=== PATIENT | female | born 1980 | race Caucasian/White ===

== ENCOUNTER 2020-05-07 10:54 | Outpatient (REF) | payer OTHER, SELFPAY ==
[2020-05-07 14:31] LABS: Alanine Aminotransferase 13 U/L (0-31); Albumin Level 4.1 g/dL (3.5-5.0); Alkaline Phosphatase 48 U/L (39-117); Anion Gap 13 (12-20); Aspartate Amino Transferase 13 U/L (5-31); Bilirubin Total 0.8 mg/dL (0.0-1.0); Blood Urea Nitrogen 12 mg/dL (9-16); Calcium 8.4 mg/dL (8.4-10.2); Carbon Dioxide 26 mmol/L (22-29); Chloride 105 mmol/L (96-108); Cholesterol 194 mg/dL; Estimated Glomerular Filt Rate > 60; Glucose Fasting 79 mg/dL (60-99); HDL Cholesterol 51 mg/dL; LDL Cholesterol Calculated 105 mg/dl; Potassium 4.1 mmol/l (3.3-5.1); Sodium 140 mmol/L (135-145); Total Protein 6.7 g/dL (6.5-8.0); Triglycerides 194 mg/dL
[2020-05-07 14:36] LABS: TSH reflex Free T4 0.67 mIU/mL (0.32-4.0)
== END 2020-05-07 10:55 | disposition home or self-care (01) ==
LOC: HO.HMGCLDS 10:54
PROVIDERS: PCP Nurse Practitioner Family; Visit Provider Nurse Practitioner Family
DX: Z00.00 Encounter for general adult medical examination without abnormal findings (principal)
CPT/HCPCS: 80053; 80061; 84443

== ENCOUNTER 2020-06-10 13:51 | Outpatient (REF) | payer OTHER, SELFPAY ==
[2020-06-10 13:55] LABS: Urine Cytology See Pathology rpt
== END 2020-06-10 13:52 | disposition home or self-care (01) ==
LOC: HO.LNP 13:51
PROVIDERS: Visit Provider Nurse Practitioner Family
DX: R31.29 Other microscopic hematuria (principal); K58.9 Irritable bowel syndrome, unspecified
CPT/HCPCS: 87086; 88112

== ENCOUNTER 2020-08-14 08:32 | Outpatient (REF) | payer OTHER, SELFPAY ==
[2020-08-14 09:50] LABS: Leukocytes Stool Qualitative NEGATIVE (NEGATIVE)
[2020-08-14 09:59] LABS: CDIFF Ag Negative (Negative); CDIFF Internal ctrl Dots and bkg OK (V); CDiff Toxin Negative (Negative)
[2020-08-14 10:07] LABS: Alanine Aminotransferase 11 U/L (0-31); Alkaline Phosphatase 37 U/L (39-117); Anion Gap 15 (12-20); Aspartate Amino Transferase 10 U/L (5-31); Bilirubin Total 0.5 mg/dL (0.0-1.0); Blood Urea Nitrogen 15 mg/dL (9-16); C Reactive Protein 0.27 mg/dL (< or = 0.50); Calcium 8.7 mg/dL (8.4-10.2); Carbon Dioxide 23 mmol/L (22-29); Chloride 108 mmol/L (96-108); Cholesterol 174 mg/dL; Estimated Glomerular Filt Rate > 60; Glucose Fasting 93 mg/dL (60-99); HDL Cholesterol 42 mg/dL; LDL Cholesterol Calculated 107 mg/dl; Potassium 4.3 mmol/L (3.3-5.1); Sodium 142 mmol/L (135-145); Total Protein 6.4 g/dL (6.5-8.0); Triglycerides 127 mg/dL
[2020-08-14 10:32] LABS: TSH reflex Free T4 0.54 uIU/mL (0.32-4.0)
[2020-08-14 10:33] LABS: Erythrocyte Sedimentation Rate 1 MM/HR (0-20)
== END 2020-08-14 08:33 | disposition home or self-care (01) ==
LOC: HO.LAB 08:32
PROVIDERS: PCP Nurse Practitioner Family; Visit Provider Nurse Practitioner Family
DX: Z00.00 Encounter for general adult medical examination without abnormal findings (principal); R19.7 Diarrhea, unspecified
CPT/HCPCS: 36415; 80053; 80061; 84443; 85652; 86140; 87045; 87046; 87177; 87209; 87324; 87329; 87338; 87449; 89055

== ENCOUNTER → 2020-09-05 13:20 | Outpatient (BNVA) | payer OTHER, SELFPAY | PROVIDERS: PCP Nurse Practitioner Family; Visit Provider Physician Assistant ==

== ENCOUNTER → 2020-10-22 12:41 | Outpatient (BNVA) | payer OTHER, SELFPAY | PROVIDERS: PCP Nurse Practitioner Family; Visit Provider Nurse Practitioner Family ==

== ENCOUNTER 2021-04-02 08:38 | Emergency (ER) | payer OTHER, SELFPAY ==
--- NOTE | 2021-04-02 | ECG_ITS ---
Test Reason : chest pain Blood Pressure : / mmHG Vent. Rate : 084 BPM Atrial Rate : 084 BPM P-R Int : 120 ms QRS Dur : 088 ms QT Int : 368 ms P-R-T Axes : 023 059 014 degrees QTc Int : 434 ms Normal sinus rhythm Normal ECG When compared with ECG of 14-DEC-2013 12:18, No significant change was found Referred By: Generic ED Physician Electronically Signed By:WATSON SALTER MD
--- NOTE | ~2021-04-02 | XR_ITS ---
EXAMINATION: XR CHEST CLINICAL INFORMATION: Chest pain COMPARISON: 10/22/2016 TECHNIQUE: Frontal view of the chest was obtained. FINDINGS: Lungs are well-inflated and clear. Trachea is midline in position. No interstitial disease, consolidation or mass. No pulmonary edema, pleural effusion or pneumothorax. Cardiac silhouette and pulmonary vessels are normal in size. The mediastinum and twyla have normal contour. The visualized bones, and upper abdomen, are unremarkable. XR/XR chest 1V IMPRESSION: No acute cardiopulmonary abnormality.
[2021-04-02 08:56] VITALS: BP 119/69; PULSE 80; RESP 9; TEMP 36.6; O2SAT 99; BMI 44.7
--- NOTE | 2021-04-02 09:27 | ED.CHESTPAIN ---
HPI - Chest Pain General Chief Complaint: Chest Pain Stated Complaint: chest pain Time Seen by Provider: 04/02/21 09:27 Source: patient Mode of arrival: ambulatory Limitations: no limitations History of Present Illness HPI narrative: Weird sensation in her chest on the left side down her left arm into her back. Described mostly as a burning. symptoms come on even at rest. No sudden in the family. Patient does have IBS issues. patient only smokes marijuana complaint: chest pain Timing of current episode: episodic (when the feelings come it lasts over an hour) Prior episodes: Yes Onset: during rest Pain location: left chest Pain radiation: left arm and back Quality: other (burning) Exacerbating factors: nothing Risk Factors Coronary artery disease risk factors: none Related Data Previous Rx's Medication Instructions Recorded omeprazole 20 mg capsule,delayed 20 mg PO DAILY #30 cap 05/31/20 release fluticasone propionate 50 1 spray INTRANASAL DAILY #16 ml 10/14/20 mcg/actuation nasal spray,suspension lactobacillus combination no.8 3 3,000 mmu cells PO DAILY #30 cap 10/22/20 billion cell capsule (Adult Probiotic) methylcellulose (laxative) 500 mg 500 mg PO DAILY #30 tab 10/22/20 tablet (Citrucel) albuterol sulfate 90 mcg/actuation 2 puff PO Q6H PRN 30 Days #8.5 g 10/29/20 aerosol inhaler dicyclomine 10 mg capsule 10 mg PO TID #90 cap 11/04/20 cetirizine 10 mg tablet 10 mg PO DAILY #30 tab 12/17/20 ProAir HFA 90 mcg/actuation 2 puff PO Q6H PRN #8.5 ea NS 03/20/21 aerosol inhaler (albuterol sulfate) pantoprazole 40 mg tablet,delayed 40 mg PO DAILY #20 tab 04/02/21 release (Protonix) Allergies Allergy/AdvReac Type Severity Reaction Status Date / Time azithromycin [From ZITHROMAX] Allergy Unknown hives Verified 10/22/20 12:41 cefaclor [From CECLOR] Allergy Unknown UNKNOWN Verified 10/22/20 12:41 Review of Systems Constitutional: Constitutional: Reports no additional constitutional complaints Eyes: Eyes: Reports no additional eye complaints ENT: Denies dizziness Cardiovascular: Cardiovascular: Reports no additional cardiovascular complaints Respiratory: Respiratory: Reports as per HPI Gastrointestinal: Gastrointestinal: Reports no additional gastrointestinal complaints Genitourinary: Genitourinary: Reports no additional female genitourinary complaints Musculoskeletal: Musculoskeletal: Reports no additional musculoskeletal complaints Integumentary/Breasts: Skin/Breast: Denies rash Neurologic: Reports system reviewed and no additional complaints, except as documented, Denies dizziness and Denies Sensory deficit (Neuro) Psychiatric: Psychiatric: Denies anxiety [facility] Past Medical History Medical History Dyspepsia Headache syndrome Irritable bowel Nausea Surgical History No pertinent past surgical history Family History Family History Father Medical history non-contributory Mother Medical history non-contributory Son No problems noted. Daughter No problems noted. 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 Physical Exam Vital Signs: Vital Signs: Last Vital Signs Temp 98 F 04/02/21 08:56 Pulse 80 04/02/21 08:56 Resp 9 L 04/02/21 08:56 BP 119/69 04/02/21 08:56 Pulse Ox 99 04/02/21 08:56 Body Mass Index 44.7 Const: General: healthy appearing Nutritional Appearance: average body habitus Orientation/consciousness: oriented to person and patient oriented x3 Limitations: no limitations HENMT: Head: Yes normal to inspection Ears: external ears normal General nose exam: Normal external nose present Mouth: Normal oral and palatal mucosa present and oropharynx normal Throat: Yes posterior oropharynx normal Eyes: General: appearance normal, both eyes and all related structures Neck: Other: supple Neck: Yes normal visual inspection Chest: Chest palpation & inspection: normal inspection of the chest Resp: Auscultation: clear to auscultation bilaterally Cardio: Jugular venous distension: no JVD Rate: regular rate Rhythm: regular rhythm Heart sounds: S1 normal heart sound present and S2 normal heart sound present GI: Inspection: Yes normal to inspection Palpation (GI): Soft to palpation, nontender and No hepatosplenomegaly present Auscultation: normal bowel sounds : General: Yes no CVA tenderness Back/Spine/Pelvis: Back: no CVA tenderness Skin: General skin exam: no rashes or lesions noted Neuro: General: oriented to person and patient oriented x3 Cranial nerves: Yes CN's II-XII intact bilaterally Motor exam (neuro): 5/5 motor strength present throughout Sensory Exam: No Sensory deficit (Neuro) Extrem: General: Yes normal to inspection Psych: Appearance: grossly normal Course Reevaluation(s) Reevaluation #1: Patient with normal EKG, normal CXR, normal labs and troponin despite at least 3 days of chest pain. My impression is that this is most likely GI, will start protonix and have patient follow up with PMD Time: 10:53 [facility] - Chest Pain Lab Data Result diagrams: 04/02/21 09:49 04/02/21 09:49 Labs: Lab Results 04/02/21 04/02/21 04/02/21 Range/Units 09:49 09:49 09:49 WBC 8.4 (4.8-10.8) X10*3/uL RBC 4.48 (4.20-5.50) X10*6/uL Hgb 14.0 (12.0-16.0) g/dl Hct 41.1 (37.0-47.0) % MCV 91.7 (80.0-98.0) fL MCH 31.3 (27.0-33.0) pg MCHC 34.1 (31.0-35.0) g/dl RDW 13.0 (11.0-16.0) % Plt Count 268 (160-400) X10*3/uL MPV 9.3 L (9.4-12.3) fL Immature Gran % (Auto) 0.4 (0.0-0.4) % Neut % (Auto) 68.7 (45-73) % Lymph % (Auto) 24.5 (20-40) % [place] % (Auto) 5.4 (2-11) % Eos % (Auto) 0.5 (0-4) % Baso % (Auto) 0.5 (0-2) % Lymph # (Auto) 2.1 (1.2-4.9) X10*3/uL [place] # (Auto) 0.5 (0.1-1.2) X10*3/uL Eos # (Auto) 0.0 (0.0-0.4) X10*3/uL Baso # (Auto) 0.0 (0.0-0.2) X10*3/uL Abs Immat Gran (auto) 0.03 (0.00-0.03) X10*3/uL Absolute Neuts (auto) 5.8 (2.0-8.3) x10*3/uL Absolute Nucleated RBC 0.000 (0.0-0.012) X10*3/uL Nucleated RBC % (auto) 0.0 (0.0-0.2) /100WBC Sodium 138 (135-145) mmol/L Potassium 4.0 (3.3-5.1) mmol/L Chloride 107 (96-108) mmol/L Carbon Dioxide 24 (22-29) mmol/L Anion Gap 11 L (12-20) BUN 11 (9-16) mg/dL Creatinine 0.57 (0.5-1.4) mg/dL Estim Creat Clear Calc 173.6 Estimated GFR > 60 Random Glucose 98 (60-115) mg/dL Calcium 8.6 (8.4-10.2) mg/dL Troponin I High Sens < 3.5 (<3.5-17.0) ng/L Imaging Data Chest x-ray: Radiologist's impression: IMPRESSION: No acute cardiopulmonary abnormality. ? ECG Data ECG #1: Attestation: I personally reviewed and interpreted this ECG as follows: Interpretation: sinus rate of 80, no st or twave changes Discharge Plan Discharge Clinical Impression: Dyspepsia, Atypical chest pain Chest pain Qualifiers: Chest pain type: unspecified Qualified Code(s): R07.9 - Chest pain, unspecified Patient Disposition: Home, Self-Care Instructions: Gastroesophageal Reflux Disease (ED), Noncardiac Chest Pain (ED) Prescriptions: New pantoprazole [Protonix] 40 mg tablet,delayed release (DR/EC) 40 mg PO DAILY Qty: 20 RF: 0 No Action omeprazole 20 mg capsule,delayed release(DR/EC) 20 mg PO DAILY Qty: 30 RF: 1 fluticasone propionate 50 mcg/actuation spray,suspension 1 spray intranasal DAILY Qty: 16 RF: 2 albuterol sulfate 90 mcg/actuation HFA aerosol inhaler 2 puff PO Q6H PRN (Reason: bronchospasm) 30 Days Qty: 8.5 RF: 3 dicyclomine 10 mg capsule 10 mg PO TID Qty: 90 RF: 1 cetirizine 10 mg tablet 10 mg PO DAILY Qty: 30 RF: 2 albuterol sulfate [ProAir HFA] 90 mcg/actuation HFA aerosol inhaler 2 puff PO Q6H PRN (Reason: for wheezing) Qty: 8.5 RF: 0 Citrucel 500 mg tablet 500 mg PO DAILY Qty: 30 RF: 5 Adult Probiotic 3 billion cell capsule 3,000 mmu cells PO DAILY Qty: 30 RF: 4 Referrals: Neo Leung, FI[employer]/CONTAINMENT WORKER-BC [Primary Care Provider] - 1 week
[2021-04-02 09:54] LABS: MANUAL DIFF FLAG NO
[2021-04-02 09:55] LABS: Basophils Percent Auto 0.5 % (0-2); Eosinophils Percent Auto 0.5 % (0-4); Hematocrit 41.1 % (37.0-47.0); Imm Gran Abs Auto 0.03 X10*3/uL (0.00-0.03); Imm Gran Pct Auto 0.4 % (0.0-0.4); Lymphocytes Absolute Auto 2.1 X10*3/uL (1.2-4.9); Lymphocytes Percent Auto 24.5 % (20-40); Mean Corpuscular HGB Conc 34.1 g/dl (31.0-35.0); Mean Corpuscular Hemoglobin 31.3 pg (27.0-33.0); Mean Corpuscular Volume 91.7 fL (80.0-98.0); Mean Platelet Volume 9.3 fL (9.4-12.3); Monocytes Absolute Auto 0.5 X10*3/uL (0.1-1.2); Monocytes Percent Auto 5.4 % (2-11); Neutrophils Absolute Auto 5.8 x10*3/uL (2.0-8.3); Neutrophils Percent Auto 68.7 % (45-73); Platelet Count 268 X10*3/uL (160-400); Red Blood Count 4.48 X10*6/uL (4.20-5.50); White Blood Count 8.4 X10*3/uL (4.8-10.8)
[2021-04-02] MEDS: Famotidine 20 MG TABLET PO (09:57)
[2021-04-02 10:21] LABS: Troponin-I High Sensitivity < 3.5 ng/L (<3.5-17.0)
[2021-04-02 10:45] LABS: Anion Gap 11 (12-20); Blood Urea Nitrogen 11 mg/dL (9-16); Calcium 8.6 mg/dL (8.4-10.2); Carbon Dioxide 24 mmol/L (22-29); Chloride 107 mmol/L (96-108); Creatinine Clr Calc Pharmacy 173.6; Estimated Glomerular Filt Rate > 60; Glucose Random 98 mg/dL (60-115); Sodium 138 mmol/L (135-145)
== END 2021-04-02 11:32 | disposition home or self-care (01) ==
PROVIDERS: Emergency Provider Emergency Medicine; PCP Nurse Practitioner Family
DX: R07.89 Other chest pain (principal); R10.13 Epigastric pain
CPT/HCPCS: 36415; 71045; 80048; 84484; 85025; 93005; 99283

== ENCOUNTER → 2021-04-10 14:48 | Outpatient (REF) | payer OTHER, SELFPAY ==
--- NOTE | 2021-04-10 14:55 | HM_ITS ---
Conclusion: 1. Patient was monitored for total period of 3 days and 2 hours 2. Baseline rhythm was normal sinus rhythm with average heart of 79 beats per minute 3. No significant pauses or bradycardia noted 4. Total of 11 isolated PACs accounting for less than 0.01% of total burden account for very rare PACs 5. No patient reported symptoms MTDD
== END ==
LOC: HO.CARD 14:48
PROVIDERS: Visit Provider Nurse Practitioner Family
DX: R07.9 Chest pain, unspecified (principal)
CPT/HCPCS: 93242

== ENCOUNTER 2021-05-02 14:26 | Outpatient (REF) | payer OTHER, SELFPAY ==
[2021-05-02 16:10] LABS: Lipase 23 U/L (8-78)
[2021-05-02 16:29] LABS: TSH reflex Free T4 0.62 uIU/mL (0.32-4.0)
[2021-05-02 16:42] LABS: Folate 9.4 ng/mL (> or = 4.0); Vitamin B12 295 pg/mL (200-900)
[2021-05-06 14:26] LABS: Vitamin D 25-OH, D2 <4 ng/mL; Vitamin D 25-OH, D3 16 ng/mL; Vitamin D 25-OH, Total 16 ng/mL (30-100)
[2021-05-06 16:47] LABS: Transglutaminase Ab IgG <1.0 U/mL; Transglutaminase IgA <1.0 U/mL
== END 2021-05-02 14:27 | disposition home or self-care (01) ==
LOC: HO.LAB 14:26
PROVIDERS: Absent Provider Nurse Practitioner Family; PCP Nurse Practitioner Family; Visit Provider Nurse Practitioner Family
DX: R10.11 Right upper quadrant pain (principal); R19.7 Diarrhea, unspecified; K58.2 Mixed irritable bowel syndrome; K21.9 Gastro-esophageal reflux disease without esophagitis; E55.9 Vitamin D deficiency, unspecified; R14.0 Abdominal distension (gaseous)
CPT/HCPCS: 36415; 81479; 82306; 82397; 82607; 82746; 83516; 83520; 83690; 84443; 86140; 88346; 88350; 99212

== ENCOUNTER → 2021-06-12 08:31 | Outpatient (REF) | payer OTHER, SELFPAY ==
--- NOTE | ~2021-06-12 | NM_ITS ---
Lexiscan Myocardial perfusion study Indication: Chest pain, assess for coronary disease and ischemia Technique: The patient was brought in for a Lexiscan perfusion study on 06/12/2021 and was injected 0.4 mg of Lexiscan intravenously. Within a minute of this injection 40 mCi of sestamibi was given intravenously. Images were obtained using the SPECT gamma camera interlaced with the gating device. Images were obtained in supine position. Resting perfusion study was performed on 06/16/2021. Patient was administered 40 mCi of sestamibi intravenously at rest. Images were then obtained in supine position. Total DLP 171mGy-cm. Images were processed with the software and compared side to side in short axis, horizontal long axis and vertical long axis views. Findings: Raw acquisition was reviewed. The stress perfusion study showed slightly diminished tracer uptake in the mid anterior wall. With CT at admission correction, perfusion rather appears worse, most likely technical in nature. The gated study shows normal LV systolic function with calculated LVEF of 56%. LV cavity is normal in size. The gated study shows normal wall thickening and contraction of segments. Resting study shows slightly reduced tracer uptake in the mid anterior wall. With CT attenuation correction, there is worsened uptake in the distal part of anterior wall, apex, most likely artifactual. Gating at rest reveals normal wall motion with ejection fraction at 68%. The findings are consistent with mild midanterior fixed defect most likely artifactual, possibly from soft tissue attenuation. No reversible defects. NM/NM cardiolite stress test Impression: 1. Myocardial perfusion imaging study shows no evidence of any ischemia or infarction. Likely normal perfusion. 2. Gated LVEF is 56% during stress and 68% during rest. 3. Transient ischemic dilatation not present. EKG component of the test reported separately.
--- NOTE | 2021-06-12 08:36 | CA_ITS ---
Transthoracic Echocardiogram Patient (Last, First, Middle): Chhaya Adler, Gender: Female Date of : 1980 Age: 40 Procedure Date: 06/12/2021 Procedure Type: Transthoracic Echocardiogram Location: OP Height: 165.1 cm Weight: 127.01 kg BSA: 2.28 m2 Heart Rate: bpm BP: 105 / 60 mmHg Sr. Strategic Sourcing Manager: DAVID Referring MD: Neo Leung [facility] Licensed Reactor Operator: Marcial Salvador MD Symptoms: R07.9 - Chest pain, unspecified Study Quality: Fair ECG Rhythm: Sinus Conclusions: - Essentially normal study Findings Left Ventricle Normal left ventricular size, thickness, and systolic function. The visually estimated ejection fraction is between 60-65%. Spectral Doppler is indicative of a normal filling pattern. Right Ventricle Normal right ventricular cavity size and systolic function. Atria Both atria are normal in size. There is a mobile atrial septum noted. Interatrial shunt cannot be excluded. Aortic Valve The aortic valve structure and function is likely normal. There is no aortic valve stenosis. There is no aortic valve regurgitation. Mitral Valve Normal mitral valve structure and function. There is trace mitral valve regurgitation. There is no mitral valve stenosis. Pulmonic Valve The pulmonic valve is likely normal. Tricuspid Valve Likely normal tricuspid valve structure and function. There is trace tricuspid valve regurgitation. The right ventricular systolic pressure is normal. The right ventricular systolic pressure is 27 mmHg. Normal right atrial pressure. There is no evidence of pulmonary hypertension. Great Vessels All visible segments of the aorta are normal in size. The pulmonary artery was not well visualized. Venous The inferior vena cava is normal in size and collapses greater than 50% with inspiration. Pericardium/Pleural There is no evidence of pericardial effusion. Prior Study Comparison No prior study available for comparison. Measurements M-Mode Liner Measurements Normals - Women/Men LVPWd: 1.43 0.6-0.9/0.6-1.0 cm 2D Linear Measurements IVSd: 0.88 0.6-0.9/0.6-1.0 cm LVIDd: 5.10 3.9-5.3/4.2-5.9 cm LVIDd Index: 2.24 2.4-3.2/2.2-3.1 cm/m2 LVIDs: 3.30 2.0-3.6 cm LVPWd: 1.23 0.7-1.1 cm Ao Root: 3.00 2.1-3.5 cm LA Diam: 3.70 2.7-3.8/3.0-4.0 cm LAIDs Index: 1.62 1.5-2.3 cm/m2 LV Mass: 251.35 67-162/88-224 g LV Mass Index: 110.24 43-95/49-115 g/m2 LVOT Diam: 2.00 3.0+(-)1.3 cm 2D Systolic Function EF 4C: 69.30 >55% EF 2C: 65.10 >55% EF BiP: 66.20 >55% Mitral Valve MV Pk E: 0.76 MV PK A: 0.51 MV Decel Time: 248.00 E/A: 1.50 E'Lateral: 11.50 E'Medial: 8.81 E/E' Med: 8.70 E/E' Lat: 6.60 PHT: 73.00 MVA PHT: 3.01 Decel Comanche: 3.07 Aortic Valve AoV Pk Tomi: 1.53 AoV Pk Grad: 9.00 LVOT LVOT Pk Tomi: 1.26 LVOT Mn Tomi: 0.85 LVOT VTI: 0.29 LVOT Pk Grad: 6.00 LVOT Mn Grad: 3.00 LVOT Diam: 2.00 LVOT Area: 3.14 Diastolic Function MV Pk E: 0.76 MV Pk A: 0.51 E/A: 1.50 E'Medial: 8.81 E/E' Med: 8.70 E' Laterial: 11.50 E/E' Lat: 6.60 Right Ventricle TAPSE (mm): 2.67 TVS' Tomi: 14.40 Tricuspid Valve TR Pk Tomi: 2.46 TR Pk Grad: 24.00 RA Press: 3.00 RVSP: 27.00 Great Vessels Aorta Ao Root-2D: 3.00 2.0-3.7 cm Updated in Other Vendor System with Status of Final Marcial Salvador MD electronically signed on 06/12/2021 11:02:26 AM with status of Final
--- NOTE | 2021-06-12 08:58 | CA_ITS ---
Acquisition Time: 2021-06-12 09:48:42 Total Exercise Time: 00:05:46 Test Indications: Chest Pain FAMILY HX CAD Medications: ALBUTEROL OMEPRAZOLE PRO AIR ONDANSETRON Protocol: FRANTZ Max HR: 127 BPM 70% of Pred: 181 BPM Max BP: 148/082 mmHG Max Work Load: 7.0 METS Exercise stress test with exercise 5 min 46 sec of Frantz protocol, achieving 66% MPHR and 7 MET with reported inability to walk at faster pace due to ankle issue and asthma. Treadmill placed in recovery and slowed to 1 MPH. Testing changed to a pharmacological nuclear stress test with Lexiscan injection, with report of sob, no chest pains, without arrythmia, with normotensive response to injection, with nondiagnostic EKG for ischemia. In recovery she reported mild lightheadedness that was treated with Aminophylline 75mg IVP to reverse Lexiscan with resolution of symptom. Nuclear images pending. Test reviewed with Dr Green. Referred By: Neo Leung Overread By: JEROME YAN
== END ==
LOC: HO.CARD 08:31
PROVIDERS: Visit Provider Nurse Practitioner Family
DX: R07.9 Chest pain, unspecified (principal); Z82.49 Family history of ischemic heart disease and other diseases of the circulatory system
CPT/HCPCS: 78452; 93017; 93306; A9500; J0280; J2785

== ENCOUNTER 2021-08-25 19:01 | Emergency (ER) | payer OTHER, SELFPAY | END 2021-08-25 22:12 | disposition left against medical advice (07) | PROVIDERS: Emergency Provider Emergency Medicine; PCP Emergency Medicine | DX: Z04.1 Encounter for examination and observation following transport accident (principal) ==

== ENCOUNTER → 2022-09-21 15:32 | Outpatient (BNVA) | payer OTHER, SELFPAY | PROVIDERS: PCP Nurse Practitioner Family; Visit Provider Nurse Practitioner Family | DX: K21.9 Gastro-esophageal reflux disease without esophagitis (principal); K58.2 Mixed irritable bowel syndrome; R10.13 Epigastric pain; E55.9 Vitamin D deficiency, unspecified | CPT/HCPCS: 99212 ==

== ENCOUNTER 2022-11-27 08:38 | Outpatient (REF) | payer OTHER, SELFPAY ==
[2022-11-27 11:32] LABS: Appearance Urine Clear; Color Urine Yellow; Glucose Urine UA Negative (Negative); Leukocyte Esterase Urine Negative (Negative); Nitrite Urine Negative (Negative); PH 7.5 (5.0-9.0); Specific Gravity - Urine 1.025 (1.005-1.025); UMIC TRIGGER UACC YES; Urine Blood Trace (Negative); Urine Ketones Negative (Negative); Urine Protein Negative (Neg-Trace)
[2022-11-27 11:36] LABS: Bacteria Urine None Seen (None Seen); Hyaline Casts Urine 0-2 /LPF (0-2); WBC Urine 0-5 /HPF (0-5)
[2022-12-02 11:48] LABS: Vitamin D 25-OH, D2 <4 ng/mL; Vitamin D 25-OH, D3 20 ng/mL; Vitamin D 25-OH, Total 20 ng/mL (30-100)
== END 2022-11-27 08:39 | disposition home or self-care (01) ==
LOC: HO.HMGCLDS 08:38
PROVIDERS: Absent Provider Nurse Practitioner Family; PCP Nurse Practitioner Family; Visit Provider Nurse Practitioner Family
DX: Z00.00 Encounter for general adult medical examination without abnormal findings (principal); E55.9 Vitamin D deficiency, unspecified; R19.7 Diarrhea, unspecified; R10.9 Unspecified abdominal pain; Z77.29 Contact with and (suspected) exposure to other hazardous substances
CPT/HCPCS: 36415; 80053; 80061; 81001; 82306; 82607; 82746; 83690; 84443; 85025

== ENCOUNTER 2023-04-13 14:45 | Outpatient (AMB) | payer OTHER, SELFPAY ==
--- NOTE | 2023-04-13 14:48 | A.OFFVIS_ITS ---
Intake Vital Signs 04/13/23 14:50 Height 5 ft 5 in Weight 302 lb 0.533 oz BMI 50.3 BP 111/62 Blood Pressure Location Lt brachial Position Sitting Pulse 79 Intake Visit Reasons: follow up r/s from 12/30 Intake Note: Chhaya presents in the office as a follow up. CC: She states that she is having the same symptoms as she usually has. Mechanotherapist Required: No Allergies azithromycin [From ZITHROMAX] Allergy (Unknown, Verified 04/13/23 14:51) hives cefaclor [From CECLOR] Allergy (Unknown, Verified 04/13/23 14:51) UNKNOWN HPI follow up r/s from 12/30 HPI Details LAST VISIT: Irritable bowel Excluded IBD, most likely irritable bowel. Discussed with patient FODMAP diet. List of food to avoid as well as list of food recommended given to patient. Patient can also try elimination diet if that is easier to follow. Patient has symptoms of constipation then loose stools depending on the food that she eats. I will send script for Citrucel to help her bulk her stools and senna to help her eliminate her bowels better. Dyspepsia Occasional dyspepsia without dysphagia or odynophagia. Discussed with patient avoiding dietary triggers and late night snacking. Staying upright for minimum 3 hours after meals discussed with patient. Patient can continue omeprazole. She can take famotidine at that time. Patient also reports postprandial abdominal bloating which is most likely related to the type of food that she, however we will rule out pancreatic insufficiency. Will order lipase to rule out pancreatitis. Possibility of intolerance to certain food we will order RAST allergen test GERD (gastroesophageal reflux disease) Symptoms of dyspepsia and acid reflux as well as epigastric discomfort depending on the food the patient eats most likely. Will send her to check for H pylori. Patient will be sent in near future for upper endoscopy to rule out esophagitis, gastritis, duodenitis, gastric or peptic ulcers, H pylori, Zapien's I will see her in 7 weeks, sooner on as needed basis. Patient is agreeable to this plan and verbalizes understanding of instructions. She was given the opportunity to ask questions and all questions answered. ? Thank you for allowing me to participate in her care Plan Orders Pancreatic Elastase-1 Today R10.9 - Unspecified abdominal pain Vitamin B12 and Folate Today R19.7 - Diarrhea, unspecified Lipase Today R10.9 - Unspecified abdominal pain Rast Allergen Today K21.9 - Gastro-esophageal reflux disease without esophagitis Vitamin D 25-OH (D2 and D3) Today E55.9 - Vitamin D deficiency, unspecified H pylori Ag Stool Today K21.9 - Gastro-esophageal reflux disease without esophagitis Medications New famotidine (Pepcid) 20 mg PO BEDTIME 30 tabs 3RF K21.9 - Gastro-esophageal reflux disease without esophagitis methylcellulose (laxative) (Citrucel) take it with full glass of water 500 mg PO DAILY 90 tabs 2RF K59.00 - Constipation, unspecified sennosides (Natural Senna Laxative) 8.6 mg PO BEDTIME 90 tabs 3RF constipation K59.00 - Constipation, unspecified TODAY'S VISIT Patient is here today for follow-up. Patient continues to have same symptoms of epigastric discomfort, postprandial abdominal bloating. Occasional loose stools and constipation. Patient reports that omeprazole was not helpful. Has not done her blood work that was order as mentioned above during last visit. Still continues with same symptoms. Has not done any diet modifications. Has not lost any weight. More sedentary lifestyle. 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 [facility] Medical History Nausea Irritable bowel Headache syndrome Dyspepsia Surgical History (Updated 04/13/23 @ 14:51 by LU Cintron) Hx of emergency section No pertinent past surgical history Family History Father Medical history non-contributory Mother Medical history non-contributory Son No problems noted. Daughter No problems noted. 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 Cognitive needs: No Hearing needs: No Vision needs: No Review of Systems Const Denies weight loss ENT Reports no additional complaints, Denies dysphagia and Denies odynophagia Card Reports no additional complaints Resp Reports no additional complaints GI Reports abdominal pain, Denies belching, Denies melena, Reports bloating, Denies change in bowel habits, Reports constipation, Denies dysphagia, Denies excessive flatus, Reports dyspepsia, Reports heartburn, Denies diarrhea, Denies loose stools, Denies nausea, Denies odynophagia and Denies vomiting Reports no additional complaints Musc Reports no additional complaints Neuro Reports no additional complaints Psych Reports no additional complaints Endo Reports no additional complaints Physical Exam Vital Signs: Last Vital Signs Pulse 79 04/13/23 14:50 BP 111/62 04/13/23 14:50 BMI result Body Mass Index 50.3 Const General: no acute distress Nutritional Appearance: obese Orientation/consciousness: patient oriented x3 HEENT Head: Yes normal to inspection, Yes normocephalic and Yes atraumatic Eyes General: appearance normal, both eyes and all related structures Neck Neck: Yes normal visual inspection, Yes full ROM and Yes trachea midline Thyroid: Thyroid normal Resp Effort & Inspection: normal respiratory effort, able to speak in complete sentences, no tracheal deviation and symmetric chest movement Auscultation: clear to auscultation bilaterally Cardio Rate: regular rate GI Inspection: Yes normal to inspection, No distended and Yes obesity Palpation (GI): Soft to palpation, not firm, nontender and No hepatosplenomegaly present Auscultation: normal bowel sounds General: Yes no CVA tenderness Back/Spine/Pelvis Back: no CVA tenderness Skin General skin exam: elasticity normal, turgor normal and dry skin Neuro General: patient oriented x3 Psych Appearance: grossly normal Mental Status: mental status grossly normal Assessment & Plan Assessment & Plan (1) Irritable bowel: Code(s): K58.9 - Irritable bowel syndrome without diarrhea Qualifiers: Irritable bowel syndrome type: with both diarrhea and constipation Qual ified Code(s): K58.2 - Mixed irritable bowel syndrome (2) Dyspepsia: Code(s): R10.13 - Epigastric pain (3) GERD (gastroesophageal reflux disease): Code(s): K21.9 - Gastro-esophageal reflux disease without esophagitis Qualifiers: Esophagitis presence: esophagitis presence not specified Qualified Code(s): K21.9 - Gastro-esophageal reflux disease without esophagitis Plan Patient reports feeling occasionally nauseous. Discussed with patient the importance of emptying her bowels completely. Continue senna or Colace. Patient was also advised to try MiraLax if those 2 are not working. Patient can start taking Nexium in the morning as omeprazole has not been working for her. Encouraged patient to be more strict about diet. Trying to lose weight. Try to exercise. Patient was also encouraged to get her blood work done as well as stool studies. Patient will be sent for upper endoscopy to rule out gastritis, esophagitis, Zapien's, gastric or peptic ulcers, H pylori. I will see her after the procedure. Patient is agreeable to this plan and verbalizes understanding of instructions. She was given the opportunity to ask questions and all questions answered. Patient does have a history of asthma. No cardiac or respiratory symptoms. No issues with anesthesia in the past. Not on any anticoagulation therapy. Medications: New ondansetron 4 mg PO Q8H PRN 20 tabs 0RF nausea and vomiting R11.0 - Nausea esomeprazole magnesium (Nexium) 40 mg PO DAILY PRN 90 caps 5RF nausea K21.9 - Gastro-esophageal reflux disease without esophagitis Discontinued omeprazole Discontinued Reason: Doctor's Order 40 mg PO DAILY 90 days 90 caps 1RF K58.9 - Irritable bowel syndrome without diarrhea, R10.13 - Epigastric pain Coding Level of Care Code Tele Est Pt Level 4 (84567) Diagnoses Irritable bowel syndrome with both constipation and diarrhea K58.2 Irritable bowel syndrome type: with both diarrhea and constipation Dyspepsia R10.13 Gastroesophageal reflux disease, unspecified whether esophagitis present K21.9 Esophagitis presence: esophagitis presence not specified Time Spent (min) 35 Comment 20 minutes spent with patient and additional 15 minutes spent reviewing her records
[2023-04-13 14:50] VITALS: BP 111/62; PULSE 79; BMI 50.3
== END 2023-04-13 15:11 | disposition home or self-care (01) ==
PROVIDERS: PCP Nurse Practitioner Family; Visit Provider Nurse Practitioner Family
DX: K58.2 Mixed irritable bowel syndrome (principal); R10.13 Epigastric pain; K21.9 Gastro-esophageal reflux disease without esophagitis
CPT/HCPCS: 99214

== ENCOUNTER → 2023-04-13 14:45 | Outpatient (BNVA) | payer OTHER, SELFPAY | PROVIDERS: PCP Nurse Practitioner Family; Visit Provider Nurse Practitioner Family ==

== ENCOUNTER 2023-06-09 14:30 | Outpatient (AMB) | payer OTHER, SELFPAY ==
[2023-06-09 15:20] VITALS: BP 130/80; PULSE 76; TEMP 36.7; O2SAT 97; BMI 50.2
--- NOTE | 2023-06-09 15:20 | MHC.OFFWIV ---
Intake Vital Signs 06/09/23 15:20 Height 5 ft 5 in Weight 302 lb BMI 50.2 BP 130/80 Blood Pressure Location Rt brachial Position Sitting Pulse 76 Pulse Source Pulse Oximeter Temp 98.0 F Temp Source Oral Pulse Oximetry (%) 97 Intake Visit Reasons: EST/sinus infection?(lobby) Intake Note: pt is here for c.o possible sinus infection, with sinus pressure and ear pain Patient Tobacco Use Status: Former Tobacco user Allergies azithromycin [From ZITHROMAX] Allergy (Unknown, Verified 06/09/23 15:20) hives cefaclor [From CECLOR] Allergy (Unknown, Verified 06/09/23 15:20) UNKNOWN Do you need a note to return to daycare/school/sports/work: Yes HPI HPI Comments History of Present Illness Details This is a 42-year-old female with a past medical history of asthma presenting for evaluation of sinus congestion and left ear pain that she has had for the past 2 days. Patient states that she has been using her nebulized albuterol more frequently. Patient denies having any overt fevers, chills, dental pain, facial pain, sore throat, chest pain or shortness of breath. [facility] Medical History Nausea Irritable bowel Headache syndrome Dyspepsia Surgical History Hx of emergency section No pertinent past surgical history Family History Father Medical history non-contributory Mother Medical history non-contributory Son No problems noted. Daughter No problems noted. 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 Cognitive needs: No Hearing needs: No Vision needs: No Review of Systems Const All systems reviewed & are unremarkable except as noted in HPI and below Reports as per HPI, Denies body aches, Denies chills and Denies fever(s) Eyes Reports no additional complaints ENT Reports no additional complaints, Reports otalgia (left ear), Reports sinus pressure and Reports sore throat Card Reports no additional complaints Resp Reports cough, Denies stridor and Reports wheezing Skin/Breast Reports system reviewed and no additional complaints, except as documented Aller/Immun Reports wheezing Physical Exam Vital Signs: Last Vital Signs Temp 98.0 F 06/09/23 15:20 Pulse 76 06/09/23 15:20 BP 130/80 06/09/23 15:20 Pulse Ox 97 06/09/23 15:20 BMI result Body Mass Index 50.2 Afebrile, POX 97%. Const General: cooperative, healthy appearing, comfortable and no acute distress Nutritional Appearance: overweight Orientation/consciousness: patient oriented x3 Limitations: no limitations HEENT Head: Yes normal to inspection and Yes normocephalic Ears: hearing grossly normal bilaterally, external ears normal, TM's normal bilaterally and EAC's normal General nose exam: Normal external nose present Face and sinus: Yes normal facial exam and Yes sinuses nontender Mouth: Normal oral and palatal mucosa present Teeth and gingiva: dentition normal Throat: Yes postnasal drainage Eyes Eyelids: Yes eyelids normal Conjunctivae: conjunctivae normal Sclerae: sclerae normal Corneas: corneas normal Pupils: Equal, round and reactive pupils present EOM: EOMs intact bilaterally Neck Lymphatic: no lymphadenopathy noted Resp Effort & Inspection: normal respiratory effort, able to speak in complete sentences, no audible wheezes and no use of accessory muscles Auscultation: wheezes expiratory wheezes and lower bilaterally Cardio Rate: regular rate Rhythm: regular rhythm Skin General skin exam: no rashes or lesions noted Neuro General: patient oriented x3 Cranial nerves: Yes Equal, round and reactive pupils present Psych Appearance: grossly normal Mental Status: mental status grossly normal Insight: Good insight present (Psych) Judgement: Good judgement present (Psych) Assessment & Plan Assessment & Plan (1) Acute viral sinusitis: Code(s): J01.90 - Acute sinusitis, unspecified; B97.89 - Other viral agents as the cause of diseases classified elsewhere Plan: Prednisone burst dosing for 5 days; nasal saline spray twice daily. Patient will follow-up with her primary care provider if her symptoms do not resolve. Medications: New prednisone 40 mg (2 x 20 mg) PO DAILY 10 tabs 0RF Coding Level of Care Code Est Pt Level 3 (17456) Diagnoses Acute viral sinusitis J01.90; B97.89 Time Spent (min) 20
== END 2023-06-09 16:01 | disposition home or self-care (01) ==
PROVIDERS: PCP Nurse Practitioner Family; Visit Provider Physician Assistant
DX: J01.90 Acute sinusitis, unspecified (principal); B97.89 Other viral agents as the cause of diseases classified elsewhere
CPT/HCPCS: 99213

== ENCOUNTER 2023-07-28 10:54 | Outpatient (AMB) | payer OTHER, SELFPAY ==
--- NOTE | 2023-07-28 10:57 | A.OFFPC_ITS ---
Vital Signs 07/28/23 10:59 Weight 304 lb BP 132/80 Blood Pressure Location Lt brachial Position Sitting Pulse 68 Pulse Source Pulse Oximeter Pulse Oximetry (%) 98 Oxygen Delivery Method Room Air Intake Visit Reasons: PE Intake Note: Patient here for physical exam, no new issues or concerns. Last Pap: 2022 [facility] last Mammo: in chart Allergies azithromycin [From ZITHROMAX] Allergy (Unknown, Verified 07/28/23 12:03) hives cefaclor [From CECLOR] Allergy (Unknown, Verified 07/28/23 12:03) UNKNOWN Medication List - Last Reconciled 07/28/23 by GRAY Cason acetaminophen (Tylenol Extra Strength) 1,000 mg PO Q6H PRN albuterol sulfate 2.5 mg (3 mL) inhalation TID PRN albuterol sulfate 90 mcg/actuation (Ventolin HFA) 2 puffs inhalation Q6H PRN budesonide 90 mcg/actuation (Pulmicort Flexhaler) 1 inh inhalation Q12H cetirizine 10 mg PO DAILY cholecalciferol (vitamin D3) 50 mcg PO DAILY esomeprazole magnesium (Nexium) 40 mg PO DAILY PRN famotidine (Pepcid) 20 mg PO BEDTIME fluticasone propionate 50 mcg/actuation 1 spray intranasal DAILY methylcellulose (laxative) (Citrucel) 500 mg PO DAILY Tobacco use date assessed: 07/28/23 Dental Screening Dental Screen Date: 07/28/23 Did you have a dental visit in the last 12 months?: Yes Did you have a dental problem in the last 6 months where you did not have access to dental care?: No Was dental information given to patient?: Patient has dentist HPI PE HPI Details pt is here for a PE. pt has a obstetrician and gynaecologist, mammo is up to date. PT sees GI, scheduled for a endo in October. PFSH Medical History Nausea Irritable bowel Headache syndrome Dyspepsia Surgical History Hx of emergency section No pertinent past surgical history Family History Father Medical history non-contributory Mother Medical history non-contributory Son No problems noted. Daughter No problems noted. 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 1. Little interest or pleasure in doing things: not at all 2. Feeling down, depressed, or hopeless: not at all 3. Trouble falling or staying asleep, or sleeping too much: not at all 4. Feeling tired or having little energy: not at all 5. Poor appetite or overeating: not at all 6. Feeling bad about yourself - or that you are a failure or have let yourself or your family down: not at all 7. Trouble concentrating on things, such as reading the newspaper or watching television: not at all 8. Moving or speaking so slowly that other people could have noticed. Or the opposite - being so fidgety or restless that you have been moving around a lot more than usual: not at all 9. Thoughts that you would be better off or of hurting yourself in some way: not at all Total score: 0 Depression Screening Interpretation: Negative Depression Screening Done: Yes 89854 - PHQ-9 Billing: Yes Source: Developed by Drs. Reese Gann, Rain Walton, Zac Gonzalez and colleagues, with an educational curry from [employer]. Thrive Questionnaire Date Thrive assessed: 07/28/23 I am a: Patient What is your living situation today?: I have a steady place to live Within the past 12 months, did the food you bought not last and you didn't have the money to get more?: Never true Within the past 12 months, did you worry whether your food would run out before you got money to buy more?: Never true Do you have trouble paying for medicines?: No Do you have trouble getting transportation to medical appointments?: No Do you have trouble paying your heating and electricity bill?: No Do you have trouble taking care of your child, family member or friend?: No Do you have trouble with day-to-day activities such as bathing, preparing meals, shopping, managing finances, etc.?: No Are you currently unemployed and looking for a job?: No Are you interested in more education?: No Currently or been in a relationship where the following occur: no concerns reported THRIVE Score: 0 AUDIT C Alcohol Use Questionnaire (AUDIT-C) 1. How often do you have a drink containing alcohol?: Monthly or less 2. How many drinks containing alcohol do you have on a typical day when you are drinking?: 1 or 2 3. How often do you have six or more drinks on one occasion?: Never Total Score: 1 Score Reviewed/Action Taken: No GOGO-7 AMB Questionnaire GOGO-7 Date GOGO - 7 assessed: 07/28/23 Feeling nervous, anxious, or on edge: 0 = Not at all Not being able to stop or control worryin = Not at all Worrying too much about different things: 0 = Not at all Trouble relaxin = Not at all Being so restless that it is hard to sit still: 0 = Not at all Becoming easily annoyed or irritable: 0 = Not at all Feeling afraid as if something awful might happen: 0 = Not at all Total GOGO-7 score (0-4 normal; 5-9 mild; 10-14 moderate; 15-21 severe): 0 Source: Developed by Drs. Reese Gann, Rain Walton, Zac Gonzalez and colleagues, with an educational curry from [employer]. GOGO-7 Assessment Billing GOGO-7 Assessment Tool: GOGO-7 Assessment 67630 Review of Systems Const Denies chills and Denies fever(s) Eyes Denies blurry vision ENT Denies vertigo, Denies dizziness and Denies sore throat Card Denies chest pain at rest, Denies chest pain with activity, Denies diaphoresis, Denies dyspnea and Denies dyspnea on exertion Resp Denies cough, Denies dyspnea, Denies dyspnea on exertion and Denies wheezing GI Details: nausea. Denies abdominal pain, Denies melena, Denies hematochezia, Denies constipation, Reports diarrhea (intermittent) and Denies loose stools Denies hematuria Musc Denies numbness and Denies tingling Skin/Breast Denies lesions Neuro Denies vertigo, Denies dizziness, Denies numbness and Denies tingling Psych Denies anxiety, Denies depression, Denies homicidal ideation, Denies suicidal ideation and Denies other (substance abuse) Aller/Immun Denies wheezing Physical exam (Primary Care) Vital Signs: Last Vital Signs Pulse 68 07/28/23 10:59 BP 132/80 07/28/23 10:59 Pulse Ox 98 07/28/23 10:59 Oxygen Delivery Method Room Air 07/28/23 10:59 Tobacco/Smoking Status: Tobacco use Status Tobacco use date assessed 07/28/23 07/28/23 11:03 Patient Tobacco Use Status Former Tobacco user 07/28/23 10:59 e-Cigarette/Vaping Use Never Used 07/28/23 10:59 PHQ-9: PHQ-9 Score PHQ-9: Total score 0 07/28/23 11:47 Depression Screening Interpretation: Negative Thrive Assessment: Date of Thrive Assessment Date Thrive assessed 07/28/23 07/28/23 11:47 Currently or been in a relationship where the following occur: no concerns reported Const General: cooperative Nutritional Appearance: well nourished and obese Orientation/consciousness: patient oriented x3 HENMT Head: Yes normal to inspection, Yes normocephalic and Yes atraumatic Ears: TM normal on the right and TM normal on the left Eyes General: appearance normal, both eyes and all related structures Alignment and Position: alignment normal and position normal Neck Neck: Yes normal visual inspection and Yes no lymphadenopathy Resp Effort & Inspection: normal respiratory effort Auscultation: clear to auscultation bilaterally Cardio Rate: regular rate Rhythm: regular rhythm Heart sounds: S1 normal heart sound present, S2 normal heart sound present and no murmurs GI Palpation (GI): Soft to palpation and nontender Auscultation: normal bowel sounds Skin Rashes: no rashes Neuro General: patient oriented x3, moves all extremities, no focal motor deficits and deep tendon reflexes 2+ bilaterally Romberg Test: Negative Extrem Right lower extremity: no edema Left lower extremity: no edema Psych Affect: normal affect Attitude: cooperative Thought process: Normal thought process present Assessment and Plan Assessment & Plan (1) Physical exam: Code(s): Z00.00 - Encounter for general adult medical examination without abnormal findings Plan: labs, follow up with GI for symptoms Coding Level of Care Code Est Pt Prev Care 40-64y(03916) Diagnoses Physical exam Z00.00 Additional Codes GOGO-7 Assessment Billing - GOGO-7 Assessment Tool: GOGO-7 Assessment 56030 ([id number])
[2023-07-28 10:59] VITALS: BP 132/80; PULSE 68; O2SAT 98
== END 2023-07-28 14:48 | disposition home or self-care (01) ==
PROVIDERS: Visit Provider Nurse Practitioner Family
DX: Z00.00 Encounter for general adult medical examination without abnormal findings (principal)
CPT/HCPCS: 99396

== ENCOUNTER 2024-02-01 14:05 | Outpatient (AMB) | payer OTHER, SELFPAY ==
[2024-02-01 14:16] VITALS: BP 134/80; PULSE 82; O2SAT 100; BMI 47.8
--- NOTE | 2024-02-01 14:16 | MHC.PC.OV ---
Vital Signs 02/01/24 14:16 Height 5 ft 5 in Weight 287 lb 6 oz BMI 47.8 BP 134/80 Blood Pressure Location Rt brachial Position Sitting Pulse 82 Pulse Source Pulse Oximeter Pulse Oximetry (%) 100 Oxygen Delivery Method Room Air Intake Visit Reasons: persistent nausea, dizzyness,asthma Intake Note: Patient here for nausea and dizziness that has been present for about 1 month. Allergies azithromycin [From ZITHROMAX] Allergy (Unknown, Verified 02/01/24 14:21) hives cefaclor [From CECLOR] Allergy (Unknown, Verified 02/01/24 14:21) UNKNOWN Medication List - Last Reconciled 02/01/24 by GRAY Cason acetaminophen (Tylenol Extra Strength) 1,000 mg PO Q6H PRN albuterol sulfate 2.5 mg (3 mL) inhalation TID PRN albuterol sulfate 90 mcg/actuation (Ventolin HFA) 2 puffs inhalation Q6H PRN budesonide 90 mcg/actuation (Pulmicort Flexhaler) 1 inh inhalation Q12H cetirizine 10 mg PO DAILY cholecalciferol (vitamin D3) 50 mcg PO DAILY esomeprazole magnesium (Nexium) 40 mg PO DAILY PRN famotidine (Pepcid) 20 mg PO BEDTIME fluticasone propionate 50 mcg/actuation 1 spray intranasal DAILY methylcellulose (laxative) (Citrucel) 500 mg PO DAILY nebulizers As directed with mask and tubing semaglutide (weight loss) (Wegovy) 0.25 mg (0.5 mL) subcut QWEEK Tobacco use date assessed: 07/28/23 Dental Screening Dental Screen Date: 07/28/23 HPI persistent nausea, dizzyness,asthma HPI Details Obesity: Pt's current weight is 287lbs. Her BMI is 47.8. She has been taking semaglutide and paying out of pocket. She is tolerating this med well and losing weight. Pt reports feeling much better and her asthma is well-controlled. Will prescribe this. Denies fever, chills, and dizziness. [facility] Medical History Nausea Irritable bowel Headache syndrome Dyspepsia Surgical History Hx of emergency section No pertinent past surgical history Family History Father Medical history non-contributory Mother Medical history non-contributory Son No problems noted. Daughter No problems noted. 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 1. Little interest or pleasure in doing things: not at all 2. Feeling down, depressed, or hopeless: not at all 3. Trouble falling or staying asleep, or sleeping too much: not at all 4. Feeling tired or having little energy: not at all 5. Poor appetite or overeating: not at all 6. Feeling bad about yourself - or that you are a failure or have let yourself or your family down: not at all 7. Trouble concentrating on things, such as reading the newspaper or watching television: not at all 8. Moving or speaking so slowly that other people could have noticed. Or the opposite - being so fidgety or restless that you have been moving around a lot more than usual: not at all 9. Thoughts that you would be better off or of hurting yourself in some way: not at all Total score: 0 Source: Developed by Drs. Reese Gann, Rain Walton, Zac Gonzalez and colleagues, with an educational curry from [employer]. Thrive Questionnaire Date Thrive assessed: 07/28/23 I am a: Patient What is your living situation today?: I have a steady place to live Within the past 12 months, did the food you bought not last and you didn't have the money to get more?: Never true Within the past 12 months, did you worry whether your food would run out before you got money to buy more?: Never true Do you have trouble paying for medicines?: No Do you have trouble getting transportation to medical appointments?: No Do you have trouble paying your heating and electricity bill?: No Do you have trouble taking care of your child, family member or friend?: No Do you have trouble with day-to-day activities such as bathing, preparing meals, shopping, managing finances, etc.?: No Are you currently unemployed and looking for a job?: No Are you interested in more education?: No Please select the resources that you would like help with: None Currently or been in a relationship where the following occur: No concerns reported THRIVE Score: 0 AUDIT C Alcohol Use Questionnaire (AUDIT-C) 1. How often do you have a drink containing alcohol?: Never Total Score: 0 GOGO-7 AMB Questionnaire GOGO-7 Date GOGO - 7 assessed: 07/28/23 Feeling nervous, anxious, or on edge: 0 = Not at all Not being able to stop or control worryin = Not at all Worrying too much about different things: 0 = Not at all Trouble relaxin = Not at all Being so restless that it is hard to sit still: 0 = Not at all Becoming easily annoyed or irritable: 0 = Not at all Feeling afraid as if something awful might happen: 0 = Not at all Total GOGO-7 score (0-4 normal; 5-9 mild; 10-14 moderate; 15-21 severe): 0 Source: Developed by Drs. Reese Gann, Rain Walton, Zac Gonzalez and colleagues, with an educational curry from [employer]. Review of Systems Const Reports as per HPI Physical exam (Primary Care) Vital Signs: Last Vital Signs Pulse 82 02/01/24 14:16 BP 134/80 02/01/24 14:16 Pulse Ox 100 02/01/24 14:16 Oxygen Delivery Method Room Air 02/01/24 14:16 BMI result Body Mass Index 47.8 Tobacco/Smoking Status: Tobacco use Status Tobacco use date assessed 07/28/23 02/01/24 14:18 Patient Tobacco Use Status Former Tobacco user 02/01/24 14:18 e-Cigarette/Vaping Use Never Used 02/01/24 14:18 PHQ-9: PHQ-9 Score PHQ-9: Total score 0 02/01/24 14:24 Thrive Assessment: Date of Thrive Assessment Date Thrive assessed 07/28/23 02/01/24 14:18 Currently or been in a relationship where the following occur: No concerns reported Const General: cooperative Nutritional Appearance: obese morbidly obese Orientation/consciousness: patient oriented x3 Resp Effort & Inspection: normal respiratory effort Auscultation: clear to auscultation bilaterally Cardio Rate: regular rate Rhythm: regular rhythm Heart sounds: S1 normal heart sound present and S2 normal heart sound present Neuro General: patient oriented x3 Psych Appearance: grossly normal Mental Status: mental status grossly normal Speech and movement: Normal speech and movement present Affect: normal affect Attitude: cooperative Thought process: Normal thought process present Thought content: Normal thought content present Insight: Good insight present (Psych) Judgement: Good judgement present (Psych) Assessment and Plan Assessment & Plan (1) Obesity: Code(s): E66.9 - Obesity, unspecified Plan: Sending wegovy (2) Asthma: Code(s): J45.909 - Unspecified asthma, uncomplicated Plan: Doing well Plan The patient agreed to the use of a dental assistant medical assistant for this encounter. Scribed for NICOLA Jackson- by Ju Horn dental assistant medical assistant, on 02/01/2024 at 14:45 EST. Orders: Orders Complete Blood Count Auto Diff Today E66.9 - Obesity, unspecified Comprehensive Shaw. Panel Fast Today E66.9 - Obesity, unspecified TSH reflex Free T4 Today E66.9 - Obesity, unspecified UA CC w/rflx Micro + Cult Today E66.9 - Obesity, unspecified Lipid Panel Today E66.9 - Obesity, unspecified Medications: New semaglutide (weight loss) (Wegovy) administer weeks 1 through 4 of therapy 0.25 mg (0.5 mL) subcut QWEEK 2 mL 0RF Coding Level of Care Code Est Pt Level 3 (32792) Diagnoses Obesity E66.9 Asthma J45.909
== END 2024-02-01 15:44 | disposition home or self-care (01) ==
PROVIDERS: PCP Nurse Practitioner Family; Visit Provider Nurse Practitioner Family
DX: J45.909 Unspecified asthma, uncomplicated (principal); E66.9 Obesity, unspecified; Z68.42 Body mass index [BMI] 45.0-49.9, adult
CPT/HCPCS: 99213

== ENCOUNTER 2024-03-17 07:39 | Outpatient (REF) | payer OTHER, SELFPAY ==
[2024-03-17 10:01] LABS: Appearance Urine Clear; Color Urine Yellow; Glucose Urine UA Negative (Negative); Leukocyte Esterase Urine Negative (Negative); Nitrite Urine Negative (Negative); Specific Gravity - Urine 1.025 (1.005-1.025); UMIC TRIGGER UACC YES; Urine Blood Trace (Negative); Urine Ketones 15 mg/dL (Negative); Urine Protein Negative (Neg-Trace)
[2024-03-17 10:07] LABS: MANUAL DIFF FLAG NO
[2024-03-17 10:13] LABS: Basophils Percent Auto 0.3 % (0-2); Eosinophils Absolute Auto 0.1 X10*3/uL (0.0-0.4); Eosinophils Percent Auto 0.8 % (0-4); Hemoglobin 14.7 g/dl (12.0-16.0); Imm Gran Abs Auto 0.01 X10*3/uL (0.00-0.03); Imm Gran Pct Auto 0.2 % (0.0-0.4); Lymphocytes Absolute Auto 1.7 X10*3/uL (1.2-4.9); Mean Corpuscular HGB Conc 33.4 g/dl (31.0-35.0); Mean Corpuscular Hemoglobin 31.1 pg (27.0-33.0); Mean Platelet Volume 10.8 fL (9.4-12.3); Monocytes Absolute Auto 0.4 X10*3/uL (0.1-1.2); Monocytes Percent Auto 5.9 % (2-11); Neutrophils Absolute Auto 3.9 x10*3/uL (2.0-8.3); Neutrophils Percent Auto 64.8 % (45-73); Platelet Count 269 X10*3/uL (160-400); Red Blood Count 4.73 X10*6/uL (4.20-5.50); Red Cell Distribution Width 13.3 % (11.0-16.0)
[2024-03-17 10:13] LABS: Bacteria Urine None Seen (None Seen); Hyaline Casts Urine 0-2 /LPF (0-2); RBC Urine 0-2 /HPF (0-2); WBC Urine 0-5 /HPF (0-5)
[2024-03-17 10:34] LABS: Alanine Aminotransferase 18 U/L (0-31); Albumin Level 3.7 g/dL (3.5-5.0); Alkaline Phosphatase 33 U/L (39-117); Anion Gap 11 (12-20); Aspartate Amino Transferase 18 U/L (5-31); Bilirubin Total 0.7 mg/dL (0.0-1.0); Blood Urea Nitrogen 10 mg/dL (9-16); Calcium 9.4 mg/dL (8.4-10.2); Carbon Dioxide 27 mmol/L (22-29); Chloride 106 mmol/L (96-108); Cholesterol 156 mg/dL (<200); Estimated Glomerular Filt Rate > 60; Glucose Fasting 89 mg/dL (60-99); HDL Cholesterol 34 mg/dL (>40); LDL Cholesterol Calculated 108 mg/dL (<100); Sodium 140 mmol/L (135-145); Total Protein 6.1 g/dL (6.5-8.0); Triglycerides 73 mg/dL (<150)
[2024-03-17 10:54] LABS: TSH reflex Free T4 0.75 uIU/mL (0.32-4.0)
== END 2024-03-17 07:40 | disposition home or self-care (01) ==
LOC: HO.HMGCLDS 07:39
PROVIDERS: PCP Nurse Practitioner Family; Visit Provider Nurse Practitioner Family
DX: E66.9 Obesity, unspecified (principal)
CPT/HCPCS: 36415; 80053; 80061; 81001; 81003; 84443; 85025

== ENCOUNTER 2024-05-10 09:10 | Outpatient (AMB) | payer OTHER, SELFPAY ==
--- NOTE | 2024-05-10 07:05 | MHC.OFFVIS ---
Intake Visit Reasons: Med review // Berry White [phone] Allergies azithromycin [From ZITHROMAX] Allergy (Unknown, Verified 02/01/24 14:21) hives cefaclor [From CECLOR] Allergy (Unknown, Verified 02/01/24 14:21) UNKNOWN Medication List - Last Reconciled 05/10/24 by Neo Leung TILE SHADER- acetaminophen (Tylenol Extra Strength) 1,000 mg PO Q6H PRN albuterol sulfate 2.5 mg (3 mL) inhalation TID PRN albuterol sulfate 90 mcg/actuation (Ventolin HFA) 2 puffs inhalation Q6H PRN budesonide 90 mcg/actuation (Pulmicort Flexhaler) 1 inh inhalation Q12H cetirizine 10 mg PO DAILY cholecalciferol (vitamin D3) 50 mcg PO DAILY esomeprazole magnesium (Nexium) 40 mg PO DAILY PRN famotidine 20 mg PO BEDTIME fluticasone propionate 50 mcg/actuation 1 spray intranasal DAILY methylcellulose (laxative) (Citrucel) 500 mg PO DAILY nebulizers As directed with mask and tubing semaglutide (weight loss) 1.7 mg (0.75 mL) subcut QWEEK HPI HPI Med review // Berry White [phone]: Details: History of Present Illness The patient is a 43-year-old female presenting with a follow-up visit regarding her GLP-1 agonist use. Approximately five months ago, she commenced treatment with the GLP-1 receptor agonist Semaglutide (Ozempic), which resulted in a substantial weight reduction of 60 to 70 pounds. She has adhered strictly to medical guidance and also incorporated dietary changes and exercise regimens, yielding remarkable therapeutic benefits. Concurrently, she reports a significant improvement in her asthma since the initiation of this treatment. The patient states that effective management has greatly enhanced her overall well-being. She is aware of an impending change in her insurance plan, which will entail transitioning from Semaglutide to Zepbound starting May 24. Additionally, the patient recently noted microhematuria in her last urinalysis but denies any history of kidney stones or pelvic pain. No past urological issues have been reported, warranting further examination via urinalysis, urine culture, urine cytology, and potential urological referral. Review of Systems - Genitourinary: Reports microhematuria. Denies history of kidney stones, pelvic pain. Plan - Transition from Semaglutide Ozempic) to Zepbound: I will advise the patient to discontinue the current medication and initiate a lower dose of Zepbound one week later, aligned with insurance changes. - Microhematuria: A repeat urinalysis will be conducted alongside a urine culture and urine cytology. I will provide a referral to urology for further assessment and plan a CT urogram to investigate potential underlying causes. - Asthma management: Continuation of current asthma management, noting improvements with concurrent GLP-1 agonist therapy. Patient was informed and verbally consented to the use of an ambient scribe for clinic note documentation during this visit. Discussion Notes During the consultation, I reviewed with the patient the effective weight management achieved with Semaglutide and highlighted the significant improvement in her asthma. We discussed the upcoming insurance-driven transition to Zepbound and planned medication adjustments. I explained the rationale for further diagnostic evaluations following the noted microhematuria. I assured the patient that these assessments are precautionary measures to rule out underlying conditions. I emphasized the importance of adherence to the new regimen and the need for subsequent follow-up to evaluate the clinical outcomes of this transition. Patient Instructions - Discontinue current Ozempic medication and start Zepbound according to the new schedule. - Return to the clinic for urinalysis and follow-up tests. - Consult with urology as directed for further evaluation of microhematuria. - Continue current dietary and exercise regimen. - Monitor asthma symptoms and notify for any changes. [facility] Medical History Nausea Irritable bowel Headache syndrome Dyspepsia Surgical History Hx of emergency section No pertinent past surgical history Family History Father Medical history non-contributory Mother Medical history non-contributory Son No problems noted. Daughter No problems noted. 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 Cognitive needs: No Hearing needs: No Vision needs: No Telehealth Telehealth Telehealth Platform: [employer] Location of provider rendering services: practice address Location of patient: address on file Patient Identification confirmed using: Name, : Yes Telehealth method: video Patient verbally consented to treatment: Yes Patient verbally consented to billing insurance company: Yes Patient informed of any privacy concerns related to visit: Yes Minutes spent on Phone/Video with Pt.: 12 Assessment & Plan Assessment & Plan (1) Microscopic hematuria: Code(s): R31.29 - Other microscopic hematuria Category: Medical (2) Morbid obesity: Code(s): E66.01 - Morbid (severe) obesity due to excess calories Category: Medical Plan . Orders: Orders UA CC w/rflx Micro + Cult Today R31.29 - Other microscopic hematuria Urine Cytology Today R31.29 - Other microscopic hematuria CT urogram Today R31.29 - Other microscopic hematuria Urine Culture Today R31.29 - Other microscopic hematuria Referrals Urology Referral R31.29 - Other microscopic hematuria Medications: New tirzepatide (weight loss) (Zepbound) for 4 weeks 2.5 mg (0.5 mL) subcut QWEEK 2 mL 0RF Coding Level of Care Code Tele Est Pt Level 3 (62773) Diagnoses Microscopic hematuria R31.29 Morbid obesity E66.01
== END 2024-05-10 09:11 | disposition home or self-care (01) ==
LOC: HO.HMCC 09:10
PROVIDERS: PCP Nurse Practitioner Family; Visit Provider Nurse Practitioner Family
DX: R31.29 Other microscopic hematuria (principal); E66.01 Morbid (severe) obesity due to excess calories

== ENCOUNTER → 2024-05-10 09:10 | Outpatient (BNVA) | payer OTHER, SELFPAY | PROVIDERS: PCP Nurse Practitioner Family; Visit Provider Nurse Practitioner Family | DX: R31.29 Other microscopic hematuria (principal); E66.01 Morbid (severe) obesity due to excess calories ==

== ENCOUNTER → 2024-05-12 14:21 | Outpatient (BNVA) | payer OTHER, SELFPAY | PROVIDERS: PCP Nurse Practitioner Family; Visit Provider Nurse Practitioner Family ==

== ENCOUNTER 2024-05-29 15:56 | Outpatient (AMB) | payer OTHER, SELFPAY ==
[2024-05-29 15:57] VITALS: BP 92/48; PULSE 70; O2SAT 100; BMI 40.6
--- NOTE | 2024-05-29 15:57 | A.OFFVIS_ITS ---
Vital Signs 05/29/24 15:57 Height 5 ft 5 in Weight 243 lb 13.3 oz BMI 40.6 BP 92/48 L Blood Pressure Location Rt brachial Position Sitting Pulse 70 Pulse Source Pulse Oximeter Pulse Oximetry (%) 100 Oxygen Delivery Method Room Air Intake Visit Reasons: f/u dyspepsia Intake Note: ESTABLISHED PATIENT Reason; 1 YR FUV. Dyspepsia. Changes/concerns? Pt states that they were originally kieran to have egd in October 2023 but had cancelled due to illness. Have never rebooked. Pt still has never had egd or colo to date. Allergies azithromycin [From ZITHROMAX] Allergy (Unknown, Verified 05/29/24 16:00) hives cefaclor [From CECLOR] Allergy (Unknown, Verified 05/29/24 16:00) UNKNOWN HPI HPI f/u dyspepsia: Details: LAST VISIT: Irritable bowel Dyspepsia GERD (gastroesophageal reflux disease) Plan Patient reports feeling occasionally nauseous. Discussed with patient the importance of emptying her bowels completely. Continue senna or Colace. Patient was also advised to try MiraLax if those 2 are not working. Patient can start taking Nexium in the morning as omeprazole has not been working for her. Encouraged patient to be more strict about diet. Trying to lose weight. Try to exercise. Patient was also encouraged to get her blood work done as well as stool studies. Patient will be sent for upper endoscopy to rule out gastritis, esophagitis, Zapien's, gastric or peptic ulcers, H pylori. I will see her after the procedure. Patient is agreeable to this plan and verbalizes understanding of instructions. She was given the opportunity to ask questions and all questions answered. Patient does have a history of asthma. No cardiac or respiratory symptoms. No issues with anesthesia in the past. Not on any anticoagulation therapy. Medications New ondansetron 4 mg PO Q8H PRN 20 tabs 0RF nausea and vomiting R11.0 esomeprazole magnesium (Nexium) 40 mg PO DAILY PRN 90 caps 5RF nausea K21.9 Discontinued omeprazole Discontinued Reason: Doctor's Order 40 mg PO DAILY 90 days 90 caps 1RF K58.9, R10.13 TODAY'S VISIT Patient is here today for follow-up. Patient reports that she had to cancel endoscopy as she was sick. Patient was put on GLP 1, however insurance was not covering and patient was switched to Zepbound. Patient reports that she has been doing quite well. Patient has lost over 60 lb. Patient reports that she has been feeling much better. She takes Nexium as needed. Denies any dyspepsia, dysphagia or odynophagia. Denies melena, hematochezia, unintentional weight loss or ribbon like stools. Patient denies any GI concerning symptoms. [facility] Medical History Nausea Irritable bowel Headache syndrome Dyspepsia Surgical History Hx of emergency section No pertinent past surgical history Family History Father Medical history non-contributory Mother Medical history non-contributory Son No problems noted. Daughter No problems noted. 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 Cognitive needs: No Hearing needs: No Vision needs: No Review of Systems Const Denies weight gain and Denies weight loss ENT Reports no additional complaints, Denies dysphagia and Denies odynophagia Card Reports no additional complaints Resp Reports no additional complaints GI Denies abdominal pain, Denies belching, Denies melena, Denies bloating, Denies change in bowel habits, Denies dysphagia, Denies excessive flatus, Denies dyspepsia, Denies heartburn, Denies diarrhea, Denies loose stools, Denies n ausea, Denies odynophagia and Denies vomiting Musc Reports no additional complaints Neuro Reports no additional complaints Psych Reports no additional complaints Endo Reports no additional complaints Physical Exam Vital Signs: Last Vital Signs Pulse 70 05/29/24 15:57 BP 92/48 L 05/29/24 15:57 Pulse Ox 100 05/29/24 15:57 Oxygen Delivery Method Room Air 05/29/24 15:57 BMI result Body Mass Index 40.6 Const General: no acute distress Nutritional Appearance: obese Orientation/consciousness: patient oriented x3 Resp Effort & Inspection: normal respiratory effort, able to speak in complete sentences, no tracheal deviation and symmetric chest movement Auscultation: clear to auscultation bilaterally Cardio Rate: regular rate GI Inspection: Yes normal to inspection, No distended and Yes obesity Palpation (GI): Soft to palpation, not firm, nontender and No hepatosplenomegaly present Auscultation: normal bowel sounds General: Yes no CVA tenderness Back/Spine/Pelvis Back: no CVA tenderness Skin General skin exam: elasticity normal, turgor normal and dry skin Neuro General: patient oriented x3 Psych Appearance: grossly normal Mental Status: mental status grossly normal Assessment & Plan Assessment & Plan (1) Irritable bowel: Code(s): K58.9 - Irritable bowel syndrome, unspecified Category: Medical Qualifiers: Irritable bowel syndrome type: with both diarrhea and constipation Qualified Code(s): K58.2 - Mixed irritable bowel syndrome (2) Dyspepsia: Code(s): R10.13 - Epigastric pain Category: Medical (3) GERD (gastroesophageal reflux disease): Code(s): K21.9 - Gastro-esophageal reflux disease without esophagitis Qualifiers: Esophagitis presence: esophagitis presence not specified Qualified Code(s): K21.9 - Gastro-esophageal reflux disease without esophagitis (4) Postprandial abdominal bloating: Code(s): R14.0 - Abdominal distension (gaseous) Plan Patient would like to hold off on EGD at this time. She is only using Nexium as needed. Continue avoiding dietary triggers. Avoid late night snacking. Staying upright for minimum 3 hours after meals discussed with patient. Patient will follow-up in 1 year. She will call our office if she will have any GI concerning symptoms. She is agreeable to this plan and verbalizes understanding of instructions. She was given the opportunity to ask questions and all questions answered. Thank you for allowing me to participate in her care Coding Level of Care Code Est Pt Level 3 (60039) Diagnoses Irritable bowel syndrome with both constipation and diarrhea K58.2 Irritable bowel syndrome type: with both diarrhea and constipation Dyspepsia R10.13 Gastroesophageal reflux disease, unspecified whether esophagitis present K21.9 Esophagitis presence: esophagitis presence not specified Postprandial abdominal bloating R14.0 Time Spent (min) 25 Comment 15 minutes spent with patient and additional 10 minutes spent reviewing her records
== END 2024-05-29 16:17 | disposition home or self-care (01) ==
PROVIDERS: PCP Nurse Practitioner Family; Visit Provider Nurse Practitioner Family
DX: K58.2 Mixed irritable bowel syndrome (principal); R10.13 Epigastric pain; K21.9 Gastro-esophageal reflux disease without esophagitis; R14.0 Abdominal distension (gaseous)
CPT/HCPCS: 99213

== ENCOUNTER → 2024-05-29 15:56 | Outpatient (BNVA) | payer OTHER, SELFPAY | PROVIDERS: PCP Nurse Practitioner Family; Visit Provider Nurse Practitioner Family | DX: K58.2 Mixed irritable bowel syndrome (principal); K21.9 Gastro-esophageal reflux disease without esophagitis; R10.13 Epigastric pain; R14.0 Abdominal distension (gaseous) | CPT/HCPCS: 99212 ==

== ENCOUNTER 2024-06-26 11:08 | Observation (INO) | payer OTHER, SELFPAY ==
[2024-06-26] VITALS (8 sets, daily range): BP systolic 83–116; BP diastolic 41–79; PULSE 90–102; RESP 15–22; TEMP 36.4–37.6; O2SAT 95–98; BMI 34.3
--- NOTE | 2024-06-26 | ECG_ITS ---
Test Reason : CANT BREATHE Blood Pressure : */* mmHG Vent. Rate : 104 BPM Atrial Rate : 104 BPM P-R Int : 118 ms QRS Dur : 82 ms QT Int : 328 ms P-R-T Axes : 51 68 -18 degrees QTcB Int : [address] & T wave abnormality, consider inferior ischemia Abnormal ECG When compared with ECG of 02-Apr-2021 08:54, T wave amplitude has decreased in Anterior leads Referred By: Generic ED Physician Electronically Signed By: Sergey Green
--- NOTE | ~2024-06-26 | XR_ITS ---
CLINICAL HISTORY: sob 1 view chest x-ray Comparison: CR - CHEST 2 VIEWS [id number] - 10/22/16 11:53 EDT Findings: No consolidation or effusion. Prominent cardiac silhouette. No acute fracture. IMPRESSION: 1. No acute findings. This document has been electronically signed by: Dedrick Jean MD on 06/26/2024 20:41:58
--- NOTE | 2024-06-26 11:38 | ED_ITS ---
HPI - Chest Pain General Chief Complaint: Dyspnea Stated Complaint: Chest pain diff breathing Time Seen by Provider: 06/26/24 16:53 Related Data Home Medications ?Medication ?Instructions ?Recorded ?Confirmed acetaminophen 500 mg tablet 1,000 mg PO Q6H PRN 03/17/22 05/10/24 (Tylenol Extra Strength) Previous Rx's ?Medication ?Instructions ?Recorded fluticasone propionate 50 1 spray intranasal DAILY #16 mL 10/14/20 mcg/actuation nasal spray,suspension methylcellulose (laxative) 500 mg 500 mg PO DAILY #90 tabs 09/21/22 tablet (Citrucel) budesonide 90 mcg/actuation breath 1 inh inhalation Q12H #1 ea 09/30/23 activated powder inhaler (Pulmicort Flexhaler) nebulizers #1 ea 10/04/23 albuterol sulfate 2.5 mg/3 mL 2.5 mg (3 mL) inhalation TID PRN 11/14/23 (0.083 %) solution for nebulization shortness of breath or wheezing #75 mL cholecalciferol (vitamin D3) 50 50 mcg PO DAILY #90 caps 01/24/24 mcg (2,000 unit) capsule esomeprazole magnesium 40 mg 40 mg PO DAILY PRN nausea #90 caps 03/03/24 capsule,delayed release (Nexium) cetirizine 10 mg tablet 10 mg PO DAILY #90 tabs 03/09/24 famotidine 20 mg tablet 20 mg PO BEDTIME #90 tabs 05/02/24 tirzepatide (weight loss) 5 mg/0.5 5 mg (0.5 mL) subcut QWEEK 30 days 06/05/24 mL subcutaneous pen injector #2.5 mL albuterol sulfate 90 mcg/actuation 2 puff inhalation Q6H PRN 06/20/24 aerosol inhaler (Ventolin HFA) shortness of breath or wheezing #8.5 grams albuterol sulfate 2.5 mg/3 mL 2.5 mg (3 mL) inhalation TID PRN 06/26/24 (0.083 %) solution for nebulization shortness of breath #75 mL prednisone 20 mg tablet 40 mg (2 x 20 mg) PO DAILY #10 tabs 06/26/24 Allergies Allergy/AdvReac Type Severity Reaction Status Date / Time azithromycin [From ZITHROMAX] Allergy Unknown hives Verified 06/26/24 11:41 cefaclor [From CECLOR] Allergy Unknown UNKNOWN Verified 06/26/24 11:41 [facility] Past Medical History Medical History Nausea Irritable bowel Headache syndrome Dyspepsia Surgical History Hx of emergency section No pertinent past surgical history Family History Family History Father Medical history non-contributory Mother Medical history non-contributory Son No problems noted. Daughter No problems noted. 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 Full HPI, ROS and PE to be performed by primary ED provider. 43 yo F w/pmhx asthma, obesity, IBS presenting to the ED c/o URI sx x yesterday w/SOB & chest tightness x this morning. took tx at home w/o relief. PE: coughing, +diffuse exp wheeze, talking in complete sentences. good air movement Plan: EKG, labs, CXR, ED bronch protocol Medications Administered Discontinued Medications Generic Name Dose Route Start Last Admin Trade Name Freq PRN Reason Stop Dose Admin Acetaminophen 650 mg 06/26/24 17:51 06/26/24 17:58 Acetaminophen 325 Mg Tablet PO 06/26/24 17:52 650 mg ONCE ONE Administration Albuterol Sulfate 5 mg/ 0 mg 06/26/24 11:58 06/26/24 12:03 Albuterol/Ipratropium 3 ml INHALE 06/26/24 11:59 1 each ONCE ONE Administration Albuterol Sulfate 2.5 mg/ 0 mg 06/26/24 17:30 06/26/24 17:31 Albuterol/Ipratropium 3 ml INHALE 06/26/24 17:31 1 dose ONCE ONE Administration Sodium Chloride 1,000 mls @ 999 mls/hr 06/26/24 20:45 06/26/24 23:09 Ns IV 06/26/24 21:45 Infused .Q1H1M MIMI Infusion Methylprednisolone Sodium Succinate 125 mg 06/26/24 17:26 06/26/24 17:45 Methylprednisolone Sod Succ 125 Mg/2 Ml Vial IVPUSH 06/26/24 17:27 125 mg ONCE ONE Administration Medical Decision Making Lab Data 06/26/24 14:44 06/26/24 14:45 Labs: Lab Results 06/26/24 06/26/24 Range/Units 14:44 14:45 WBC 7.6 (4.8-10.8) X10*3/uL RBC 4.65 (4.20-5.50) X10*6/uL Hgb 14.6 (12.0-16.0) g/dl Hct 41.9 (37.0-47.0) % MCV 90.1 (80.0-98.0) fL MCH 31.4 (27.0-33.0) pg MCHC 34.8 (31.0-35.0) g/dl RDW 13.7 (11.0-16.0) % Plt Count 250 (160-400) X10*3/uL MPV 10.0 (9.4-12.3) fL Immature Gran % (Auto) 0.1 (0.0-0.4) % Neut % (Auto) 79.7 H (45-73) % Lymph % (Auto) 12.1 L (20-40) % [place] % (Auto) 7.8 (2-11) % Eos % (Auto) 0.0 (0-4) % Baso % (Auto) 0.3 (0-2) % Lymph # (Auto) 0.9 L (1.2-4.9) X10*3/uL [place] # (Auto) 0.6 (0.1-1.2) X10*3/uL Eos # (Auto) 0.0 (0.0-0.4) X10*3/uL Baso # (Auto) 0.0 (0.0-0.2) X10*3/uL Abs Immat Gran (auto) 0.01 (0.00-0.03) X10*3/uL Absolute Neuts (auto) 6.1 (2.0-8.3) x10*3/uL Absolute Nucleated RBC 0.000 (0.0-0.012) X10*3/uL Nucleated RBC % (auto) 0.0 (0.0-0.2) /100WBC PT 13.2 H (10.9-12.4) SEC INR 1.1 (0.9-1.1) Sodium 139 (135-145) mmol/L Potassium 3.5 (3.3-5.1) mmol/L Chloride 105 (96-108) mmol/L Carbon Dioxide 23 (22-29) mmol/L Anion Gap 15 (12-20) BUN 9 (9-16) mg/dL Creatinine 0.63 (0.5-1.4) mg/dL Estim Creat Clear Calc 126.9 Estimated GFR > 60 Random Glucose 85 (60-115) mg/dL Calcium 9.0 (8.4-10.2) mg/dL Magnesium 2.1 (1.6-2.6) mg/dL Total Bilirubin 0.5 (0.0-1.0) mg/dL Direct Bilirubin 0.1 (0.0-0.5) mg/dL AST 19 (5-31) U/L ALT 14 (0-31) U/L Alkaline Phosphatase 42 (39-117) U/L Troponin I High Sens < 2.7 (<3.5-17.0) ng/L B-Natriuretic Peptide 21 (<100) pg/mL Total Protein 7.2 (6.5-8.0) g/dL Albumin 4.1 (3.5-5.0) g/dL Influenza Type A (PCR) NEGATIVE (Negative) Influenza Type B (PCR) NEGATIVE (Negative) RSV RNA Qual (PCR) NEGATIVE (Negative) SARS-CoV-2 RNA (RT-PCR) NEGATIVE (Negative) Discharge Plan Discharge Clinical Impression: Asthma Patient Disposition: Home, Self-Care Instructions: Asthma (ED), Upper Respiratory Infection (ED) Prescriptions: New prednisone 20 mg tablet 40 mg PO DAILY Qty: 10 0RF albuterol sulfate 2.5 mg /3 mL (0.083 %) solution for nebulization 2.5 mg inhalation TID PRN (Reason: shortness of breath) Qty: 75 0RF No Action fluticasone propionate 50 mcg/actuation spray,suspension 1 spray intranasal DAILY Qty: 16 2RF Pulmicort Flexhaler 90 mcg/actuation aerosol powdr breath activated 1 inh inhalation Q12H Qty: 1 3RF (DME) nebulizers Misc See Rx Instructions .Route Qty: 1 0RF Rx Instructions: As directed with mask and tubing albuterol sulfate 2.5 mg /3 mL (0.083 %) solution for nebulization 2.5 mg inhalation TID PRN (Reason: shortness of breath or wheezing) Qty: 75 0RF cholecalciferol (vitamin D3) 50 mcg (2,000 unit) capsule 50 mcg PO DAILY Qty: 90 3RF esomeprazole magnesium [Nexium] 40 mg capsule,delayed release(DR/EC) 40 mg PO DAILY PRN (Reason: nausea) Qty: 90 5RF cetirizine 10 mg tablet 10 mg PO DAILY Qty: 90 1RF famotidine 20 mg tablet 20 mg PO BEDTIME Qty: 90 1RF tirzepatide (weight loss) 5 mg/0.5 mL pen injector 5 mg subcut QWEEK 30 Days Qty: 2.5 0RF Rx Instructions: for 4 weeks albuterol sulfate [Ventolin HFA] 90 mcg/actuation HFA aerosol inhaler 2 puff inhalation Q6H PRN (Reason: shortness of breath or wheezing) Qty: 8.5 2RF acetaminophen [Tylenol Extra Strength] 500 mg tablet 1,000 mg PO Q6H PRN Citrucel 500 mg tablet 500 mg PO DAILY Qty: 90 2RF Rx Instructions: take it with full glass of water Referrals: Neo Leung, GROUP SALES REPRESENTATIVE-BC [Primary Care Provider] - 06/28/24 Print Language: Divehi
[2024-06-26] MEDS: Albuterol Sulfate 5 MG, Albuterol/Iprat 2.5/0.5MG 3 ML 3 ML INHALE (12:03)
[2024-06-26 14:48] LABS: MANUAL DIFF FLAG NO
[2024-06-26 14:50] LABS: Basophils Percent Auto 0.3 % (0-2); Hematocrit 41.9 % (37.0-47.0); Hemoglobin 14.6 g/dl (12.0-16.0); Imm Gran Abs Auto 0.01 X10*3/uL (0.00-0.03); Imm Gran Pct Auto 0.1 % (0.0-0.4); Lymphocytes Absolute Auto 0.9 X10*3/uL (1.2-4.9); Lymphocytes Percent Auto 12.1 % (20-40); Mean Corpuscular HGB Conc 34.8 g/dl (31.0-35.0); Mean Corpuscular Hemoglobin 31.4 pg (27.0-33.0); Mean Corpuscular Volume 90.1 fL (80.0-98.0); Monocytes Absolute Auto 0.6 X10*3/uL (0.1-1.2); Monocytes Percent Auto 7.8 % (2-11); Neutrophils Absolute Auto 6.1 x10*3/uL (2.0-8.3); Neutrophils Percent Auto 79.7 % (45-73); Platelet Count 250 X10*3/uL (160-400); Red Blood Count 4.65 X10*6/uL (4.20-5.50); Red Cell Distribution Width 13.7 % (11.0-16.0); White Blood Count 7.6 X10*3/uL (4.8-10.8)
[2024-06-26 15:00] LABS: INTERNATIONAL NORM RATIO 1.1 (0.9-1.1); Prothrombin Time 13.2 SEC (10.9-12.4)
[2024-06-26 15:13] LABS: Alanine Aminotransferase 14 U/L (0-31); Albumin Level 4.1 g/dL (3.5-5.0); Anion Gap 15 (12-20); Aspartate Amino Transferase 19 U/L (5-31); Bilirubin Direct 0.1 mg/dL (0.0-0.5); Bilirubin Total 0.5 mg/dL (0.0-1.0); Blood Urea Nitrogen 9 mg/dL (9-16); Carbon Dioxide 23 mmol/L (22-29); Chloride 105 mmol/L (96-108); Creatinine Clr Calc Pharmacy 126.9; Estimated Glomerular Filt Rate > 60; Glucose Random 85 mg/dL (60-115); Magnesium 2.1 mg/dL (1.6-2.6); Potassium 3.5 mmol/L (3.3-5.1); Sodium 139 mmol/L (135-145); Total Protein 7.2 g/dL (6.5-8.0)
[2024-06-26 15:14] LABS: B Type Natriuretic Peptide 21 pg/mL (<100)
[2024-06-26 15:17] LABS: Troponin-I High Sensitivity < 2.7 ng/L (<3.5-17.0)
[2024-06-26 15:25] LABS: Alkaline Phosphatase 42 U/L (39-117)
[2024-06-26 15:29] LABS: Influenza A PCR NEGATIVE (Negative); Influenza B PCR NEGATIVE (Negative); Resp Syncy Virus RNA Qual PCR NEGATIVE (Negative); SARS COV2 PCR INHOUSE NEGATIVE (Negative)
--- NOTE | 2024-06-26 17:27 | ED.SOB ---
HPI - SOB/Dyspnea General Chief Complaint: Dyspnea Stated Complaint: Chest pain diff breathing Time Seen by Provider: 06/26/24 16:53 History of Present Illness HPI Narrative: Patient is a 43-year-old female presents today with having coughing congestion upper respiratory symptoms has been ongoing for the last 2-3 days. Coughing nonproductive patient has a history of asthma never been intubated in the past last time she was admitted to the hospitalist when she was 19 years old. Patient does smoke some marijuana but no cigarettes. She is from home. No history of congestive heart failure no leg swelling. No heart issue. Related Data Home Medications ?Medication ?Instructions ?Recorded ?Confirmed acetaminophen 500 mg tablet 1,000 mg PO Q6H PRN 03/17/22 05/10/24 (Tylenol Extra Strength) Previous Rx's ?Medication ?Instructions ?Recorded fluticasone propionate 50 1 spray intranasal DAILY #16 mL 10/14/20 mcg/actuation nasal spray,suspension methylcellulose (laxative) 500 mg 500 mg PO DAILY #90 tabs 09/21/22 tablet (Citrucel) budesonide 90 mcg/actuation breath 1 inh inhalation Q12H #1 ea 09/30/23 activated powder inhaler (Pulmicort Flexhaler) nebulizers #1 ea 10/04/23 albuterol sulfate 2.5 mg/3 mL 2.5 mg (3 mL) inhalation TID PRN 11/14/23 (0.083 %) solution for nebulization shortness of breath or wheezing #75 mL cholecalciferol (vitamin D3) 50 50 mcg PO DAILY #90 caps 01/24/24 mcg (2,000 unit) capsule esomeprazole magnesium 40 mg 40 mg PO DAILY PRN nausea #90 caps 03/03/24 capsule,delayed release (Nexium) cetirizine 10 mg tablet 10 mg PO DAILY #90 tabs 03/09/24 famotidine 20 mg tablet 20 mg PO BEDTIME #90 tabs 05/02/24 tirzepatide (weight loss) 5 mg/0.5 5 mg (0.5 mL) subcut QWEEK 30 days 06/05/24 mL subcutaneous pen injector #2.5 mL albuterol sulfate 90 mcg/actuation 2 puff inhalation Q6H PRN 06/20/24 aerosol inhaler (Ventolin HFA) shortness of breath or wheezing #8.5 grams albuterol sulfate 2.5 mg/3 mL 2.5 mg (3 mL) inhalation TID PRN 06/26/24 (0.083 %) solution for nebulization shortness of breath #75 mL prednisone 20 mg tablet 40 mg (2 x 20 mg) PO DAILY #10 tabs 06/26/24 Allergies Allergy/AdvReac Type Severity Reaction Status Date / Time azithromycin [From ZITHROMAX] Allergy Unknown hives Verified 06/26/24 11:41 cefaclor [From CECLOR] Allergy Unknown UNKNOWN Verified 06/26/24 11:41 Review of Systems Review of Systems: Positive coughing congestion upper respiratory symptoms Yes all other systems are reviewed and are negative [facility] Past Medical History Attestation statement: The following information was validated with the patient. Medical History Nausea Irritable bowel Headache syndrome Dyspepsia Surgical History Hx of emergency section No pertinent past surgical history Family History Family History Father Medical history non-contributory Mother Medical history non-contributory Son No problems noted. Daughter No problems noted. 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 Oriented X3. No acute distress. Eyes: Pupils equal, round and reactive to light. ENT: Pharynx normal. Neck: Normal inspection. Neck supple. No lymph nodes noted. No crepitus CVS: Normal heart rate and rhythm. Pulses normal. Normal S1 and S2 Respiratory: No respiratory distress. Breath sounds normal. Mild wheezing noted bilaterally. Abdomen: Soft and nontender. No rigidity. No distention. good BS x4 Skin: Skin warm and dry. Normal skin color. Normal skin turgor. Extremities: No lower extremity edema. Neurovascular intact to all extremities. No Lacerations. No Rash Neuro: Oriented X 3. No motor deficit. No sensory deficit. Moving all extermities. No slurred speech Medications Administered Discontinued Medications Generic Name Dose Route Start Last Admin Trade Name Freq PRN Reason Stop Dose Admin Acetaminophen 650 mg 06/26/24 17:51 06/26/24 17:58 Acetaminophen 325 Mg Tablet PO 06/26/24 17:52 650 mg ONCE ONE Administration Albuterol Sulfate 5 mg/ 0 mg 06/26/24 11:58 06/26/24 12:03 Albuterol/Ipratropium 3 ml INHALE 06/26/24 11:59 1 each ONCE ONE Administration Albuterol Sulfate 2.5 mg/ 0 mg 06/26/24 17:30 06/26/24 17:31 Albuterol/Ipratropium 3 ml INHALE 06/26/24 17:31 1 dose ONCE ONE Administration Sodium Chloride 1,000 mls @ 999 mls/hr 06/26/24 20:45 06/26/24 20:34 Ns IV 06/26/24 21:45 999 mls/hr .Q1H1M MIMI Administration Methylprednisolone Sodium Succinate 125 mg 06/26/24 17:26 06/26/24 17:45 Methylprednisolone Sod Succ 125 Mg/2 Ml Vial IVPUSH 06/26/24 17:27 125 mg ONCE ONE Administration Medical Decision Making Lab Data 06/26/24 14:44 06/26/24 14:45 Labs: Lab Results 06/26/24 06/26/24 Range/Units 14:44 14:45 WBC 7.6 (4.8-10.8) X10*3/uL RBC 4.65 (4.20-5.50) X10*6/uL Hgb 14.6 (12.0-16.0) g/dl Hct 41.9 (37.0-47.0) % MCV 90.1 (80.0-98.0) fL MCH 31.4 (27.0-33.0) pg MCHC 34.8 (31.0-35.0) g/dl RDW 13.7 (11.0-16.0) % Plt Count 250 (160-400) X10*3/uL MPV 10.0 (9.4-12.3) fL Immature Gran % (Auto) 0.1 (0.0-0.4) % Neut % (Auto) 79.7 H (45-73) % Lymph % (Auto) 12.1 L (20-40) % [place] % (Auto) 7.8 (2-11) % Eos % (Auto) 0.0 (0-4) % Baso % (Auto) 0.3 (0-2) % Lymph # (Auto) 0.9 L (1.2-4.9) X10*3/uL [place] # (Auto) 0.6 (0.1-1.2) X10*3/uL Eos # (Auto) 0.0 (0.0-0.4) X10*3/uL Baso # (Auto) 0.0 (0.0-0.2) X10*3/uL Abs Immat Gran (auto) 0.01 (0.00-0.03) X10*3/uL Absolute Neuts (auto) 6.1 (2.0-8.3) x10*3/uL Absolute Nucleated RBC 0.000 (0.0-0.012) X10*3/uL Nucleated RBC % (auto) 0.0 (0.0-0.2) /100WBC PT 13.2 H (10.9-12.4) SEC INR 1.1 (0.9-1.1) Sodium 139 (135-145) mmol/L Potassium 3.5 (3.3-5.1) mmol/L Chloride 105 (96-108) mmol/L Carbon Dioxide 23 (22-29) mmol/L Anion Gap 15 (12-20) BUN 9 (9-16) mg/dL Creatinine 0.63 (0.5-1.4) mg/dL Estim Creat Clear Calc 126.9 Estimated GFR > 60 Random Glucose 85 (60-115) mg/dL Calcium 9.0 (8.4-10.2) mg/dL Magnesium 2.1 (1.6-2.6) mg/dL Total Bilirubin 0.5 (0.0-1.0) mg/dL Direct Bilirubin 0.1 (0.0-0.5) mg/dL AST 19 (5-31) U/L ALT 14 (0-31) U/L Alkaline Phosphatase 42 (39-117) U/L Troponin I High Sens < 2.7 (<3.5-17.0) ng/L B-Natriuretic Peptide 21 (<100) pg/mL Total Protein 7.2 (6.5-8.0) g/dL Albumin 4.1 (3.5-5.0) g/dL Influenza Type A (PCR) NEGATIVE (Negative) Influenza Type B (PCR) NEGATIVE (Negative) RSV RNA Qual (PCR) NEGATIVE (Negative) SARS-CoV-2 RNA (RT-PCR) NEGATIVE (Negative) Discharge Plan Discharge Clinical Impression: Asthma Patient Disposition: Home, Self-Care Instructions: Asthma (ED), Upper Respiratory Infection (ED) Prescriptions: New prednisone 20 mg tablet 40 mg PO DAILY Qty: 10 0RF albuterol sulfate 2.5 mg /3 mL (0.083 %) solution for nebulization 2.5 mg inhalation TID PRN (Reason: shortness of breath) Qty: 75 0RF No Action fluticasone propionate 50 mcg/actuation spray,suspension 1 spray intranasal DAILY Qty: 16 2RF Pulmicort Flexhaler 90 mcg/actuation aerosol powdr breath activated 1 inh inhalation Q12H Qty: 1 3RF (DME) nebulizers Misc See Rx Instructions .Route Qty: 1 0RF Rx Instructions: As directed with mask and tubing albuterol sulfate 2.5 mg /3 mL (0.083 %) solution for nebulization 2.5 mg inhalation TID PRN (Reason: shortness of breath or wheezing) Qty: 75 0RF cholecalciferol (vitamin D3) 50 mcg (2,000 unit) capsule 50 mcg PO DAILY Qty: 90 3RF esomeprazole magnesium [Nexium] 40 mg capsule,delayed release(DR/EC) 40 mg PO DAILY PRN (Reason: nausea) Qty: 90 5RF cetirizine 10 mg tablet 10 mg PO DAILY Qty: 90 1RF famotidine 20 mg tablet 20 mg PO BEDTIME Qty: 90 1RF tirzepatide (weight loss) 5 mg/0.5 mL pen injector 5 mg subcut QWEEK 30 Days Qty: 2.5 0RF Rx Instructions: for 4 weeks albuterol sulfate [Ventolin HFA] 90 mcg/actuation HFA aerosol inhaler 2 puff inhalation Q6H PRN (Reason: shortness of breath or wheezing) Qty: 8.5 2RF acetaminophen [Tylenol Extra Strength] 500 mg tablet 1,000 mg PO Q6H PRN Citrucel 500 mg tablet 500 mg PO DAILY Qty: 90 2RF Rx Instructions: take it with full glass of water Referrals: Neo Leung, INFORMATION SECURITY ANALYST-BC [Primary Care Provider] - 06/28/24 Print Language: Fijian
--- OUTSIDE RECORDS SUMMARY | 2024-06-26 17:27 | XMS_ITS | Data Portability ---
Author Organization [facility], [address] Address [address] [place] [id number] Care Team Providers Care Associate Professor Of Philosophy Name Role Phone EVERTCIERRA HUGH Primary Care Provider [phone] Assessment No assessment recorded. Plan of Treatment Reminders Order Date Submit Date Provider Last Modified By Organization Details Last Modified Time Details Appointments None recorded. Lab None recorded. Referral None recorded. Procedures None recorded. Surgeries None recorded. Imaging None recorded. Medication Orders albuterol sulfate 2.5 mg/3 mL (0.083 %) solution for nebulizatio n 2021 022 [email or web address] Not available 3 08:01:06 ipratropium bromide 0.02 % solution for inhalation 2021 022 [email or web address] [email or web address] Not available 3 08:01:06 benzonatate 200 mg capsule 2021 022 [facility]2339, [address] [place], [address], 2 14:51:33 prednisone 20 mg tablet 2021 023 [facility] #2339, [address] [place], [address], 3 10:07:32 albuterol sulfate HFA 90 mcg/actuati on aerosol inhaler 2021 022 [facility] #2339, [address] [place], [address], 2 14:51:35 Allergy Relief (fluticason e) 50 mcg/actuati on nasal spray,suspe nsion 2021 022 [facility] [address] [place] [address], [address], 2 14:51:35 albuterol sulfate 2.5 mg/3 mL (0.083 %) solution for nebulizatio n 2021 022 [facility], [address] [place] [address], [place], [address], 2 15:28:36 doxycycline hyclate 100 mg capsule 2022 023 [facility] [address] [place] [address], [address], 3 10:30:46 benzonatate 200 mg capsule 2022 023 [facility] [address] [place] [address], [address], 3 10:30:46 Flovent HFA 220 mcg/actuati on aerosol inhaler 2022 023 [facility] [address] [place] [address], [address], 3 10:30:46 prednisone 50 mg tablet 2022 023 [facility] [address] [place] [address], [address], 3 10:30:46 Patient TargetsNo targets recorded. Patient Instructions Encounter Date Encounter Id Patient Instructions Last Modified By Organization Details Last Modified Time 05/23/2022 [id number] cough: care instructions billy Not available 05/23/2022 14:51:27 peak flow* DILLON Not available 05/23 16:29:50 Patient instruct ed on worsening signs and symptoms that would require further evaluation by ED or PCP such as fever of 101.0 or greater, congestion accompanied with coughing, vomiting, diarrhea, abdominal pain, decreased oral intake, lethargy, or other new symptom(s) experienced not discussed during this visit. Use humidifier and ensure good hydration. If you experience new concerning symptoms, shortness of breath, respiratory distress, or chest pain go to the ER. Use the medications prescribed. May use Decongestants if tolerated and no history of elevated blood pressure or Diabetes. Use saline nasal saline and Flonase daily for1 week. You may use tylenol for pain/fever. Do not take prednisone with Ibuprofen. Get some extra rest. When should you call for help? Call anytime you think you may need emergency care. For example, call if: You have severe trouble breathing. Call your doctor now or seek immediate medical care if: You have new or worse trouble breathing. You cough up dark brown or bloody mucus (sputum). You have a new or higher fever. You have a new rash. Watch closely for changes in your health, and be sure to contact your doctor if: You cough more deeply or more often, especially if you notice more mucus or a change in the color of your mucus. You are not getting better as expected. Not available 05/23/2022 14:50:17 06/07/2022 [id number] Acute Sinusitis: Care Instructions Not available 06/07/2022 10:30:42 wheezing or bronchoconstrictio n: care instructions Not available 06/07/2022 10:30:43 An ear infection may start with a cold and affect the middle ear (otitis media). It can hurt a lot. Most ear infections clear up on their own in a couple of days and do not need antibiotics. Also, antibiotics do not work against viruses, which may be the cause of your infection. Regular doses of pain relievers are the best way to reduce your fever and help you feel better. How can you care for yourself at home? Take pain medicines exactly as directed. If the doctor gave you a prescription medicine for pain, take it as prescribed. If you are not taking a prescription pain medicine, take an ngre-imj-nafysny medicine, such as acetaminophen (Tylenol), ibuprofen (Advil, Motrin), or naproxen (Aleve). Read and follow all instructions on the label. Do not take two or more pain medicines at the same time unless the doctor told you to. Many pain medicines have acetaminophen, which is Tylenol. Too much acetaminophen (Tylenol) can be harmful. Plan to take a full dose of pain reliever before bedtime. Getting enough sleep will help you get better. Try a warm, moist face cloth on the ear. It may help relieve pain. If your doctor prescribed antibiotics, take them as directed. Do not stop taking them just because you feel better. You need to take the full course of antibiotics. [email or web address] Not available 06/07/2022 10:29:14 Patient instruct ed on worsening signs and symptoms that would require further evaluation by ED or PCP such as fever of 101.0 or greater, congestion accompanied with coughing, vomiting, diarrhea, abdominal pain, decreased oral intake, lethargy, or other new symptom(s) experienced not discussed during this visit. Use humidifier and ensure good hydration. If you experience new concerning symptoms, shortness of breath, respiratory distress, or chest pain go to the ER. Use the medications prescribed. May use Decongestants if tolerated and no history of elevated blood pressure or Diabetes. Use saline nasal saline and Flonase daily for1 week. You may use tylenol for pain/fever. Do not take prednisone with Ibuprofen. Get some extra rest. When should you call for help? Call anytime you think you may need emergency care. For example, call if: You have severe trouble breathing. Call your doctor now or seek immediate medical care if: You have new or worse trouble breathing. You cough up dark brown or bloody mucus (sputum). You have a new or higher fever. You have a new rash. Watch closely for changes in your health, and be sure to contact your doctor if: You cough more deeply or more often, especially if you notice more mucus or a change in the color of your mucus. You are not getting better as expected. Not available 06/07/2022 10:29:25 Reason for Referral None Reported. Results Created Date Observation Date Name Description Value Unit Range Abnormal Flag Note LastModifiedBy Organization Detail LastModifiedTime 05/23/20 22 05/23/2022 peak flow* Pre (L/min) 200 Not Available [facility] [address] [place] [address], [id number], 05/23/2022 14:49:41 05/23/20 22 05/23/2022 peak flow* Post (L/min) 325 Not Available emelyn bullard[address], [address], 05/23/2022 14:49:41 05/23/20 22 05/23/2022 peak flow* Pulse 88 Not Available lina rojas [address], [address], 05/23/2022 14:49:41 05/23/20 22 05/23/2022 peak flow* Oxygen Saturation 98 Not Available emelyn [address], [address], 05/23/2022 14:49:41 Result Notes None recorded. Problems Name Problem SNOMED Code Status Onset Date Resolution Date Notes Provider Name and Address Organization Details Recorded Time Asthma 259768817 Active 022 Brianna Yucaipa null, PA - [facility] 14:15:01 Irritable bowel syndrome 51715348 Active 022 Brianna Ramesh null, PA - [facility] 14:15:06 Problem Notes None recorded. Procedures Surgical History Date Name Laterality Status Provider Name and Address Organization Details Recorded Time section completed Brianna Ramesh PA - [facility] 05/23/2022 14:15:47 Imaging Results None recorded. Procedure Notes None recorded. Medical Equipment None Reported. Allergies Allergen ID Allergen Name Allergen Category Reaction Reaction Severity Criticality Documentation Date Start Date Code Code System Note Provider Name and Address Organization Details Recorded Time 81593 Ceclor medicatio n Not available Not available low 05/23/2022 5 RxNorm Brianna Yucaipa null, PA - [facility] 14:14:08 77061 Zithromax medicatio n hives Not available high 05/23/202219637 4 RxNorm Brianna Yucaipa null, PA - [facility] 2 14:14:31 Medications Name Sig Start Date Stop Date Status Note LastModified by Organization Details LastModified Time doxycycline hyclate 100 mg capsule Take 1 capsule twice a day by oral route with meals for 10 days. 2022 active Not Available Not Available Not Avai lable albuterol sulfate 2.5 mg/3 mL (0.083 %) solution for nebulization INHALE 2.5 MG 3 TIMES A DAY BY NEBULIZATIO N ROUTE FOR 10 DAYS. active Not Available Not Available No t Available benzonatate 200 mg capsule Take 1 capsule 3 times a day by oral route for 7 days. 2022 active Not Available Not Available Not Avai lable prednisone 50 mg tablet Take 1 tablet every day by oral route in the morning for 5 days. 2022 active Not Available Not Available Not Avai lable albuterol sulfate HFA 90 mcg/actuatio n aerosol inhaler Inhale 2 puffs every 4 hours by inhalation route for 7 days. 2021 active Not Available Not Available Not Avai lable fluticasone propionate 50 mcg/actuatio n nasal spray,suspen basilio SPRAY 1 SPRAY BY INTRANASAL ROUTE TWICE A DAY FOR 30 DAYS active Not Available Not Available No t Available ipratropium bromide 0.02 % solution for inhalation Inhale 0.5 mg every day by inhalation route for 1 day. 2022 active Not Available Not Available Not Avai lable Flovent HFA 220 mcg/actuatio n aerosol inhaler INHALE 2 PUFFS INTO THE LUNGS TWICE A DAY FOR 30 DAYS active Not Available Not Available Not Available omeprazole active Not Available Not Av ailable Not Available albuterol sulfate active Not Available Not Available Not Available Zyrtec active Not Available Not Availa ble Not Available Advair HFA 45 mcg-21 mcg/actuatio n aerosol inhaler INHALE 2 PUFFS INTO LUNGS EVERY 12 HOURS FOR 30 DAYS (SCHEDULE PCP APPT FOR MORE REFILLS) active Not Available Not Available No t Available Vitals Date Recorded Body height Body mass index (BMI) Body weight Body temperature Respiratory rate Heart rate Oxygen saturation Oxygen saturation in Arterial blood by Pulse oximetry Systolic blood pressure Diastolic blood pressure Provider Name and Address Organization Details Last Updated DateTime 2 165.1 cm 47.4 kg/m2 406117. 83 g 98.5 [degF] 20 /min 88 /min 97 % 97 % 110 mm[Hg] 74 mm[Hg] Brianna Chandler ticketscript - [facility] 2 14:16:33 Date Recorded Body height Body mass index (BMI) Body weight Pain severity - 0-10 verbal numeric rating [Score] - Reported Oxygen saturation Oxygen saturation in Arterial blood by Pulse oximetry Heart rate Respiratory rate Body temperature Systolic blood pressure Diastolic blood pressure Provider Name and Address Organization Details Last Updated DateTime 3 165.1 cm 47.4 kg/m2 847677. 83 g 0 97 % 97 % 79 /min 20 /min 97 [degF] 128 mm[Hg] 80 mm[Hg] MAGDIEL DERRICK PA [facility] 3 10:11:12 Social History Question Answer Notes LastModified by Visiprise ion Details LastModified Time Tobacco Smoking Status Never Smoker Brianna camilo PA - [facility] 05/23/2022 14:15:34 What Is Your Level Of Alcohol Consumption? None Information not available 05/23/2022 Have You Had Direct Contact, Or Contact During Intimacy, With Monkeypox Rash, Scabs, Or Body Fluids From A Person With Monkeypox? No Information not available 05/23/2022 Do You Use Any Illicit Or Recreational Drugs? No Information not available 05/23/2022 Have You Recently Traveled Abroad? No Information not available 05/23/2022 Do You Or Have You Ever Used Any Other Forms Of Tobacco Or Nicotine? No Information not available 05/23/2022 Sex: Unknown Functional Status None recorded. Mental Status None recorded. Family History Relationship Description Onset Age of this Age Resolved Age Notes LastModified by Organization Details LastModified Time Father No current problems or disability Not available 05/23 14:15:25 Mother No current problems or disability Not available 05/23 14:15:25 Medical History No medical history recorded. Gynecological HistoryNo gynecological history recorded. Obstetrics History GPAL:G 0 P 0 0 0 0 Immunizations Vaccine Type Date Status Note Provider Nam e and Address Organization Details Recorded Time COVID-19, mRNA, LNP-S, PF, 30 mcg/0.3 mL dose 08/22/2020 completed Brianna Ramesh null, PA - [facility] 05/23/2022 14:13:42 COVID-19, mRNA, LNP-S, PF, 100 mcg/0.5mL dose or 50 mcg/0.25mL dose 05/09/2021 completed Brianna Ramesh null, PA - [facility] 05/23/2022 14:13:42 COVID-19, mRNA, LNP-S, PF, 30 mcg/0.3 mL dose 09/13/2020 completed Brianna Ramesh null, PA - [facility] 05/23/2022 14:13:42 Past Encounters Encounter ID Performer Location Encounter Start Date Encounter Closed Date Diagnosis/Indication Diagnosis SNOMED-CT Code Diagnosis ICD10 Code Diagnosis Note [id number] [address] [facility] [place] [address] 06/05/2019 14:33:42 06/05/2019 15:58:26 [id number] [address] [address] [place] [address] 12/15/2020 08:03:03 12/15/2020 08:33:49 [id number] Javier Mcdaniel NP [address] [place] [address] 05/23/2022 12:45:20 05/23/2022 15:26:16 Acute bronchitis 04702534 J20.9 [id number] Javier Mcdaniel NP [address] [place] [address] 06/07/2022 09:41:39 06/07/2022 10:33:11 Acute bilateral otitis media 174030792 H66.93 Acute bronchitis 7685973 2 J20.9 Health Concerns Section Related Observation LastModified by Organization Detai ls LastModified Time None Recorded Concern Status LastModified by Organization Details LastModified Time None Recorded Advance Directives Directive None Recorded Payers Encounter Date Sequence Insurance Name Policy Number Policy Cook Covered Member ID Cook Member ID Guarantor Name 06/05/2019 1 [facility] (MEDICAID HMO) AUDRA Harry Swenor [id number] Chhaya Swenor 12/15/2020 1 [facility] (MEDICAID HMO) AUDRA Harry Swenor [id number] Chhaya Swenor 05/23/2022 1 [facility] (MEDICAID HMO) AUDRA Harry Swenor [id number] Chhaya Swenor 06/07/2022 1 [facility] (MEDICAID HMO) AUDRA Harry Swenor [id number] Chhaya Swenor Notes Date Note Type Note Provider Name and Address Organization Details Recorded Time 05/23/2022 text/html CoughReported bypatient.Notes:con gested cough x 7 day . now developing Wheezing and uncomfortable sleeping . Javier Mcdaniel NP [address] [place], [address], [place] - [facility] 05/23/2022 15:28:43 06/07/2022 text/html Sinus Complaints UCReported bypatient.Notes:liberty ateral ear pain and pressure, wheezing ,chest congestion. denies any SOB, Fever or respiratory distress. Javier Mcdaniel NP [address] [place], [address], PA - [facility] 06/07/2022 10:31:18 OBGyn Episode No OBEpisode recorded.
[2024-06-26] MEDS: Albuterol Sulfate 2.5 MG, Albuterol/Iprat 2.5/0.5MG 3 ML 3 ML INHALE (17:31)
[2024-06-26] MEDS: methylPREDNISolone Sod Succ 125 MG/2 ML VIAL IVPUSH (17:45)
[2024-06-26] MEDS: Acetaminophen 325 MG TABLET 650 MG PO (17:58)
--- NOTE | 2024-06-26 18:10 | PC.NURSE ---
LS coarse throughout; pt receiving neb tx; Solumedrol IVP gv per orders; pt very flushed to face and upper body; afebrile, but having chills and body aches; pt medicated per orders with PO Tylenol
--- NOTE | 2024-06-26 19:58 | MHC.EDTECH ---
This tech took over care of pt at 1900,rounded and introduced self to pt,vitals taken,BP is low RN made aware,pt appears comfortable,pt was given a turkey sandwich,and darius eaton, call ramirez in reach
[2024-06-26] MEDS: 0.9 % Sodium Chloride 1,000 ML 999 ML IV ×2 (20:34→23:12)
--- NOTE | 2024-06-26 20:35 | PC.NURSE ---
provider aware of pt soft BP, 1L bolus administered per jul.
--- NOTE | 2024-06-26 22:26 | PC.NURSE ---
pt fluids noted to be administering at a slow rate, fluids placed on pressure bag at this time.
--- NOTE | 2024-06-26 23:15 | PC.NURSE ---
attempted to do orthostatics on pt, pt just came back from ambulating to the bathroom, pressure noted to be low, provider aware, new 1L bolus administered at this time.
[2024-06-27] VITALS (8 sets, daily range): BP systolic 101–129; BP diastolic 58–81; PULSE 71–100; RESP 17–20; TEMP 36.5–36.8; O2SAT 90–95; BMI 41.0
--- NOTE | 2024-06-27 | ECG_ITS ---
Test Reason : REPEAT RYTHM Blood Pressure : */* mmHG Vent. Rate : 70 BPM Atrial Rate : 70 BPM P-R Int : 126 ms QRS Dur : 90 ms QT Int : 398 ms P-R-T Axes : 56 49 0 degrees QTcB Int : 429 ms Normal sinus rhythm Normal ECG When compared with ECG of 26-Jun-2024 11:27, Vent. rate has decreased by 34 bpm Referred By: Eugene Le Electronically Signed By: Sergey Green
[2024-06-27] MEDS: levoFLOXacin/D5W 500 MG/100 ML PIGGYBACK 100 MG IV (00:19)
[2024-06-27] MEDS: 0.9 % Sodium Chloride 1,000 ML 999 ML IV (00:19)
--- NOTE | 2024-06-27 00:23 | PC.NURSE ---
pt blood pressures noted to be low, provider aware, labs obtained, pt medicated per mar.
[2024-06-27 00:45] LABS: Lactic Acid 1.1 mmol/L (0.5-2.0)
--- NOTE | 2024-06-27 02:23 | P.HPHOSP_ITS ---
History of Present Illness Date of Service: 06/27/24 Attending physician on admission: Joseph Flynn Chief Complaint: Shortness of breath with wheezing x 1 day This is a 43-year-old obese (BMI 34.3 kilograms/meter squared) white female with a history of asthma and the IBD who presents to the emergency room from home complaining of progressively worsening shortness of breath with cough and wheezing since our last night. She was well until yesterday when she started experiencing a cold. She went to bed feeling unwell and woke up at 4:00 a.m. with a fever of 100.1? F. She took some Advil and went back to sleep but was no better when she woke up at 10:00 a.m. as her chest was still very tight. She took her asthma treatments without any relief and so decided to come to the emergency department where she received 2 breathing treatments and intravenous steroids with some improvement in her respiratory condition. She was about to be discharged home but her blood pressure dropped with systolic pressure going as low as 85 mmHg plus she felt dizzy when she stood up. Because of this, a request was made for admission for observation. When I saw her, she was still wheezy and still reported having some chest tightness. She otherwise has no other complaints. Review of Systems 2 Review of Systems: Twelve system review was completed and is as noted above in the HPI otherwise the rest of the systems review is negative. [facility] Medical History Nausea Irritable bowel Headache syndrome Dyspepsia Family History Father Medical history non-contributory Mother Medical history non-contributory Son No problems noted. Daughter No problems noted. 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 [employer] Cognitive needs: No Hearing needs: No Vision needs: No Meds Allergies Allergy/AdvReac Type Severity Reaction Status Date / Time azithromycin [From ZITHROMAX] Allergy Unknown hives Verified 06/26/24 11:41 cefaclor [From CECLOR] Allergy Unknown UNKNOWN Verified 06/26/24 11:41 Active Medications: Current Medications Acetaminophen (Acetaminophen 325 Mg Tablet) 650 mg PO Q6H PRN PRN Reason: Pain, Mild 1-3,fever,headache Albuterol/Ipratropium (Albuterol/Iprat 2.5/0.5mg 3 Ml Ampul.Neb) 3 ml INHALE Q4H PRN PRN Reason: Shortness of Breath/Wheezing Benzonatate (Benzonatate 100 Mg Capsule) 100 mg PO TID PRN PRN Reason: Cough Calcium Carbonate (Calcium Carbonate 750 Mg Tab.Chew) 750 mg PO Q4H PRN PRN Reason: Heartburn Enoxaparin Sodium (Enoxaparin Sodium 40 Mg/0.4 Ml Syringe) 40 mg SUBCUT Q24H MIMI Magnesium Hydroxide (Milk Of Magnesia 30 Ml Oral.Susp) 30 ml PO DAILY PRN PRN Reason: Constipation Melatonin (Melatonin 3 Mg Tablet) 6 mg PO BEDTIME PRN PRN Reason: Insomnia Methylprednisolone Sodium Succinate (Methylprednisolone Sod Succ 40 Mg/Ml Vial) 40 mg IVPUSH BID MIMI Ondansetron HCl (Ondansetron Hcl 4 Mg/2 Ml Vial) 4 mg IVPUSH Q8H PRN PRN Reason: Nausea and Vomiting Sodium Chloride (0.9 % Sodium Chloride Flush 3 Ml Syringe) 3 ml IVFLUSH QSHIFT MIMI Home Medications ?Medication ?Instructions ?Recorded ?Confirmed ?Last Taken ?Type acetaminophen 500 mg tablet 1,000 mg PO Q6H PRN 03/17/22 05/10/24 Unknown History (Tylenol Extra Strength) Physical Exam 2 Vital Signs and Narrative: Vital Signs: Last Vital Signs Temp 98.0 F 06/26/24 23:38 Pulse 88 06/27/24 00:00 Resp 20 06/27/24 00:00 BP 101/62 06/27/24 00:00 Pulse Ox 95 06/27/24 00:00 O2 Del Method Room Air 06/27/24 00:00 BMI result Body Mass Index 34.3 Const: Other: obese female in bed. Awake and alert. In no obvious distress. HEENT: Other: Normocephalic, atraumatic. No pallor or jaundice. BIANCA. EOMI. Eyes: Other: No pallor or jaundice. Extraocular muscle movements intact. Neck: Other: Supple with no JVD. No cervical lymphadenopathy. Trachea is midline. Chest: Other: Equal chest excursion. No use of accessory muscles of respirations. Resp: Other: normal respiratory effort. She is able to speak in complete sentences. Otherwise with coarse bilateral breath sounds in the scattered inspiratory and expiratory wheezes. Cardio: Other: Regular rate and rhythm with normal S1/S2. No murmurs, rubs or gallops. No JVD. GI: Other: Abdomen is flabby, soft, nontender, normoactive bowel sounds. No visceromegaly. : Other: Deferred Back/Spine/Pelvis: Other: no CVA tenderness. Skin: Other: Warm, dry, no bruises or ecchymosis. No mottling. Capillary refill is less than 2 seconds. Neuro: Other: Awake, alert, oriented x4. Intact speech/cognition. Normal gait / balance. CN 2-12 grossly normal. Extrem: Other: Normal muscle bulk, tone and power.No peripheral edema. Good peripheral pulses. Psych: Other: Normal cognition and affect. Results Labs 06/26/24 14:44 06/26/24 14:45 Labs: Laboratory Results - last 24 hr 06/26/24 06/26/24 06/27/24 14:44 14:45 00:15 MCV 90.1 MCH 31.4 MCHC 34.8 RDW 13.7 Plt Count 250 MPV 10.0 Immature Gran % (Auto) 0.1 Neut % (Auto) 79.7 H Lymph % (Auto) 12.1 L [place] % (Auto) 7.8 Eos % (Auto) 0.0 Baso % (Auto) 0.3 Lymph # (Auto) 0.9 L [place] # (Auto) 0.6 Eos # (Auto) 0.0 Baso # (Auto) 0.0 Abs Immat Gran (auto) 0.01 Absolute Neuts (auto) 6.1 Absolute Nucleated RBC 0.000 Nucleated RBC % (auto) 0.0 PT 13.2 H INR 1.1 Anion Gap 15 Estim Creat Clear Calc 126.9 Estimated GFR > 60 Random Glucose 85 Lactic Acid 1.1 Calcium 9.0 Magnesium 2.1 Total Bilirubin 0.5 Direct Bilirubin 0.1 AST 19 ALT 14 Alkaline Phosphatase 42 Troponin I High Sens < 2.7 B-Natriuretic Peptide 21 Total Protein 7.2 Albumin 4.1 Influenza Type A (PCR) NEGATIVE Influenza Type B (PCR) NEGATIVE RSV RNA Qual (PCR) NEGATIVE SARS-CoV-2 RNA (RT-PCR) NEGATIVE Assessment and Plan (1) Asthma exacerbation: Qualifiers: Asthma persistence: persistent Asthma severity: moderate Qualified Code(s): J45.41 - Moderate persistent asthma with (acute) exacerbation Status: Acute - she presented to the emergency room with symptoms of acute asthma exacerbation - modest improvement with inhaled beta agonists and steroids - however she is still wheezy - will admit and continue scheduled Duo Nebs and steroids - closely monitor peak flow after each treatment (2) Hypotension: Qualifiers: Hypotension type: hypotension due to drug Qualified Code(s): I95.2 - Hypotension due to drugs Status: Acute - her systolic blood pressure reportedly dropped to 85 mmHg and was associated with dizziness - this is likely due to beta agonist use - admit and place on intravenous fluids - continue to closely monitor (3) Obesity: Qualifiers: Obesity type: due to excess calories Obesity classification: adult class 1 (BMI 30 - 34.9) Serious obesity comorbidity presence: without serious comorbidity Body mass index: BMI 34.0-34.9 Qualified Code(s): E66.811 - Obesity, class 1; E66.09 - Other obesity due to excess calories; Z68.34 - Body mass index [BMI] 34.0-34.9, adult Status: Acute - ciera to excess calories - encourage weight loss Total time managing care of this patient today: 75 minutes. Quality Stroke Does the patient have a stroke diagnosis?: No VTE Prior VTE?: No VTE Risk Level:: Medical - moderate - high VTE Device Contraindication: Treatment Not Indicated VTE Drug Contraindication: N/A - Med Ordered
[2024-06-27] MEDS: Albuterol/Iprat 2.5/0.5MG 3 ML AMPUL.NEB INHALE ×2 (03:09→11:38)
[2024-06-27] MEDS: methylPREDNISolone Sod Succ 40 MG/ML VIAL IVPUSH (07:50)
[2024-06-27] MEDS: Acetaminophen 325 MG TABLET 650 MG PO (07:50)
[2024-06-27] MEDS: 0.9 % Sodium Chloride Flush 3 ML SYRINGE IVFLUSH (07:50)
[2024-06-27] MEDS: Benzonatate 100 MG CAPSULE PO (07:50)
--- NOTE | 2024-06-27 09:29 | MHC.CM.PN ---
Gala 06/27/24, Pt is functionally independent, HCP discussed, she declined to complete form. PCP confirmed: Dr. Leung. She has her car here. DCP: home, self care. CM to follow for DC needs.
--- NOTE | 2024-06-27 10:39 | PHA.MEDREC ---
Addendum entered by Manuel Schafer 06/27/24 10:56: reviewed Original Note: Pharmacy Consult ? Medication Reconciliation Pharmacy has completed the medication reconciliation Spoke to patient to confirm med list . Patient states she is not taking Methylecellulose (laxative 500 mg). Wegovy 1.7 mg. Patient confirmed Zepbound 5 mg is every Wednesday, last dose was 06/20/24. Albuterol 2.5 mg nebulizer solution and Prednisone 40 mg are ready to be picked up today. Patient hasn't started yet.
--- NOTE | 2024-06-27 11:35 | PM.DS ---
DS: Providers Provider Date of Service: 06/27/24 Date of admission: 06/27/24 02:11 Date of discharge: 06/27/24 Primary care physician: TAMIE PutnamPBetzy Consults: 06/27/24 09:11 Consult to Cardiology Routine Consulting Provider: [facility] Reason for consultation: hypotension/st inversion inferior leads Has provider been notified: No Attending physician on discharge: Eugene Le Discharging clinician: Eugene Le DS: Diagnosis Discharge Diagnosis (1) Asthma exacerbation: Status: Acute (2) Hypotension: Status: Acute (3) Obesity: Status: Acute DS: Summary Hospital Course Hospital Course: HPI:43-year-old obese (BMI 34.3 kilograms/meter squared) white female with a history of asthma and the IBD who presents to the emergency room from home complaining of progressively worsening shortness of breath with cough and wheezing since our last night. She was well until yesterday when she started experiencing a cold. She went to bed feeling unwell and woke up at 4:00 a.m. with a fever of 100.1? F. She took some Advil and went back to sleep but was no better when she woke up at 10:00 a.m. as her chest was still very tight. She took her asthma treatments without any relief and so decided to come to the emergency department where she received 2 breathing treatments and intravenous steroids with some improvement in her respiratory condition. She was about to be discharged home but her blood pressure dropped with systolic pressure going as low as 85 mmHg plus she felt dizzy when she stood up. Because of this, a request was made for admission for observation. When I saw her, she was still wheezy and still reported having some chest tightness. She otherwise has no other complaints. Hospital course: Patient was admitted for asthma(mild persistent asthma): started on nebs ,steriods , cxr negative .seems improved with supportive care , might have viral(cold) symptoms . no fevers . her blood cultures sent by ed -pending but since patient is improved and wants to follow outpatient. patient will go home with prednisone 50mg qd for 4 days. Hypotension: Probably in the setting of viral sickness, decreased p.o. intake, also patient says her blood pressure runs in lower side. Patient was given IV fluids. Blood pressure seems to be improved, patient asymptomatic. EKG reviewed and repeated-likely T-wave changes are nonspecific, discussed with the Cardiology currently no further workup recommended. Morbid obesity: Patient was encouraged to lose weight and cutdown calories. Plan: prednisone 50mg qd for 4 days. Loratadine 10 mg q.d. for 7 days. she improved ,so eager to go home and Follow-up blood culture outpatient. Above management discussed with the patient detail length she understand and in agreement with the above plan, time spent 40 minute. Time Attestation Total time managing care of this patient today: 40 mintues. Discharge Coordination Time (in mins): 40 min Quality: Safe Use of Opioids Does Pt have an Active Cancer Diagnosis on the Problem List?: No Quality: Stroke Does the patient have a stroke diagnosis?: No Physical Exam Vital Signs: Vital Signs: Last Vital Signs Temp 97.7 F 06/27/24 11:22 Pulse 71 06/27/24 11:22 Resp 18 06/27/24 11:22 BP 118/81 06/27/24 11:22 Pulse Ox 95 06/27/24 11:22 O2 Del Method Room Air 06/27/24 11:22 BMI result Body Mass Index 41.0 Appearance: Alert.? Oriented X3.?. cvs: rrr, [id number] . res: Air entry fair, no rales or wheezing. abd: no rebound or guarding ,nt, bs present. ext pulses present , no cyanosis. neuro: axo3 , nonfocal. DS: Data Data Completed and Pending Labs on day of discharge: Laboratory Results - last 24 hr 06/26/24 06/26/24 06/27/24 14:44 14:45 00:15 WBC 7.6 RBC 4.65 Hgb 14.6 Hct 41.9 MCV 90.1 MCH 31.4 MCHC 34.8 RDW 13.7 Plt Count 250 MPV 10.0 Immature Gran % (Auto) 0.1 Neut % (Auto) 79.7 H Lymph % (Auto) 12.1 L [place] % (Auto) 7.8 Eos % (Auto) 0.0 Baso % (Auto) 0.3 Lymph # (Auto) 0.9 L [place] # (Auto) 0.6 Eos # (Auto) 0.0 Baso # (Auto) 0.0 Abs Immat Gran (auto) 0.01 Absolute Neuts (auto) 6.1 Absolute Nucleated RBC 0.000 Nucleated RBC % (auto) 0.0 PT 13.2 H INR 1.1 Sodium 139 Potassium 3.5 Chloride 105 Carbon Dioxide 23 Anion Gap 15 BUN 9 Creatinine 0.63 Estim Creat Clear Calc 126.9 Estimated GFR > 60 Random Glucose 85 Lactic Acid 1.1 Calcium 9.0 Magnesium 2.1 Total Bilirubin 0.5 Direct Bilirubin 0.1 AST 19 ALT 14 Alkaline Phosphatase 42 Troponin I High Sens < 2.7 B-Natriuretic Peptide 21 Total Protein 7.2 Albumin 4.1 Influenza Type A (PCR) NEGATIVE Influenza Type B (PCR) NEGATIVE RSV RNA Qual (PCR) NEGATIVE SARS-CoV-2 RNA (RT-PCR) NEGATIVE Discharge Plan Discharge Anticipated Discharge Date/Time: 06/27/24 11:22 Patient Disposition: Home, Self-Care Discharge Diagnosis: asthma excerebation Referrals: Neo Leung FNP-BC [Primary Care Provider] - 06/28/24 Discharge Medications: New prednisone 50 mg tablet 50 mg PO DAILY Qty: 4 0RF loratadine 10 mg tablet 10 mg PO DAILY Qty: 7 0RF Continued fluticasone propionate 50 mcg/actuation spray,suspension 1 spray intranasal DAILY Qty: 16 2RF (DME) nebulizers Misc See Rx Instructions .Route Qty: 1 0RF Rx Instructions: As directed with mask and tubing cholecalciferol (vitamin D3) 50 mcg (2,000 unit) capsule 50 mcg PO DAILY Qty: 90 3RF esomeprazole magnesium [Nexium] 40 mg capsule,delayed release(DR/EC) 40 mg PO DAILY PRN (Reason: nausea) Qty: 90 5RF cetirizine 10 mg tablet 10 mg PO DAILY Qty: 90 1RF albuterol sulfate [Ventolin HFA] 90 mcg/actuation HFA aerosol inhaler 2 puff INHALATION Q6H PRN (Reason: wheezing) Zepbound 5 mg/0.5 mL pen injector 5 mg subcut TU famotidine 20 mg tablet 20 mg PO BEDTIME PRN (Reason: Acid Reflux) acetaminophen [Tylenol Extra Strength] 500 mg tablet 1,000 mg PO Q6H PRN (Reason: Pain) Discharge Orders: Discharge Order (Routine); Ordered 06/27/24 Ordered By: Eugene Le Diet: Advance to usual diet Activity on Discharge: As tolerated Stand Alone Forms: Patient Portal Discharge page, Work/School Release Print Language: [place] Citizen Care Plan Goals: Patient was admitted for asthma(mild persistent asthma): started on nebs ,steriods , cxr negative .seems improved with supportive care , might have viral(cold) symptoms . no fevers . her blood cultures sent by ed -pending but since patient is improved and wants to follow outpatient. patient will go home with prednisone 50mg qd for 4 days. Health Concerns: as above. Plan of Treatment: prednisone 50mg qd for 4 days. Assessment: as above. Patient Instructions: Asthma (ED), Upper Respiratory Infection (ED)
--- NOTE | 2024-06-27 11:38 | P.CONCA_ITS ---
History of Present Illness History of Present Illness Date of Service: 06/27/24 Requesting physician: Eugene Le Chief complaint: Asthma Exacerbation, abnormal ECG Narrative: [age] year female who is presenting with asthma exacerbation. She has known history of asthma from childhood. She said her has been was sick with a viral illness and she also started feeling symptoms of viral illness with low-grade fevers and started having shortness of breath. She came to the emergency department for these complaints. She also had some chest tightness which was thought to be related to asthma. She was treated for asthma and is feeling much better. Her EKG on admission showed inferior T-wave changes which on review appear quite nonspecific. There is also some artifact on the EKG. She is saying she is feeling much better and wants to go home. We repeated the EKG and she has nonspecific inferior T-wave changes. Biomarkers are negative with troponin less than 2.7 and BNP 21. PMFSH Past Medical History Medical History Nausea Irritable bowel Headache syndrome Dyspepsia Family History Family History Father Medical history non-contributory Mother Medical history non-contributory Son No problems noted. Daughter No problems noted. 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 Cognitive needs: No Hearing needs: No Vision needs: No Meds Allergies Allergy/AdvReac Type Severity Reaction Status Date / Time azithromycin [From ZITHROMAX] Allergy Unknown hives Verified 06/26/24 11:41 cefaclor [From CECLOR] Allergy Unknown UNKNOWN Verified 06/26/24 11:41 Active Medications: Current Medications Acetaminophen (Acetaminophen 325 Mg Tablet) 650 mg PO Q6H PRN PRN Reason: Pain, Mild 1-3,fever,headache Last Admin: 06/27/24 07:50 Dose: 650 mg Albuterol/Ipratropium (Albuterol/Iprat 2.5/0.5mg 3 Ml Ampul.Neb) 3 ml INHALE Q4H PRN PRN Reason: Shortness of Breath/Wheezing Last Admin: 06/27/24 03:09 Dose: 3 ml Albuterol/Ipratropium (Albuterol/Iprat 2.5/0.5mg 3 Ml Ampul.Neb) 3 ml INHALE RQ4H WHILE AWAKE [facility] Benzonatate (Benzonatate 100 Mg Capsule) 100 mg PO TID PRN PRN Reason: Cough Last Admin: 06/27/24 07:50 Dose: 100 mg Calcium Carbonate (Calcium Carbonate 750 Mg Tab.Chew) 750 mg PO Q4H PRN PRN Reason: Heartburn Enoxaparin Sodium (Enoxaparin Sodium 40 Mg/0.4 Ml Syringe) 40 mg SUBCUT DAILY [facility] Last Admin: 06/27/24 07:50 Dose: Not Given Magnesium Hydroxide (Milk Of Magnesia 30 Ml Oral.Susp) 30 ml PO DAILY PRN PRN Reason: Constipation Melatonin (Melatonin 3 Mg Tablet) 6 mg PO BEDTIME PRN PRN Reason: Insomnia Ondansetron HCl (Ondansetron Hcl 4 Mg/2 Ml Vial) 4 mg IVPUSH Q8H PRN PRN Reason: Nausea and Vomiting Prednisone (Prednisone 10 Mg Tablet) 50 mg PO ONCE ONE Stop: 06/27/24 11:35 Sodium Chloride (0.9 % Sodium Chloride Flush 3 Ml Syringe) 3 ml IVFLUSH QSHIFT [facility] Last Admin: 06/27/24 07:50 Dose: 3 ml Home Medications ?Medication ?Instructions ?Recorded ?Confirmed ?Last Taken ?Type acetaminophen 500 mg tablet 1,000 mg PO Q6H PRN Pain 03/17/22 06/27/24 Unknown History (Tylenol Extra Strength) albuterol sulfate 90 mcg/actuation 2 puff inhalation Q6H PRN wheezing 06/27/24 06/27/24 Unknown History aerosol inhaler (Ventolin HFA) famotidine 20 mg tablet 20 mg PO BEDTIME PRN Acid Reflux 06/27/24 06/27/24 Unknown History tirzepatide (weight loss) 5 mg/0.5 5 mg subcut TU 06/27/24 06/27/24 06/20/24 History mL subcutaneous pen injector (Zepbound) Physical Exam 2 Vital Signs: Vital Signs: Last Vital Signs Temp 97.7 F 06/27/24 11:22 Pulse 71 06/27/24 11:22 Resp 18 06/27/24 11:22 BP 118/81 06/27/24 11:22 Pulse Ox 95 06/27/24 11:22 O2 Del Method Room Air 06/27/24 11:22 BMI result Body Mass Index 41.0 GENERAL APPEARANCE: in no acute distress, pleasant. NECK: no carotid bruit, no jugular venous distention. SKIN: no suspicious lesions, warm and dry. HEART: no murmurs, regular rate and rhythm. LUNGS: Bilateral expiratory wheezes. ABDOMEN: soft, nontender. EXTREMITIES: no edema. PERIPHERAL PULSES: equal. NEUROLOGIC: No gross deficits, AAO X 3 Objective Labs and Meds 06/26/24 14:44 06/26/24 14:45 Lab results: Laboratory Results - last 24 hr 06/26/24 06/26/24 06/27/24 14:44 14:45 00:15 WBC 7.6 RBC 4.65 Hgb 14.6 Hct 41.9 MCV 90.1 MCH 31.4 MCHC 34.8 RDW 13.7 Plt Count 250 MPV 10.0 Immature Gran % (Auto) 0.1 Neut % (Auto) 79.7 H Lymph % (Auto) 12.1 L [place] % (Auto) 7.8 Eos % (Auto) 0.0 Baso % (Auto) 0.3 Lymph # (Auto) 0.9 L [place] # (Auto) 0.6 Eos # (Auto) 0.0 Baso # (Auto) 0.0 Abs Immat Gran (auto) 0.01 Absolute Neuts (auto) 6.1 Absolute Nucleated RBC 0.000 Nucleated RBC % (auto) 0.0 PT 13.2 H INR 1.1 Sodium 139 Potassium 3.5 Chloride 105 Carbon Dioxide 23 Anion Gap 15 BUN 9 Creatinine 0.63 Estim Creat Clear Calc 126.9 Estimated GFR > 60 Random Glucose 85 Lactic Acid 1.1 Calcium 9.0 Magnesium 2.1 Total Bilirubin 0.5 Direct Bilirubin 0.1 AST 19 ALT 14 Alkaline Phosphatase 42 Troponin I High Sens < 2.7 B-Natriuretic Peptide 21 Total Protein 7.2 Albumin 4.1 Influenza Type A (PCR) NEGATIVE Influenza Type B (PCR) NEGATIVE RSV RNA Qual (PCR) NEGATIVE SARS-CoV-2 RNA (RT-PCR) NEGATIVE Assessment and Plan (1) Asthma exacerbation: Qualifiers: Asthma severity: moderate Asthma persistence: persistent Qualified Code(s): J45.41 - Moderate persistent asthma with (acute) exacerbation Status: Acute (2) Nonspecific abnormal electrocardiogram (ECG): Status: Acute Plan [age] year female presenting for asthma exacerbation. She has nonspecific T-wave changes inferior leads. She has no significant symptoms currently and has improved with treatment for asthma. Exacerbation is due to viral illness which she contracted from her . Troponin less than 2.7 BNP 21. Repeat ECG is showing nonspecific T-wave changes. There are no dynamic changes. She can be discharged back home. Thank you for allowing me to participate in the care of your patient. Please feel free to contact me if you have any questions. Procedures Date of Service Date of Service: 06/27/24
[2024-06-27] MEDS: predniSONE 10 MG TABLET 50 MG PO (11:48)
== END 2024-06-27 12:14 | disposition home or self-care (01) ==
LOC: HO.ED 23:01 → HO.EDOVER 06-27 02:46 → HO.IMC 06-27 03:02
PROVIDERS: Physician Assistant; Admitting Provider Internal Medicine; Emergency Provider Emergency Medicine Emergency Medical Services; PCP Nurse Practitioner Family; Visit Provider Internal Medicine
DX: J45.41 Moderate persistent asthma with (acute) exacerbation (principal); I95.9 Hypotension, unspecified; R94.31 Abnormal electrocardiogram [ECG] [EKG]; E66.811 Obesity, class 1; E66.09 Other obesity due to excess calories; R06.02 Shortness of breath; R05.9 Cough, unspecified; R50.9 Fever, unspecified; Z68.34 Body mass index [BMI] 34.0-34.9, adult; Z79.899 Other long term (current) drug therapy; Z03.818 Encounter for observation for suspected exposure to other biological agents ruled out
CPT/HCPCS: 0241U; 36415; 71045; 80048; 80076; 83605; 83735; 83880; 84484; 85025; 85610; 87040; 93005; 94640; 96361; 96365; 96375; 96376; 99222; 99285; J1956; J2919

== ENCOUNTER → 2024-06-26 11:27 | Outpatient (BNV) | payer OTHER, SELFPAY | PROVIDERS: PCP Nurse Practitioner Family; Visit Provider Internal Medicine Cardiovascular Disease | DX: R94.31 Abnormal electrocardiogram [ECG] [EKG] (principal) | CPT/HCPCS: 93010 ==

== ENCOUNTER → 2024-06-26 19:17 | Outpatient (BNV) | payer OTHER, SELFPAY | PROVIDERS: Emergency Provider Emergency Medicine Emergency Medical Services; PCP Nurse Practitioner Family; Visit Provider Radiology Diagnostic Radiology | DX: R06.02 Shortness of breath (principal) | CPT/HCPCS: 71045 ==

== ENCOUNTER → 2024-06-27 02:11 | Outpatient (BNV) | payer OTHER, SELFPAY | PROVIDERS: Admitting Provider Internal Medicine; Emergency Provider Emergency Medicine Emergency Medical Services; PCP Nurse Practitioner Family; Visit Provider Internal Medicine | DX: J45.41 Moderate persistent asthma with (acute) exacerbation (principal); I95.2 Hypotension due to drugs; E66.811 Obesity, class 1; E66.09 Other obesity due to excess calories; Z68.34 Body mass index [BMI] 34.0-34.9, adult | CPT/HCPCS: 99235; 99499 ==

== ENCOUNTER → 2024-06-27 02:11 | Outpatient (BNV) | payer OTHER, SELFPAY | PROVIDERS: Admitting Provider Internal Medicine; Emergency Provider Emergency Medicine Emergency Medical Services; PCP Nurse Practitioner Family; Visit Provider Internal Medicine Cardiovascular Disease | DX: J45.41 Moderate persistent asthma with (acute) exacerbation (principal); R94.31 Abnormal electrocardiogram [ECG] [EKG] | CPT/HCPCS: 93010; 99222 ==

== ENCOUNTER 2024-07-10 10:28 | Outpatient (AMB) | payer OTHER, SELFPAY ==
--- OUTSIDE RECORDS SUMMARY | 2024-07-10 10:30 | XMS_ITS | Data Portability ---
Author Organization [facility] s, [id number] Address [address] [place] [id number] Care Team Providers Care Inspector Eyeglass Name Role Phone EVERTCIERRA HUGH Primary Care Provider [phone] Assessment No assessment recorded. Plan of Treatment Reminders Order Date Submit Date Provider Last Modified By Organization Details Last Modified Time Details Appointments None recorded. Lab None recorded. Referral None recorded. Procedures None recorded. Surgeries None recorded. Imaging None recorded. Medication Orders doxycycline hyclate 100 mg capsule 2022 023 [facility]2339, [address] [place] [address], [address], 3 10:30:46 benzonatate 200 mg capsule 2022 023 [facility]23[facility], [address] [place] [address], [address], 3 10:30:46 Flovent HFA 220 mcg/actuati on aerosol inhaler 2022 023 [facility] [address] [place] [address], [address], 3 10:30:46 prednisone 50 mg tablet 2022 023 [facility], [address] [place] [address], [address], 3 10:30:46 albuterol sulfate 2.5 mg/3 mL (0.083 %) solution for nebulizatio n 2021 022 ic[facility] er1 Not available 3 08:01:06 ipratropium bromide 0.02 % solution for inhalation 2021 icouverti er1 Not available 3 08:01:06 benzonatate 200 mg capsule 2021 [facility] [address] [facility], [place], [address], 2 14:51:33 prednisone 20 mg tablet 2021 023 [facility], [address] [facility], [place], [address], 3 10:07:32 albuterol sulfate HFA 90 mcg/actuati on aerosol inhaler 2021 [facility] [address] [facility], [place], [address], 2 14:51:35 Allergy Relief (fluticason e) 50 mcg/actuati on nasal spray,suspe nsion 2021 [facility] [address] [facility], [place], [address], 2 14:51:35 albuterol sulfate 2.5 mg/3 mL (0.083 %) solution for nebulizatio n 2021 [facility], [address] [place] [address], [place], [address], 2 15:28:36 Patient TargetsNo targets recorded. Patient Instructions Encounter Date Encounter Id Patient Instructions Last Modified By Organization Details Last Modified Time 05/23/2022 [id number] cough: care instructions Not available 05/23/2022 14:51:27 peak flow* DILLON [...] as expected. Not available 05/23/2022 14:50:17 06/07/2022 [id number] Acute Sinusitis: Care Instructions Not available 06/07/2022 [...] taking a prescription pain medicine, take an zilv-kae-iwzezrn medicine, such as acetaminophen (Tylenol), ibuprofen (Advil, [...] flow* Pre (L/min) 200 Not Available [id number] [address] [place] [address], [phone], 05/23/2022 14:49:41 05/23/20 22 05/23/2022 peak flow* Post (L/min) 325 Not Available emelyn bullard[address], [address], 05/23/2022 14:49:41 05/23/20 22 05/23/2022 peak flow* Pulse 88 Not Available lina rojas [address], [address], 05/23/2022 14:49:41 05/23/20 22 05/23/2022 peak flow* Oxygen Saturation 98 Not Available emelyn bullard[address], [address], 05/23/2022 14:49:41 Result Notes None recorded. Problems Name Problem SNOMED Code Status Onset Date Resolution Date Notes Provider Name and Address Organization Details Recorded Time Asthma 154519398 Active 022 Brianna Hilger null, PA - [facility] 14:15:01 Irritable bowel syndrome 14485815 Active 022 Brianna Hilger null, PA - [facility] 14:15:06 Problem [...] Name and Address Organization Details Recorded Time 91807 Ceclor medicatio n Not available Not available low 05/23/2022 5 RxNorm Brianna Hilger null, PA - [facility] 14:14:08 34589 Zithromax medicatio n hives Not available high 05/23/202219637 4 RxNorm Brianna Hilger null, PA - [facility] 2 14:14:31 [...] Updated DateTime 2 165.1 cm 47.4 kg/m2 458808. 83 g 98.5 [degF] 20 /min 88 /min 97 % 97 % 110 mm[Hg] 74 mm[Hg] Brianna Chandler [employer] - [facility] 2 14:16:33 Date Recorded Body height Body mass index (BMI) Body weight Pain severity - 0-10 verbal numeric rating [Score] - Reported Oxygen saturation Oxygen saturation in Arterial blood by Pulse oximetry Heart rate Respiratory rate Body temperature Systolic blood pressure Diastolic blood pressure Provider Name and Address Organization Details Last Updated DateTime 3 165.1 cm 47.4 kg/m2 935254. 83 g 0 97 % 97 % 79 /min 20 /min 97 [degF] 128 mm[Hg] 80 mm[Hg] MAGDIEL DERRICK PA [facility] 3 10:11:12 Social History Question Answer Notes LastModified by [employer] ion Details LastModified Time Tobacco Smoking Status Never Smoker Brianna camilo PA - [facility] 05/23/2022 14:15:34 What Is Your Level [...] 30 mcg/0.3 mL dose 08/22/2020 completed Brianna Hilger null, PA - [facility] 05/23/2022 14:13:42 [...] SNOMED-CT Code Diagnosis ICD10 Code Diagnosis Note [id number] [address] [place] [address] 06/05/2019 14:33:42 06/05/2019 15:58:26 [id number] [address] [place] [address] 12/15/2020 08:03:03 12/15/2020 08:33:49 [id number] Javier Mcdaniel NP [address] [place] [address] 05/23/2022 12:45:20 05/23/2022 15:26:16 Acute bronchitis 84286608 J20.9 [id number] Javier Mcdaniel NP [address] [place] [address] 06/07/2022 09:41:39 06/07/2022 10:33:11 Acute bilateral otitis media 256200657 H66.93 Acute bronchitis 7624341 2 J20.9 Health Concerns Section Related Observation LastModified by Organization Detai ls LastModified Time None Recorded Concern Status LastModified by Organization Details LastModified Time None Recorded Advance Directives Directive None Recorded Payers Encounter Date Sequence Insurance Name Policy Number Policy Cook Covered Member ID Cook Member ID Guarantor Name 06/05/2019 1 [facility] (MEDICAID HMO) AUDRA Harry Swenor [id number] Chhaya Swenor 12/15/2020 1 [facility] (MEDICAID HMO) AUDRA Harry Swenor [id number] Chhaya Swenor 05/23/2022 1 [facility] (MEDICAID HMO) AUDRA Harry Swenor [id number] Chhaya Swenor 06/07/2022 1 [facility] (MEDICAID HMO) AUDRA Harry Swenor [id number] Chhaya Swenor Notes Date Note Type Note Provider Name and Address Organization Details Recorded Time 05/23/2022 text/html CoughReported bypatient.Notes:con gested cough x 7 day . now developing Wheezing and uncomfortable sleeping . Javier Mcdaniel NP [address] [place], [address], PA - [facility] 05/23/2022 15:28:43 06/07/2022 text/html Sinus Complaints UCReported bypatient.Notes:liberty ateral ear pain and pressure, wheezing ,chest congestion. denies any SOB, Fever or respiratory distress. Javier Mcdaniel NP [address] [place], [address], PA - [facility] 06/07/2022 10:31:18 OBGyn Episode No OBEpisode recorded.
[2024-07-10 10:42] VITALS: BP 110/62; PULSE 56; TEMP 37; O2SAT 99; BMI 39.8
--- NOTE | 2024-07-10 10:42 | A.OFFPC_ITS ---
Vital Signs 07/10/24 10:42 Height 5 ft 4 in Weight 232 lb BMI 39.8 BP 110/62 Blood Pressure Location Lt brachial Position Sitting Pulse 56 Pulse Source Pulse Oximeter Temp 98.6 F Temp Source Oral Pulse Oximetry (%) 99 Oxygen Delivery Method Room Air Intake Visit Reasons: ED f/up - asthma Intake Note: pt is here for ED f/up regarding asthma, low htn Human Resources Professional Required: No Accompanied by: Self / Same As Patient Allergies azithromycin [From ZITHROMAX] Allergy (Unknown, Verified 07/10/24 10:43) hives cefaclor [From CECLOR] Allergy (Unknown, Verified 07/10/24 10:43) UNKNOWN Medication List - Last Reconciled 07/10/24 by NICOLA Cason- acetaminophen (Tylenol Extra Strength) 1,000 mg PO Q6H PRN albuterol sulfate 90 mcg/actuation (Ventolin HFA) 2 puffs inhalation Q6H PRN cetirizine 10 mg PO DAILY cholecalciferol (vitamin D3) 50 mcg PO DAILY esomeprazole magnesium (Nexium) 40 mg PO DAILY PRN famotidine 20 mg PO BEDTIME PRN fluticasone propionate 50 mcg/actuation 1 spray intranasal DAILY loratadine 10 mg PO DAILY nebulizers As directed with mask and tubing tirzepatide (weight loss) 7.5 mg (0.5 mL) subcut QWEEK Tobacco use date assessed: 07/10/24 Dental Screening Dental Screen Date: 07/10/24 Did you have a dental visit in the last 12 months?: Yes Did you have a dental problem in the last 6 months where you did not have access to dental care?: No Was dental information given to patient?: Patient has dentist HPI ED f/up - asthma HPI Details Chief Complaint Follow-up for asthma exacerbation. History of Present Illness The patient is a 43-year-old female presenting with a follow-up for asthma exacerbation (please see notes). She was initially hospitalized on 06/26/2024 due to an exacerbation triggered by a viral illness. During her hospitalization, she was noted to have lower than normal blood pressure, a condition that persi sted overnight. She was discharged with recommendations to monitor her symptoms closely. Currently, she reports a significant improvement in her overall condition. She no longer experiences palpitations, chest pain, or shortness of breath, and her lungs have remained clear. Although she continues to have a slight residual cough, it is improving progressively. Her recent efforts to lose weight, including regular gym attendance, have contributed positively to her overall health. She understands the importance of seeking emergency medical treatment if symptoms worsen. Social History - Engages in regular physical activity b y attending the gym. - Actively involved in weight management and reports recent success with weight loss. Health Maintenance - Continuation of monitoring symptoms re lated to asthma exacerbation and hypotension. Review of Systems - Respiratory: Reports slight residual c ough, improving. Physical Exam General: Cooperative, healthy appearing, comfortable, no acute distress and well developed Orientation: Patient oriented x3 Limitations: No limitations Head: Normal to inspection Ears: Hearing grossly normal bilaterally Nose: Normal external nose present Face and sinus: Normal facial exam Eyes: Appearance normal, both eyes and all related structures Neck: Normal visual inspection and Yes full ROM Respiratory: Lungs were clear. Normal respiratory effort and able to speak in complete sentences. Clear to auscultation bilaterally Cardiovascular: Regular rate and rhythm. Normal S1 and S2 GI: Normal to inspection. Soft to palpation and nontender Skin: No rashes or lesions noted Neuro: Patient oriented x3 Extremities: Normal to inspection Results Plan - Monitor residual cough and continue ob serving the resolution of asthma symptoms. - Educate the patient on recognizing sym ptoms that require urgent medical attention. - Encourage continuation of gym attendan ce and weight management efforts. - Provide follow-up care focusing on mon itoring not only her asthma but possible fluctuations in blood pressure to understand her baseline levels. Patient was informed and verbally consented to the use of an ambient scribe for clinic note documentation during this visit. Discussion Notes I discussed with the patient that her recent asthma exacerbation was triggered by a viral illness, leading to her recent emergency room visit and subsequent hospitalization. We reviewed her current status, which has been improving, and the importance of seeking medical attention if she experiences any worsening symptoms like shortness of breath or persistent cough. We noted that her hypotension was due to her baseline low blood pressure, a condition we should continue to monitor. I highlighted the positive impact of her regular gym sessions on her overall health and weight management goals. I provided reassurance and emphasized vigilance in monitoring her symptoms. Patient Instructions - Continue attending the gym and managin g weight loss as planned. - Monitor for any worsening of cough or new respiratory symptoms, and seek emergency medical care if they occur. - Follow up with our office as needed fo r ongoing management of asthma and blood pressure. PFSH Medical History Nausea Irritable bowel Headache syndrome Dyspepsia Surgical History Hx of emergency section No pertinent past surgical history Family History Father Medical history non-contributory Mother Medical history non-contributory Son No problems noted. Daughter No problems noted. 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 1. Little interest or pleasure in doing things: not at all 2. Feeling down, depressed, or hopeless: not at all 3. Trouble falling or staying asleep, or sleeping too much: not at all 4. Feeling tired or having little energy: not at all 5. Poor appetite or overeating: not at all 6. Feeling bad about yourself - or that you are a failure or have let yourself or your family down: not at all 7. Trouble concentrating on things, such as reading the newspaper or watching television: not at all 8. Moving or speaking so slowly that other people could have noticed. Or the opposite - being so fidgety or restless that you have been moving around a lot more than usual: not at all 9. Thoughts that you would be better off or of hurting yourself in some way: not at all Total score: 0 Depression Screening Interpretation: Negative Depression Screening Done: Yes 52771 - PHQ-9 Billing: Yes Source: Developed by Drs. Reese LRain Viveros Kurt Kroenke and colleagues, with an educational curry from [employer]. Thrive Questionnaire Date Thrive assessed: 07/10/24 I am a: Patient What is your living situation today?: I have a steady place to live Within the past 12 months, did the food you bought not last and you didn't have the money to get more?: Never true Within the past 12 months, did you worry whether your food would run out before you got money to buy more?: Never true Do you have trouble paying for medicines?: No Do you have trouble getting transportation to medical appointments?: No Do you have trouble paying your heating and electricity bill?: No Do you have trouble taking care of your child, family member or friend?: No Do you have trouble with day-to-day activities such as bathing, preparing meals, shopping, managing finances, etc.?: No Are you currently unemployed and looking for a job?: No Are you interested in more education?: No Please select the resources that you would like help with: None Currently or been in a relationship where the following occur: No concerns reported THRIVE Score: 0 AUDIT C Alcohol Use Questionnaire (AUDIT-C) 1. How often do you have a drink containing alcohol?: Never 3. How often do you have six or more drinks on one occasion?: Never Total Score: 0 Score Reviewed/Action Taken: Yes GOGO-7 AMB Questionnaire GOGO-7 Date GOGO - 7 assessed: 07/10/24 Feeling nervous, anxious, or on edge: 0 = Not at all Not being able to stop or control worryin = Not at all Worrying too much about different things: 0 = Not at all Trouble relaxin = Not at all Being so restless that it is hard to sit still: 0 = Not at all Becoming easily annoyed or irritable: 0 = Not at all Feeling afraid as if something awful might happen: 0 = Not at all Total GOGO-7 score (0-4 normal; 5-9 mild; 10-14 moderate; 15-21 severe): 0 Source: Developed by Drs. Reese Gann, Zac Mazariegos and colleagues, with an educational curry from [employer]. GOGO-7 Assessment Billing GOGO-7 Assessment Tool: GOGO-7 Assessment 53173 Physical exam (Primary Care) Vital Signs: Last Vital Signs Temp 98.6 F 07/10/24 10:42 Pulse 56 07/10/24 10:42 BP 110/62 07/10/24 10:42 Pulse Ox 99 07/10/24 10:42 Oxygen Delivery Method Room Air 07/10/24 10:42 BMI result Body Mass Index 39.8 Tobacco/Smoking Status: Tobacco use Status Tobacco use date assessed 07/10/24 07/10/24 10:46 Patient Tobacco Use Status Former Tobacco user 07/10/24 10:46 e-Cigarette/Vaping Use Never Used 07/10/24 10:46 PHQ-9: PHQ-9 Score PHQ-9: Total score 0 07/10/24 10:46 Depression Screening Interpretation: Negative Thrive Assessment: Date of Thrive Assessment Date Thrive assessed 07/10/24 07/10/24 10:46 Currently or been in a relationship where the following occur: No concerns reported Coding Level of Care Code Est Pt Level 3 (41266) Diagnoses Moderate persistent asthma with exacerbation J45.41 Asthma severity: moderate Asthma persistence: persistent Hypotension due to drugs I95.2 Hypotension type: hypotension due to drug Additional Codes GOGO-7 Assessment Billing - GOGO-7 Assessment Tool: GOGO-7 Assessment 71455 ([id number]) PHQ-9 - 61427 - PHQ-9 Billing: Yes ([id number]) Assessment & Plan Assessment & Plan (1) Asthma exacerbation: Code(s): J45.901 - Unspecified asthma with (acute) exacerbation Category: Medical Qualifiers: Asthma severity: moderate Asthma persistence: persistent Qualified Code(s): J45.41 - Moderate persistent asthma with (acute) exacerbation (2) Hypotension: Code(s): I95.9 - Hypotension, unspecified Category: Medical Qualifiers: Hypotension type: hypotension due to drug Qualified Code(s): I95.2 - Hypotension due to drugs Plan . Medications: Changed From tirzepatide (weight loss) (Zepbound) 5 mg (0.5 mL) subcut QWEEK 2 mL 0RF E66.01 - Morbid (severe) obesity due to excess calories To tirzepatide (weight loss) 7.5 mg (0.5 mL) subcut QWEEK 2 mL 0RF E66.01 - Morbid (severe) obesity due to excess calories
== END 2024-07-10 12:09 | disposition home or self-care (01) ==
PROVIDERS: PCP Nurse Practitioner Family; Visit Provider Nurse Practitioner Family
DX: J45.41 Moderate persistent asthma with (acute) exacerbation (principal); I95.2 Hypotension due to drugs

== ENCOUNTER → 2024-07-10 10:28 | Outpatient (BNVA) | payer OTHER, SELFPAY | PROVIDERS: PCP Nurse Practitioner Family; Visit Provider Nurse Practitioner Family | DX: J45.41 Moderate persistent asthma with (acute) exacerbation (principal); I95.2 Hypotension due to drugs | CPT/HCPCS: 96127; 99212 ==

== ENCOUNTER 2024-07-13 09:35 | Outpatient (AMB) | payer OTHER, SELFPAY ==
--- NOTE | 2024-07-13 09:40 | A.OFFVIS_ITS ---
Intake Visit Reasons: microscopic hematuria Intake Note: Patient is present for MICROSCOPIC HEMATURIA Urology Medication:NONE Antibiotic Allergy:AZITHROMYCIN Blood Thinner:NONE TODAY'S PVR: 0ML'S Box Blank Machine Operator Required: No Allergies azithromycin [From ZITHROMAX] Allergy (Unknown, Verified 07/13/24 09:41) hives cefaclor [From CECLOR] Allergy (Unknown, Verified 07/13/24 09:41) UNKNOWN HPI Comments Details: Chhaya is a pleasant female. She is a patient of Dr. Umanzor. 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 Daughter No problems noted. 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 Cognitive needs: No Hearing needs: No Vision needs: No Review of Systems Const Denies chills and Denies fever(s) Card Reports no additional complaints and Denies syncope Resp Denies cough GI Denies abdominal pain and Denies heartburn Reports as per HPI and Denies change in libido Neuro Denies syncope Psych Denies change in libido Endo Denies change in libido Physical Exam Const General: cooperative, healthy appearing, comfortable and no acute distress Orientation/consciousness: patient oriented x3 HEENT Face and sinus: Yes normal facial exam Mouth: moist mucous membranes Neck Neck: Yes normal visual inspection, Yes full ROM and Yes trachea midline Chest Chest palpation & inspection: normal inspection of the chest Resp Effort & Inspection: normal respiratory effort, able to speak in complete sentences and no respiratory distress GI Inspection: Yes normal to inspection Back/Spine/Pelvis Cervical Spine: normal cervical lordosis Thoracic/Lumbar Spine: thoracic and lumbar spine normal to inspection Skin General skin exam: no rashes or lesions noted Neuro General: patient oriented x3, gait normal, tone normal and moves all extremities Extrem General: Yes normal to inspection and Yes capillary refill normal Office Procedures Post Void Residual Post Residual Void Post Void Residual (PVR): 0 77098-Tmus Void Residual by ultrasound Results AMB Urinalysis, Automated UA Leukoctes 0 Kahlil/uL Last Edit by RORY Pacheco on 07/13/24 09:50 UA Nitrite Negative Last Edit by RORY Pacheco on 07/13/24 09:50 UA Urobilinogen 3.5 mg/dL Last Edit by RORY Pacheco on 07/13/24 09:5 0 UA Protein 15 mg/dL Last Edit by Ludy Lyon CCM on 07/13/24 09:50 UA pH 6.0 Last Edit by RORY Pacheco on 07/13/24 09:50 UA Blood 0 Shaun/uL Last Edit by RORY Pacheco on 07/13/24 09:50 UA Specific Dickinson 1.015 Last Edit by RORY Pacheco on 07/13/24 09: 50 UA Ketone Negative Last Edit by RORY Pacheco on 07/13/24 09:50 UA Bilirubin 0 mg/dL Last Edit by RORY Pacheco on 07/13/24 09:50 UA Glucose 0 mg/dL Last Edit by Ludy Lyon CCM on 07/13/24 09:50 Results Reviewed Results Reviewed: Laboratory Last Values Urine pH (Auto) 6.0 07/13/24 09:49 Specific Dickinson (Auto) 1.015 07/13/24 09:49 Urine Protein (Auto) 15 mg/dL 07/13/24 09:49 Glucose (UA)(Auto) 0 mg/dL 07/13/24 09:49 Urine Ketones (Auto) Negative 07/13/24 09:49 Urine Blood (Auto) 0 Shaun/uL 07/13/24 09:49 Urine Nitrite (Auto) Negative 07/13/24 09:49 Urine Bilirubin (Auto) 0 mg/dL 07/13/24 09:49 Urine Urobilinogen (Auto) 3.5 mg/dL 07/13/24 09:49 Leukocyte Esterase (Auto) 0 Kahlil/uL 07/13/24 09:49 Assessment & Plan Assessment & Plan (1) Microscopic hematuria: Code(s): R31.29 - Other microscopic hematuria Category: Medical Plan Renal bladder ultrasound Follow-up repeat check UA with nurse-practitioner Orders: Orders AMB Urinalysis Automated Today Z13.9 - Encounter for screening, unspecified US renal BI 1 Month N20.0 - Calculus of kidney, R31.29 - Other microscopic hematuria Patient Instructions: This note is constructed using voice recognition software. While every effort has been made to ensure accuracy ditching machine operator errors may have been included. Imaging studies, laboratory and physical exam results were discussed and reviewed in detail. No major barriers to patient understanding were identified. An opportunity to ask questions regarding the treatment plan was provided. All questions were answered. The patient expressed understanding and agreement with the above treatment plan. The patient is aware they should contact our office by phone for worsening of their current condition or the appearance of new urologic symptoms. Compliance is encouraged with any medications and followup testing that is ordered. It is a privilege to participate in the urologic care of your patient. If you have any questions or concerns regarding treatment for the above conditions, or other urologic issues, please do not hesitate to contact me. The office tel ephone contact is [phone]. Sincerely, Dr Aaron Napoles MD, [facility] - Urology Compassionate Specialist Care for the Genitourinary System Coding Level of Care Code New Pt Level 3 (90011) Diagnoses Microscopic hematuria R31.29 CPT Codes Post Residual Void - PVR CPT Code: 58045-Ufbr Void Residual by ultrasound ([id number])
--- OUTSIDE RECORDS SUMMARY | 2024-07-13 10:23 | XMS_ITS | Data Portability ---
Author Organization [facility], [id number] Address [address] [place] [phone] Care Team Providers Care Photograph Printer Name Role Phone EVERTCIERRA HUGH Primary Care Provider Assessment No assessment recorded. Plan of Treatment Reminders Order Date Submit Date Provider Last Modified By Organization Details Last Modified Time Details Appointments None recorded. Lab None recorded. Referral None recorded. Procedures None recorded. Surgeries None recorded. Imaging None recorded. Medication Orders doxycycline hyclate 100 mg capsule 2022 023 [id number], [address] [place] [address], [address], 3 10:30:46 benzonatate 200 mg capsule 2022 023 [facility], [address] [place] [address], [address], 3 10:30:46 Flovent HFA 220 mcg/actuati on aerosol inhaler 2022 023 [facility] [address] [place] [address], [address], 3 10:30:46 prednisone 50 mg tablet 2022 023 [facility], [address] [place] [address], [address], 3 10:30:46 albuterol sulfate 2.5 mg/3 mL (0.083 %) solution for nebulizatio n 2021 022 [facility] Not available 3 08:01:06 ipratropium bromide 0.02 % solution for inhalation 2021 ic[facility]1 Not available 3 08:01:06 benzonatate 200 mg capsule 2021 [facility] [address] [facility], [place], [address], 2 14:51:33 prednisone 20 mg tablet 2021 023 [facility], [address] [facility], [place], [address], 3 10:07:32 albuterol sulfate HFA 90 mcg/actuati on aerosol inhaler 2021 [facility], [address] [facility], [place], [address], 2 14:51:35 Allergy Relief (fluticason e) 50 mcg/actuati on nasal spray,suspe nsion 2021 [facility] [address] [facility], [place], [address], 2 14:51:35 albuterol sulfate 2.5 mg/3 mL (0.083 %) solution for nebulizatio n 2021 [facility], [address] [place] [address], [place], [address], 2 15:28:36 Patient TargetsNo targets recorded. Patient Instructions Encounter Date Encounter Id Patient Instructions Last Modified By Organization Details Last Modified Time 05/23/2022 [id number] cough: care instructions Not available 05/23/2022 14:51:27 [...] as expected. Not available 05/23/2022 14:50:17 06/07/2022 [id number] Acute Sinusitis: Care Instructions Not available 06/07/2022 [...] taking a prescription pain medicine, take an hnwv-atu-zdyginf medicine, such as acetaminophen (Tylenol), ibuprofen (Advil, [...] Pre (L/min) 200 Not Available [facility] [address] [place] [address], [phone], 05/23/2022 14:49:41 05/23/20 22 05/23/2022 peak flow* Post (L/min) 325 Not Available emelyn bullard[address], [address], 05/23/2022 14:49:41 05/23/20 22 05/23/2022 peak flow* Pulse 88 Not Available lina rojas [address], [address], 05/23/2022 14:49:41 05/23/20 22 05/23/2022 peak flow* Oxygen Saturation 98 Not Available emelyn bullard[address], [address], 05/23/2022 14:49:41 Result Notes None recorded. Problems Name Problem SNOMED Code Status Onset Date Resolution Date Notes Provider Name and Address Organization Details Recorded Time Asthma 848627860 Active 022 Brianna [place] null, [place] - [facility] 14:15:01 Irritable bowel syndrome 75774809 Active 022 Brianna [place] null, [place] - [facility] 14:15:06 Problem [...] Name and Address Organization Details Recorded Time 16823 Ceclor medicatio n Not available Not available low 05/23/2022 5 RxNorm Brianna [place] null, [place] - [facility] 14:14:08 57714 Zithromax medicatio n hives Not available high 05/23/202219637 4 RxNorm Brianna [place] null, [place] - [facility] 2 14:14:31 [...] Updated DateTime 2 165.1 cm 47.4 kg/m2 347723. 83 g 98.5 [degF] 20 /min 88 /min 97 % 97 % 110 mm[Hg] 74 mm[Hg] Brianna Chandler [employer] - [facility] 2 14:16:33 Date Recorded Body height Body mass index (BMI) Body weight Pain severity - 0-10 verbal numeric rating [Score] - Reported Oxygen saturation Oxygen saturation in Arterial blood by Pulse oximetry Heart rate Respiratory rate Body temperature Systolic blood pressure Diastolic blood pressure Provider Name and Address Organization Details Last Updated DateTime 3 165.1 cm 47.4 kg/m2 808101. 83 g 0 97 % 97 % 79 /min 20 /min 97 [degF] 128 mm[Hg] 80 mm[Hg] MAGDIEL DERRICK PA [facility] 3 10:11:12 Social History Question Answer Notes LastModified by Mingyian ion Details LastModified Time Tobacco Smoking Status Never Smoker Brianna camilo [place] - [facility] 05/23/2022 14:15:34 What Is Your Level [...] 30 mcg/0.3 mL dose 08/22/2020 completed Brianna [place] null, [place] - [facility] 05/23/2022 14:13:42 [...] SNOMED-CT Code Diagnosis ICD10 Code Diagnosis Note [id number] [address] [place] [address] 06/05/2019 14:33:42 06/05/2019 15:58:26 [id number] [address] [place] [address] 12/15/2020 08:03:03 12/15/2020 08:33:49 [id number] Javier Mcdaniel NP [address] [place] [address] 05/23/2022 12:45:20 05/23/2022 15:26:16 Acute bronchitis 71843082 J20.9 [id number] Javier Mcdaniel NP [address] [place] [address] 06/07/2022 09:41:39 06/07/2022 10:33:11 Acute bilateral otitis media 318645711 H66.93 Acute bronchitis 8250866 2 J20.9 Health Concerns Section Related Observation LastModified by Organization Detai ls LastModified Time None Recorded Concern Status LastModified by Organization Details LastModified Time None Recorded Advance Directives Directive None Recorded Payers Encounter Date Sequence Insurance Name Policy Number Policy Cook Covered Member ID Cook Member ID Guarantor Name 06/05/2019 1 [facility] (MEDICAID HMO) AUDRA Harry Swenor [id number] Chhaya Swenor 12/15/2020 1 [facility] (MEDICAID HMO) AUDRA Harry Swenor [id number] Chhaya Swenor 05/23/2022 1 [facility] (MEDICAID HMO) AUDRA Harry Swenor [id number] Chhaya Swenor 06/07/2022 1 [facility] (MEDICAID HMO) AUDRA Harry Swenor [id number] Chhaya Swenor Notes Date Note Type Note Provider Name and Address Organization Details Recorded Time 05/23/2022 text/html CoughReported bypatient.Notes:con gested cough x 7 day . now developing Wheezing and uncomfortable sleeping . Javier Mcdaniel NP [address] [place], [address], [place] - [facility] 05/23/2022 15:28:43 06/07/2022 text/html Sinus Complaints UCReported bypatient.Notes:liberty ateral ear pain and pressure, wheezing ,chest congestion. denies any SOB, Fever or respiratory distress. Javier Mcdaniel NP [address] [place], [address], [place] - [facility] 06/07/2022 10:31:18 OBGyn Episode No OBEpisode recorded.
== END 2024-07-13 10:53 | disposition home or self-care (01) ==
PROVIDERS: PCP Nurse Practitioner Family; Visit Provider Urology
DX: Z13.9 Encounter for screening, unspecified (principal); R31.29 Other microscopic hematuria
CPT/HCPCS: 99203

== ENCOUNTER → 2024-07-13 09:35 | Outpatient (REF) | payer OTHER, SELFPAY ==
--- NOTE | 2024-07-13 11:12 | ECG_ITS ---
Test Reason : ABNORMAL EKG Blood Pressure : */* mmHG Vent. Rate : 73 BPM Atrial Rate : 73 BPM P-R Int : 140 ms QRS Dur : 90 ms QT Int : 390 ms P-R-T Axes : 39 69 27 degrees QTcB Int : 429 ms Normal sinus rhythm Normal ECG When compared with ECG of 27-Jun-2024 09:53, No significant change was found Referred By: Neo Leung Electronically Signed By: REYNA VACA
== END ==
LOC: HO.CARD 09:35
PROVIDERS: Absent Provider Nurse Practitioner Family; PCP Nurse Practitioner Family; Visit Provider Urology
DX: R94.31 Abnormal electrocardiogram [ECG] [EKG] (principal)
CPT/HCPCS: 51798; 81003; 93005; 99202

== ENCOUNTER → 2024-07-13 11:12 | Outpatient (BNV) | payer OTHER, SELFPAY | PROVIDERS: Absent Provider Nurse Practitioner Family; PCP Nurse Practitioner Family; Visit Provider Internal Medicine | DX: R94.31 Abnormal electrocardiogram [ECG] [EKG] (principal) | CPT/HCPCS: 93010 ==

== ENCOUNTER 2024-08-09 14:56 | Outpatient (AMB) | payer OTHER, SELFPAY ==
[2024-08-09 14:57] VITALS: BP 122/70; PULSE 72; TEMP 36.7; O2SAT 98; BMI 38.1
--- NOTE | 2024-08-09 14:57 | A.OFFPC_ITS ---
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 Required: No Accompanied by: Self / Same As Patient Allergies azithromycin [From ZITHROMAX] Allergy (Unknown, Verified 08/09/24 14:58) hives cefaclor [From CECLOR] Allergy (Unknown, Verified 08/09/24 14:58) UNKNOWN Medication List - Last Reconciled 08/09/24 by NICOLA Cason- acetaminophen (Tylenol Extra Strength) 1,000 mg PO Q6H PRN albuterol sulfate 90 mcg/actuation (Ventolin HFA) 2 puffs inhalation Q6H PRN cetirizine 10 mg PO DAILY cholecalciferol (vitamin D3) 50 mcg PO DAILY esomeprazole magnesium (Nexium) 40 mg PO DAILY PRN famotidine 20 mg PO BEDTIME PRN fluticasone propionate 50 mcg/actuation 1 spray intranasal DAILY loratadine 10 mg PO DAILY nebulizers As directed with mask and tubing tirzepatide (weight loss) (Zepbound) 10 mg (0.5 mL) subcut QWEEK Tobacco use date assessed: 07/10/24 Dental Screening Dental Screen Date: 07/10/24 HPI Annual Physical HPI Details History of Present Illness The patient is a 43-year-old female presenting for a physical examination and on going asthma management. Her asthma presents with mild symptoms, including scattered rhonchi and wheezing that resolve quickly. The patient uses albuterol sparingly, approximately once weekly, and maintains control with Zepbound. She will also initiate the use of a fluticasone inhaler for better maintenance of her symptoms. The patient has a health-conscious lifestyle, watching her diet and engaging in regular exercise, though she reports intermittent marijuana use. 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 Denies any chest pain, abdominal pain blood stool, constipation, diarrhea -denies any current urinary issues Physical Exam General: Cooperative, healthy appearing, comfortable, no acute distress and well developed, obese Orientation: Patient oriented x3 Limitations: No limitations Head: Normal to inspection Ears: Hearing grossly normal bilaterally Nose: Normal external nose present Face and sinus: Normal facial exam Eyes: Appearance normal, both eyes and all related structures Neck: Normal visual inspection and Yes full ROM Respiratory: Scattered rhonchi wheezing easily cleared. Able to speak in complete sentences. Clear to auscultation bilaterally Cardiovascular: Regular rate and rhythm. Normal S1 and S2 GI: Normal to inspection. Soft to palpation and nontender Skin: No rashes or lesions noted Neuro: Patient oriented x3 Extremities: Normal to inspection Results Plan Today's visit involves a comprehensive assessment and management plan concerning the patient's asthma and general health. I have recommended regular use of a fluticasone inhaler in addition to the Zepbound she is currently on. Her asthma management appears effective, as evidenced by minimal albuterol use. I discussed the importance of getting fasting labs done soon to ensure overall health monitoring. Her active participation in exercise and dietary vigilance are positive contributions to her health. I suggested reducing marijuana use to improve her respiratory health. Her mammogram schedule is current, and ma intaining this is crucial. Continued monitoring of her asthma symptoms and adherence to medications are advised for effective control. Discussion Notes During the visit, I discussed with the patient the management of her asthma, emphasizing the use of a fluticasone inhaler as part of her maintenance plan, complementing her current regimen with Zepam. Discussions highlighted the benefits of exercise and dietary control on her symptoms. The need for regular lab checks, specifically fasting labs, was underscored to monitor general health. I explained the respiratory implications of marijuana use and encouraged reduction for optimal health. Her adherence to routine mammograms was noted as significant for health surveillance. Patient Instructions - Use the fluticasone inhaler as prescri bed for asthma maintenance. - Continue taking Zepam as directed. - Make an appointment for your fasting l abs soon. - Maintain your current exercise routine and diet. - Consider cessation of marijuana use to improve respiratory health. - Keep up with your regular mammogram [facility]. - Monitor asthma symptoms and use albute rol only as needed. [facility] Medical History Nausea Irritable bowel Headache syndrome Dyspepsia Surgical History Hx of emergency section No pertinent past surgical history Family History Father Medical history non-contributory Mother Medical history non-contributory Son No problems noted. Daughter No problems noted. 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 1. Little interest or pleasure in doing things: not at all 2. Feeling down, depressed, or hopeless: not at all 3. Trouble falling or staying asleep, or sleeping too much: not at all 4. Feeling tired or having little energy: not at all 5. Poor appetite or overeating: not at all 6. Feeling bad about yourself - or that you are a failure or have let yourself or your family down: not at all 7. Trouble concentrating on things, such as reading the newspaper or watching television: not at all 8. Moving or speaking so slowly that other people could have noticed. Or the opposite - being so fidgety or restless that you have been moving around a lot more than usual: not at all 9. Thoughts that you would be better off or of hurting yourself in some way: not at all Total score: 0 Depression Screening Interpretation: Negative Depression Screening Done: Yes 98358 - PHQ-9 Billing: Yes Source: Developed by Drs. Reese Gann, Rain Walton, Zac Gonzalez and colleagues, with an educational curry from [employer]. Thrive Questionnaire Date Thrive assessed: 08/09/24 I am a: Patient What is your living situation today?: I have a steady place to live Within the past 12 months, did the food you bought not last and you didn't have the money to get more?: Never true Within the past 12 months, did you worry whether your food would run out before you got money to buy more?: Never true Do you have trouble paying for medicines?: No Do you have trouble getting transportation to medical appointments?: No Do you have trouble paying your heating and electricity bill?: No Do you have trouble taking care of your child, family member or friend?: No Do you have trouble with day-to-day activities such as bathing, preparing meals, shopping, managing finances, etc.?: No Are you currently unemployed and looking for a job?: No Are you interested in more education?: No Please select the resources that you would like help with: None Currently or been in a relationship where the following occur: No concerns reported THRIVE Score: 0 AUDIT C Alcohol Use Questionnaire (AUDIT-C) 1. How often do you have a drink containing alcohol?: Monthly or less 2. How many drinks containing alcohol do you have on a typical day when you are drinking?: 3 or 4 3. How often do you have six or more drinks on one occasion?: Less than monthly Total Score: 3 Score Reviewed/Action Taken: Yes GOGO-7 AMB Questionnaire GOGO-7 Date GOGO - 7 assessed: 07/10/24 Feeling nervous, anxious, or on edge: 0 = Not at all Not being able to stop or control worryin = Not at all Worrying too much about different things: 0 = Not at all Trouble relaxin = Not at all Being so restless that it is hard to sit still: 0 = Not at all Becoming easily annoyed or irritable: 0 = Not at all Feeling afraid as if something awful might happen: 0 = Not at all Total GOGO-7 score (0-4 normal; 5-9 mild; 10-14 moderate; 15-21 severe): 0 Source: Developed by Drs. Reese Gann, Rain Walton, Zac Gonzalez and colleagues, with an educational curry from [employer]. GOGO-7 Assessment Billing GOGO-7 Assessment Tool: GOGO-7 Assessment 83128 Physical exam (Primary Care) Vital Signs: Last Vital Signs Temp 98.1 F 08/09/24 14:57 Pulse 72 08/09/24 14:57 BP 122/70 08/09/24 14:57 Pulse Ox 98 08/09/24 14:57 Oxygen Delivery Method Room Air 08/09/24 14:57 BMI result Body Mass Index 38.1 Tobacco/Smoking Status: Tobacco use Status Tobacco use date assessed 07/10/24 08/09/24 14:59 Patient Tobacco Use Status Former Tobacco user 08/09/24 14:59 e-Cigarette/Vaping Use Never Used 08/09/24 14:59 PHQ-9: PHQ-9 Score PHQ-9: Total score 0 08/09/24 14:59 Depression Screening Interpretation: Negative Thrive Assessment: Date of Thrive Assessment Date Thrive assessed 08/09/24 08/09/24 14:59 Currently or been in a relationship where the following occur: No concerns reported Coding Level of Care Code Est Pt Prev Care 40-64y(69863) Diagnoses Physical exam Z00.00 Vitamin D deficiency E55.9 Asthma J45.909 Class 1 obesity due to excess calories without serious comorbidity with body mass index (BMI) of 34.0 to 34.9 in adult E66.811; E66.09; Z68.34 Obesity type: due to excess calories Obesity classification: adult class 1 (BMI 30 - 34.9) Serious obesity comorbidity presence: without serious comorbidity Body mass index: BMI 34.0-34.9 Additional Codes GOGO-7 Assessment Billing - GOGO-7 Assessment Tool: GOGO-7 Assessment 30794 ([id number]) PHQ-9 - 72374 - PHQ-9 Billing: Yes ([id number]) Assessment & Plan Assessment & Plan (1) Physical exam: Code(s): Z00.00 - Encounter for general adult medical examination without abnormal findings Category: Medical (2) Vitamin D deficiency: Code(s): E55.9 - Vitamin D deficiency, unspecified Category: Medical (3) Asthma: Code(s): J45.909 - Unspecified asthma, uncomplicated Category: Medical (4) Obesity: Code(s): E66.9 - Obesity, unspecified Category: Medical Qualifiers: Obesity type: due to excess calories Obesity classification: adult class 1 (BMI 30 - 34.9) Serious obesity comorbidity presence: without serious comorbidity Body mass index: BMI 34.0-34.9 Qualified Code(s): E66.811 - Obesity, class 1; E66.09 - Other obesity due to excess calories; Z68.34 - Body mass index [BMI] 34.0-34.9, adult Plan . Orders: Orders Comprehensive [place]. Panel Fast Today Z00.00 - Encounter for general adult medical examination without abnormal findings Complete Blood Count Auto Diff Today Z00.00 - Encounter for general adult medical examination without abnormal findings TSH reflex Free T4 Today Z00.00 - Encounter for general adult medical examination without abnormal findings UA CC w/rflx Micro + Cult Today Z00.00 - Encounter for general adult medical examination without abnormal findings Lipid Panel Today Z00.00 - Encounter for general adult medical examination without abnormal findings Vitamin D 25-OH Total Today E55.9 - Vitamin D deficiency, unspecified Medications: New fluticasone propionate 44 mcg/actuation administer with spacer 1 puff inhalation BID 10.6 grams 0RF
--- OUTSIDE RECORDS SUMMARY | 2024-08-09 17:05 | XMS_ITS | Data Portability ---
Author Organization [facility], [address] Address [address] [place] [address] Care Team Providers Care Slot Attendant Name Role Phone EVERTCIERRA HUGH Primary Care Provider Assessment No assessment recorded. Plan of Treatment Reminders Order Date Submit Date Provider Last Modified By Organization Details Last Modified Time Details Appointments None recorded. Lab None recorded. Referral None recorded. Procedures None recorded. Surgeries None recorded. Imaging None recorded. Medication Orders doxycycline hyclate 100 mg capsule 2022 023 [facility]2339, [address] [place] [address], [address], 3 10:30:46 benzonatate 200 mg capsule 2022 023 [facility], [address] [place] [address], [address], 3 10:30:46 Flovent HFA 220 mcg/actuati on aerosol inhaler 2022 023 [facility] [address] [place] [address], [address], 3 10:30:46 prednisone 50 mg tablet 2022 023 [facility], [address] [place] [address], [address], 3 10:30:46 albuterol sulfate 2.5 mg/3 mL (0.083 %) solution for nebulizatio n 2021 022 [facility] Not available 3 08:01:06 ipratropium bromide 0.02 % solution for inhalation 2021 icouverti er1 Not available 3 08:01:06 benzonatate 200 mg capsule 2021 [facility] [address] [facility], [place], [address], 2 14:51:33 prednisone 20 mg tablet 2021 023 [facility], [address] [facility], [place], [address], 3 10:07:32 albuterol sulfate HFA 90 mcg/actuati on aerosol inhaler 2021 [facility] [address] [facility], [place], [address], 2 14:51:35 Allergy Relief (fluticason e) 50 mcg/actuati on nasal spray,suspe nsion 2021 [facility] [address] [facility], [place], [address], 2 14:51:35 albuterol sulfate 2.5 mg/3 mL (0.083 %) solution for nebulizatio n 2021 [facility], [address] [place] [address], [place], [address], 2 15:28:36 Patient TargetsNo targets recorded. Patient Instructions Encounter Date Encounter Id Patient Instructions Last Modified By Organization Details Last Modified Time 05/23/2022 [id number] cough: care instructions Not available 05/23/2022 14:51:27 [...] as expected. Not available 05/23/2022 14:50:17 06/07/2022 [id number] Acute Sinusitis: Care Instructions Not available 06/07/2022 [...] taking a prescription pain medicine, take an lwcr-fsr-avwhlml medicine, such as acetaminophen (Tylenol), ibuprofen (Advil, [...] flow* Pre (L/min) 200 Not Available [address] [address] [place] [address], [address], 05/23/2022 14:49:41 05/23/20 22 05/23/2022 peak flow* Post (L/min) 325 Not Available emelyn bullard[address], [address], 05/23/2022 14:49:41 05/23/20 22 05/23/2022 peak flow* Pulse 88 Not Available lina rojas [address], [address], 05/23/2022 14:49:41 05/23/20 22 05/23/2022 peak flow* Oxygen Saturation 98 Not Available emelyn bullard[address], [address], 05/23/2022 14:49:41 Result Notes None recorded. Problems Name Problem SNOMED Code Status Onset Date Resolution Date Notes Provider Name and Address Organization Details Recorded Time Asthma 934305817 Active 022 Brianna Ramesh null, PA - [facility] 14:15:01 Irritable bowel syndrome 92369751 Active 022 Brianna Bremen null, PA - [facility] 14:15:06 Problem [...] Name and Address Organization Details Recorded Time 43478 Ceclor medicatio n Not available Not available low 05/23/2022 5 RxNorm Brianna Bremen null, PA - [facility] 14:14:08 07427 Zithromax medicatio n hives Not available high 05/23/202219637 4 RxNorm Brianna Ramesh null, PA - [facility] 2 14:14:31 [...] Updated DateTime 2 165.1 cm 47.4 kg/m2 859386. 83 g 98.5 [degF] 20 /min 88 /min 97 % 97 % 110 mm[Hg] 74 mm[Hg] Brianna Chandler [facility] - [facility] 2 14:16:33 Date Recorded Body height Body mass index (BMI) Body weight Pain severity - 0-10 verbal numeric rating [Score] - Reported Oxygen saturation Oxygen saturation in Arterial blood by Pulse oximetry Heart rate Respiratory rate Body temperature Systolic blood pressure Diastolic blood pressure Provider Name and Address Organization Details Last Updated DateTime 3 165.1 cm 47.4 kg/m2 284479. 83 g 0 97 % 97 % 79 /min 20 /min 97 [degF] 128 mm[Hg] 80 mm[Hg] MAGDIEL DERRICK PA [facility] 3 10:11:12 Social History Question Answer Notes LastModified by fitaborate ion Details LastModified Time Tobacco Smoking Status Never Smoker Brianna camilo PA - [facility] 05/23/2022 14:15:34 What Is Your Level [...] 30 mcg/0.3 mL dose 08/22/2020 completed Brianna Bremen null, PA - [facility] 05/23/2022 14:13:42 COVID-19, mRNA, LNP-S, PF, 100 mcg/0.5mL dose or 50 mcg/0.25mL dose 05/09/2021 completed Brianna Ramesh null, PA - [facility] 05/23/2022 14:13:42 COVID-19, mRNA, LNP-S, PF, 30 mcg/0.3 mL dose 09/13/2020 completed Brianna Bremen null, PA - [facility] 05/23/2022 14:13:42 Past Encounters Encounter ID Performer Location Encounter Start Date Encounter Closed Date Diagnosis/Indication Diagnosis SNOMED-CT Code Diagnosis ICD10 Code Diagnosis Note [id number] [address] [place] [address] 06/05/2019 14:33:42 06/05/2019 15:58:26 [id number] [address] [place] [address] 12/15/2020 08:03:03 12/15/2020 08:33:49 [id number] Javier Mcdaniel NP [address] [place] [address] 05/23/2022 12:45:20 05/23/2022 15:26:16 Acute bronchitis 86911574 J20.9 [id number] Javier Mcdaniel NP [address] [place] [address] 06/07/2022 09:41:39 06/07/2022 10:33:11 Acute bilateral otitis media 438374335 H66.93 Acute bronchitis 0623902 2 J20.9 Health Concerns Section Related Observation LastModified by Organization Detai ls LastModified Time None Recorded Concern Status LastModified by Organization Details LastModified Time None Recorded Advance Directives Directive None Recorded Payers Encounter Date Sequence Insurance Name Policy Number Policy Cook Covered Member ID Cook Member ID Guarantor Name 06/05/2019 1 [facility] (MEDICAID HMO) AUDRA Harry Swenor [id number] Chhaya Swenor 12/15/2020 1 [facility] (MEDICAID HMO) AUDRA Harry Swenor [id number] Chhaya Swenor 05/23/2022 1 [facility] (MEDICAID HMO) AUDRA Harry Swenor [id number] Chhaya Swenor 06/07/2022 1 [facility] (MEDICAID HMO) AUDRA Harry Swenor [id number] Chhaya Swenor Notes Date Note Type Note Provider Name and Address Organization Details Recorded Time 05/23/2022 text/html CoughReported bypatient.Notes:con gested cough x 7 day . now developing Wheezing and uncomfortable sleeping . Javier Mcdaniel NP [address] [place], [address], [place] - [facility] 05/23/2022 15:28:43 06/07/2022 text/html Sinus Complaints UCReported bypatient.Notes:liberty ateral ear pain and pressure, wheezing ,chest congestion. denies any SOB, Fever or respiratory distress. Javier Mcdaniel NP [address] [place], [address], PA - [facility] 06/07/2022 10:31:18 OBGyn Episode No OBEpisode recorded.
== END 2024-08-09 15:24 | disposition home or self-care (01) ==
LOC: HO.HMCC 14:57
PROVIDERS: PCP Nurse Practitioner Family; Visit Provider Nurse Practitioner Family
DX: Z00.00 Encounter for general adult medical examination without abnormal findings (principal); E55.9 Vitamin D deficiency, unspecified; J45.909 Unspecified asthma, uncomplicated; E66.811 Obesity, class 1; E66.09 Other obesity due to excess calories; Z68.34 Body mass index [BMI] 34.0-34.9, adult

== ENCOUNTER → 2024-08-09 14:56 | Outpatient (BNVA) | payer OTHER, SELFPAY | PROVIDERS: PCP Nurse Practitioner Family; Visit Provider Nurse Practitioner Family | DX: Z00.00 Encounter for general adult medical examination without abnormal findings (principal); E55.9 Vitamin D deficiency, unspecified; E66.09 Other obesity due to excess calories; Z68.34 Body mass index [BMI] 34.0-34.9, adult | CPT/HCPCS: 96127; 99396 ==

== ENCOUNTER 2024-08-17 15:28 | Outpatient (REF) | payer OTHER, SELFPAY ==
--- NOTE | ~2024-08-17 | US_ITS ---
EXAMINATION: US KIDNEY BILATERAL HISTORY: N20.0 - Calculus of kidney TECHNIQUE: Real-time grayscale ultrasound imaging of the kidneys was performed and images were reviewed. COMPARISON: There are no prior studies for comparison. FINDINGS: Right kidney: The right kidney measures 11.0 x 5.4 x 5.6 cm. Renal parenchymal echotexture and thickness are normal. There are no masses. There is no hydronephrosis or renal calculi. Left Kidney: The left kidney measures 11.4 x 5.0 x 6.9 cm. Renal parenchymal echotexture and thickness are normal. There are no masses. There is no hydronephrosis or renal calculi. US/US renal BI IMPRESSION: Unremarkable renal ultrasound. Electronically signed by: Reese Kitchen MD 08/17/2024 03:52 PM EDT
== END 2024-08-17 15:29 | disposition home or self-care (01) ==
LOC: HO.HMGCX 15:28
PROVIDERS: PCP Nurse Practitioner Family; Visit Provider Urology
DX: N20.0 Calculus of kidney (principal); R31.29 Other microscopic hematuria
CPT/HCPCS: 76775

== ENCOUNTER → 2024-08-17 15:30 | Outpatient (BNV) | payer OTHER, SELFPAY | PROVIDERS: PCP Nurse Practitioner Family; Visit Provider Radiology Diagnostic Radiology | DX: N20.0 Calculus of kidney (principal) | CPT/HCPCS: 76775 ==

== ENCOUNTER 2024-09-25 15:45 | Outpatient (REF) | payer OTHER, SELFPAY ==
--- NOTE | ~2024-09-25 | CT_ITS ---
CLINICAL HISTORY: R31.29 - Other microscopic hematuria CT abdomen and pelvis with and without contrast Comparison: US/SR - US RENAL BI - 08/17/24 15:35 EDT Findings: CT abdomen: Lung bases are clear. Degenerative change throughout the thoracolumbar spine without acute bony lesion. No renal or ureteral calculi identified on the noncontrast portion of the study. No calcified gallstones. No significant vascular calcification. Contrast injection was then performed. There is symmetric enhancement of the kidneys. No mass or hydronephrosis. No filling defects are seen within the intrarenal collecting systems. Ureters are visualized to the level of the distal ureter. Faint contrast is seen within the urinary bladder. No focal hepatic lesions. Mild focal fatty infiltration within the left lobe of the liver adjacent to the falciform ligament. Main portal vein is patent. Spleen, pancreas, gallbladder, and adrenal glands are unremarkable. Moderate fluid distention of the stomach. Fluid-filled loops of nondilated small bowel. No free fluid or free air. CT pelvis: Scattered diverticuli within the colon without findings of diverticulitis. Appendix is normal. IUD is seen within the mid uterus. No free fluid or free air. No enlarged lymph nodes. IMPRESSION: 1. No imaging explanation for the patient's hematuria. Specifically, no renal or ureteral calculi. 2. Colonic diverticulosis without diverticulitis. This document has been electronically signed by: Thai Ndiaye MD on 09/27/2024 10:02:45
--- OUTSIDE RECORDS SUMMARY | 2024-09-25 17:16 | XMS_ITS | Data Portability ---
Author Organization [facility], [address] Address [address] [place] [address] Care Team Providers Care Clay Pigeon Setter Name Role Phone EVERTCIERRA HUGH Primary Care Provider Assessment No assessment recorded. Plan of Treatment Reminders Order Date Submit Date Provider Last Modified By Organization Details Last Modified Time Details Appointments None recorded. Lab None recorded. Referral None recorded. Procedures None recorded. Surgeries None recorded. Imaging None recorded. Medication Orders doxycycline hyclate 100 mg capsule 2022 023 [facility], [address] [place] [address], [address], 3 10:30:46 benzonatate 200 mg capsule 2022 023 [facility], [address] [place] [address], [address], 3 10:30:46 Flovent HFA 220 mcg/actuati on aerosol inhaler 2022 023 [facility] [address] [place] [address], [address], 3 10:30:46 prednisone 50 mg tablet 2022 023 [facility], [address] [place] [address], [address], 3 10:30:46 albuterol sulfate 2.5 mg/3 mL (0.083 %) solution for nebulizatio n 2021 022 icouverti er1 Not available 3 08:01:06 ipratropium bromide 0.02 % solution for inhalation 2021 ic[facility]verti er1 Not available 3 08:01:06 benzonatate 200 mg capsule 2021 [facility] [address] [facility], [place], [address], 2 14:51:33 prednisone 20 mg tablet 2021 023 [facility] [address] [facility], [place], [address], 3 10:07:32 albuterol sulfate HFA 90 mcg/actuati on aerosol inhaler 2021 [facility] [address] [facility], [place], [address], 2 14:51:35 Allergy Relief (fluticason e) 50 mcg/actuati on nasal spray,suspe nsion 2021 [facility] [address] [facility], [place], [address], 2 14:51:35 albuterol sulfate 2.5 mg/3 mL (0.083 %) solution for nebulizatio n 2021 [facility], [address] [place] [address], [place], [address], 2 15:28:36 Patient TargetsNo targets recorded. Patient Instructions Encounter Date Encounter Id Patient Instructions Last Modified By Organization Details Last Modified Time 05/23/2022 [id number] cough: care instructions Not available 05/23/2022 14:51:27 [...] as expected. Not available 05/23/2022 14:50:17 06/07/2022 [id number] Acute Sinusitis: Care Instructions Not available 06/07/2022 [...] taking a prescription pain medicine, take an xqro-cbk-jefhbsm medicine, such as acetaminophen (Tylenol), ibuprofen (Advil, [...] flow* Pre (L/min) 200 Not Available [facility] [address] [place] [address], [address], 05/23/2022 14:49:41 05/23/20 22 05/23/2022 peak flow* Post (L/min) 325 Not Available emelyn bullard[address], [address], 05/23/2022 14:49:41 05/23/20 22 05/23/2022 peak flow* Pulse 88 Not Available lina rojas [address], [address], 05/23/2022 14:49:41 05/23/20 22 05/23/2022 peak flow* Oxygen Saturation 98 Not Available emelyn bullard[address], [address], 05/23/2022 14:49:41 Result Notes None recorded. Problems Name Problem SNOMED Code Status Onset Date Resolution Date Notes Provider Name and Address Organization Details Recorded Time Asthma 565107865 Active 022 Brianna Ramesh null, PA - [facility] 14:15:01 Irritable bowel syndrome 79492975 Active 022 Brianna Ramesh null, PA - [facility] 14:15:06 Problem Notes None recorded. Procedures Surgical History Date Name Laterality Status Provider Name and Address Organization Details Recorded Time section completed Brianna Mannford PA - [facility] 05/23/2022 14:15:47 Imaging Results None recorded. Procedure Notes None recorded. Medical Equipment None Reported. Allergies Allergen ID Allergen Name Allergen Category Reaction Reaction Severity Criticality Documentation Date Start Date Code Code System Note Provider Name and Address Organization Details Recorded Time 63346 Ceclor medicatio n Not available Not available low 05/23/2022 5 RxNorm Brianna Ramesh null, PA - [facility] 14:14:08 61022 Zithromax medicatio n hives Not available high 05/23/202219637 4 RxNorm Brianna Mannford null, PA - [facility] 2 14:14:31 [...] Updated DateTime 2 165.1 cm 47.4 kg/m2 752941. 83 g 98.5 [degF] 20 /min 88 /min 97 % 97 % 110 mm[Hg] 74 mm[Hg] Brianna Chandler [facility] - [facility] 2 14:16:33 Date Recorded Body height Body mass index (BMI) Body weight Pain severity - 0-10 verbal numeric rating [Score] - Reported Oxygen saturation Oxygen saturation in Arterial blood by Pulse oximetry Heart rate Respiratory rate Body temperature Systolic blood pressure Diastolic blood pressure Provider Name and Address Organization Details Last Updated DateTime 3 165.1 cm 47.4 kg/m2 511661. 83 g 0 97 % 97 % 79 /min 20 /min 97 [degF] 128 mm[Hg] 80 mm[Hg] MAGDIEL DERRICK PA [facility] 3 10:11:12 Social History Question Answer Notes LastModified by [employer] ion Details LastModified Time Tobacco Smoking Status Never Smoker Brianna camilo PA - [facility] 05/23/2022 14:15:34 What Is Your Level [...] 30 mcg/0.3 mL dose 09/13/2020 completed Brianna Mannford null, PA - [facility] 05/23/2022 14:13:42 Past Encounters Encounter ID Performer Location Encounter Start Date Encounter Closed Date Diagnosis/Indication Diagnosis SNOMED-CT Code Diagnosis ICD10 Code Diagnosis Note [id number] [address] [place] [address] 06/05/2019 14:33:42 06/05/2019 15:58:26 [id number] [address] [place] [address] 12/15/2020 08:03:03 12/15/2020 08:33:49 [id number] Javier Mcdaniel NP [address] [place] [address] 05/23/2022 12:45:20 05/23/2022 15:26:16 Acute bronchitis 75939987 J20.9 [id number] Javier Mcdaniel NP [address] [place] [address] 06/07/2022 09:41:39 06/07/2022 10:33:11 Acute bilateral otitis media 618587562 H66.93 Acute bronchitis 1998031 2 J20.9 Health Concerns Section Related Observation LastModified by Organization Detai ls LastModified Time None Recorded Concern Status LastModified by Organization Details LastModified Time None Recorded Advance Directives Directive None Recorded Payers Encounter Date Sequence Insurance Name Policy Number Policy Cook Covered Member ID Cook Member ID Guarantor Name 06/05/2019 1 [facility] PLAN (MEDICAID HMO) AUDRA Harry Swenor [id number] Chhaya Swenor 12/15/2020 1 [facility] PL[facility] (MEDICAID HMO) AUDRA Harry Swenor [id number] Chhaya Swenor 05/23/2022 1 [facility] (MEDICAID HMO) AUDRA Harry Swenor [id number] Chhaya Swenor 06/07/2022 1 [facility] (MEDICAID HMO) AUDRA Harry Swenor [id number] Chhaya Swenor Notes Date Note Type Note Provider Name and Address Organization Details Recorded Time 05/23/2022 text/html CoughReported bypatient.Notes:con gested cough x 7 day . now developing Wheezing and uncomfortable sleeping . Javier Mcdaniel NP [address] [place], [address], [place] - [facility] 05/23/2022 15:28:43 06/07/2022 text/html Sinus Complaints UCReported bypatient.Notes:liberty ateral ear pain and pressure, wheezing ,chest congestion. denies any SOB, Fever or respiratory distress. Javier Mcdaniel NP [address] [place], [address], [place] - [facility] 06/07/2022 10:31:18 OBGyn Episode No OBEpisode recorded.
[2024-09-25] MEDS: iohexoL 350 MG/ML 75 ML INFUS..BTL 85 ML IV (17:29)
== END 2024-09-25 15:46 | disposition home or self-care (01) ==
LOC: HO.CT 15:45
PROVIDERS: PCP Nurse Practitioner Family; Visit Provider Nurse Practitioner Family
DX: R31.29 Other microscopic hematuria (principal)
CPT/HCPCS: 74178; Q9967

== ENCOUNTER → 2024-09-25 15:47 | Outpatient (BNV) | payer OTHER, SELFPAY | PROVIDERS: PCP Nurse Practitioner Family; Visit Provider Radiology Diagnostic Radiology | DX: K57.30 Diverticulosis of large intestine without perforation or abscess without bleeding (principal) | CPT/HCPCS: 74178 ==

== ENCOUNTER 2024-10-10 15:54 | Outpatient (AMB) | payer OTHER, SELFPAY ==
--- NOTE | 2024-10-10 15:57 | MHC.OFFVIS ---
Intake Visit Reasons: 2m/US/UA Intake Note: Patient presents today for follow up on: microscopic hematuria, ultrasound and CT Scan results Ultrasound Completed: 08/17/24 CT Scan Completed: 09/27/24 Urology Medication:NONE Antibiotic Allergy:AZITHROMYCIN Blood Thinner:NONE Logging Specialist Required: No Allergies azithromycin [From ZITHROMAX] Allergy (Unknown, Verified 10/10/24 16:47) hives cefaclor [From CECLOR] Allergy (Unknown, Verified 10/10/24 16:47) UNKNOWN Medication List - Last Reconciled 10/10/24 by GRAY Hardy albuterol sulfate 90 mcg/actuation (Ventolin HFA) 2 puffs inhalation Q6H PRN 30 days budesonide 90 mcg/actuation (Pulmicort Flexhaler) 1 inh inhalation BID cetirizine 10 mg PO DAILY cholecalciferol (vitamin D3) 50 mcg PO DAILY famotidine 20 mg PO BEDTIME PRN fluticasone propionate 50 mcg/actuation 1 spray intranasal DAILY loratadine 10 mg PO DAILY nebulizers As directed with mask and tubing tirzepatide (weight loss) 15 mg (0.5 mL) subcut QWEEK HPI Comments Details: Chhaya is a very pleasant 43-year-old female patient of Dr. Umanzor. She has a past medical history of headaches, dyspepsia, and irritable bowel syndrome. She presents to the office today for follow-up of her microscopic hematuria. Recent CT urogram results reviewed with the patient today. 10/15 there is symmetric enhancement of the kidneys. No mass or hydronephrosis noted bilaterally. No filling defects are seen within the intrarenal collecting system. Ureters are visualized to the level of the distal ureter. No imaging explanation of the patient's microscopic hematuria. Specifically no renal calculi or ureteral calculi noted. In office urinalysis results reviewed with the patient today 3+ microscopic hematuria however patient does report currently being on her menses. During last office visit approximately 3 months ago as a new patient for microscopic hematuria there was no microscopic hematuria noted on initial presentation to the office today. We discussed at length potential causes of microscopic hematuria as well as further workup to include cystoscopy. She does report a dependence of recreational marijuana however states it is not daily and or frequent. She otherwise denies any bothersome urinary issues. She denies urinary urgency, urinary frequency, incontinence, nocturia,gross/visible hematuria, dysuria, foul smelling urine, changes to urinary stream, flank pain, fever, and or chills. She is happy with her current voiding parameters. [facility] Medical History Nausea Irritable bowel Headache syndrome Dyspepsia Surgical History Hx of emergency section No pertinent past surgical history Family History Father Medical history non-contributory Mother Medical history non-contributory Son No problems noted. Daughter No problems noted. 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 Cognitive needs: No Hearing needs: No Vision needs: No Review of Systems Const All systems reviewed & are unremarkable except as noted in HPI and below Physical Exam Const General: cooperative, healthy appearing, comfortable, no acute distress, well developed, alert and awake Nutritional Appearance: overweight Orientation/consciousness: patient oriented x3 Limitations: no limitations HEENT Head: Yes normal to inspection, Yes normocephalic and Yes atraumatic Ears: hearing grossly normal bilaterally Eyes General: appearance normal, both eyes and all related structures Neck Neck: Yes normal visual inspection and Yes trachea midline Chest Chest palpation & inspection: normal inspection of the chest Resp Effort & Inspection: normal respiratory effort and able to speak in complete sentences Cardio Rate: regular rate GI Inspection: Yes normal to inspection General: Yes no CVA tenderness Back/Spine/Pelvis Back: no CVA tenderness Skin General skin exam: no rashes or lesions noted Neuro General: patient oriented x3 Extrem General: Yes normal to inspection Psych Appearance: grossly normal and well kempt Mental Status: mental status grossly normal Speech and movement: Normal speech and movement present and Clear speech present Affect: normal affect Attitude: cooperative Thought process: Normal thought process present Thought content: Normal thought content present Insight: Fair insight present (Psych) Judgement: Fair judgement present (Psych) Results AMB Urinalysis, Automated UA Leukoctes 0 Kahlil/uL Last Edit by [employer] on 10/10/24 17:02 UA Nitrite Last Edit by [employer] on 10/10/24 17:02 UA Urobilinogen 0.2 mg/dL Last Edit by [employer] on 10/10/24 17:02 UA Protein 0 mg/dL Last Edit by [employer] on 10/10/24 17:02 UA pH 6.0 Last Edit by [employer] on 10/10/24 17:02 UA Blood 200 Shaun/uL Last Edit by [employer] on 10/10/24 17:02 UA Specific Volga 1.005 Last Edit by [employer] on 10/10/24 17:02 UA Ketone Last Edit by [employer] on 10/10/24 17:02 UA Bilirubin 0 mg/dL Last Edit by [employer] on 10/10/24 17:02 UA Glucose 0 mg/dL Last Edit by [employer] on 10/10/24 17:02 Results Reviewed Results Reviewed: Laboratory Last Values Urine pH (Auto) 6.0 10/10/24 16:05 Specific Volga (Auto) 1.005 10/10/24 16:05 Urine Protein (Auto) 0 mg/dL 10/10/24 16:05 Glucose (UA)(Auto) 0 mg/dL 10/10/24 16:05 Urine Blood (Auto) 200 Shaun/uL 10/10/24 16:05 Urine Bilirubin (Auto) 0 mg/dL 10/10/24 16:05 Urine Urobilinogen (Auto) 0.2 mg/dL 10/10/24 16:05 Leukocyte Esterase (Auto) 0 Kahlil/uL 10/10/24 16:05 Date of Service: 09/25/24 Procedure(s): CT urogram Findings: CT abdomen: Lung bases are clear. Degenerative change throughout the thoracolumbar spine without acute bony lesion. No renal or ureteral calculi identified on the noncontrast portion of the study. No calcified gallstones. No significant vascular calcification. Contrast injection was then performed. There is symmetric enhancement of the kidneys. No mass or hydronephrosis. No filling defects are seen within the intrarenal collecting systems. Ureters are visualized to the level of the distal ureter. Faint contrast is seen within the urinary bladder. No focal hepatic lesions. Mild focal fatty infiltration within the left lobe of the liver adjacent to the falciform ligament. Main portal vein is patent. Spleen, pancreas, gallbladder, and adrenal glands are unremarkable. Moderate fluid distention of the stomach. Fluid-filled loops of nondilated small bowel. No free fluid or free air. CT pelvis: Scattered diverticuli within the colon without findings of diverticulitis. Appendix is normal. IUD is seen within the mid uterus. No free fluid or free air. No enlarged lymph nodes. IMPRESSION: 1. No imaging explanation for the patient's hematuria. Specifically, no renal or ureteral calculi. 2. Colonic diverticulosis without diverticulitis. Assessment & Plan Assessment & Plan (1) Microscopic hematuria: Code(s): R31.29 - Other microscopic hematuria Category: Medical (2) Marijuana smoker, episodic: Code(s): F12.90 - Cannabis use, unspecified, uncomplicated Category: Medical Plan In office urinalysis results reviewed with the patient today; as noted above; will send for urine cytology. We discussed at length potential causes of microscopic hematuria as well as further workup in risks and benefits of these interventions She would like to continue with surveillance monitoring. She currently denies any bothersome urinary issues or concerns. She reports be happy with current voiding parameters. We discussed the importance of limiting/quitting marijuana dependence for overall health and well-being. Follow-up in 6 months; or sooner with any issues, concerns, and or questions. Orders: Orders Urine Cytology Today R31.29 - Other microscopic hematuria AMB Urinalysis Automated Today R31.29 - Other microscopic hematuria, Z13.9 - Encounter for screening, unspecified Patient Instructions: The patient had an opportunity to ask questions regarding the treatment plan. All questions were answered. Physical exam, labs, and imaging were discussed and reviewed in detail. As well as risks, benefits, and discussion of treatment choices. No major barriers to understanding were identified. The patient expressed understanding and agreement with the above treatment plan. The patient was made aware they should contact our office by phone for worsening of their current condition, the appearance of new symptoms, or with any questions or concerns. Compliance is encouraged with any medications and follow up testing that is ordered. It is a privilege to be allowed the opportunity to participate in? your urological care.? Again, if you have any questions or concerns If you have any questions or concerns please do not hesitate to contact me. The office is [phone]. This note is constructed using voice recognition software. While every effort has been made to ensure accuracy breakfast cook errors may have been included. Yours sincerely, NICOLA Hardy-EVE Coding Level of Care Code Est Pt Level 3 (46699) Diagnoses Microscopic hematuria R31.29 Marijuana smoker, episodic F12.90
--- OUTSIDE RECORDS SUMMARY | 2024-10-10 16:41 | XMS_ITS | Data Portability ---
Author Organization [facility], [address] Address [address] [place] [id number] Care Team Providers Care Assessment Manager Name Role Phone EVERTCIERRA HUGH Primary Care Provider Assessment No assessment recorded. Plan of Treatment Reminders Order Date Submit Date Provider Last Modified By Organization Details Last Modified Time Details Appointments None recorded. Lab None recorded. Referral None recorded. Procedures None recorded. Surgeries None recorded. Imaging None recorded. Medication Orders doxycycline hyclate 100 mg capsule 2022 023 [facility][id number], [address] [place] [address], [address], 3 10:30:46 benzonatate 200 mg capsule 2022 023 [facility], [address] [place] [address], [address], 3 10:30:46 Flovent HFA 220 mcg/actuati on aerosol inhaler 2022 023 [facility] [address] [place] [address], [address], 3 10:30:46 prednisone 50 mg tablet 2022 023 [facility], [address] [place] [address], [address], 3 10:30:46 albuterol sulfate 2.5 mg/3 mL (0.083 %) solution for nebulizatio n 2021 022 [facility] Not available 3 08:01:06 ipratropium bromide 0.02 % solution for inhalation 2021 ic[facility] er1 Not available 3 08:01:06 benzonatate 200 mg capsule 2021 [facility] [address] [facility], [place], [address], 2 14:51:33 prednisone 20 mg tablet 2021 023 [facility], [address] [facility], [place], [address], 3 10:07:32 albuterol sulfate HFA 90 mcg/actuati on aerosol inhaler 2021 [facility] [address] [facility], [place], [address], 2 14:51:35 Allergy Relief (fluticason e) 50 mcg/actuati on nasal spray,suspe nsion 2021 [facility] [address] [facility], [place], [address], 2 14:51:35 albuterol sulfate 2.5 mg/3 mL (0.083 %) solution for nebulizatio n 2021 [facility], [address] [place] [address], [place], [address], 2 15:28:36 Patient TargetsNo targets recorded. Patient Instructions Encounter Date Encounter Id Patient Instructions Last Modified By Organization Details Last Modified Time 05/23/2022 [id number] cough: care instructions Not available 05/23/2022 14:51:27 [...] as expected. Not available 05/23/2022 14:50:17 06/07/2022 [id number] Acute Sinusitis: Care Instructions Not available 06/07/2022 [...] taking a prescription pain medicine, take an agkc-lyo-ejaatgb medicine, such as acetaminophen (Tylenol), ibuprofen (Advil, [...] flow* Pre (L/min) 200 Not Available [facility] [address] [place] [address], [address], 05/23/2022 14:49:41 05/23/20 22 05/23/2022 peak flow* Post (L/min) 325 Not Available emelyn bullard[address], [address], 05/23/2022 14:49:41 05/23/20 22 05/23/2022 peak flow* Pulse 88 Not Available lina rojas [address], [address], 05/23/2022 14:49:41 05/23/20 22 05/23/2022 peak flow* Oxygen Saturation 98 Not Available emelyn [address], [address], 05/23/2022 14:49:41 Result Notes None recorded. Problems Name Problem SNOMED Code Status Onset Date Resolution Date Notes Provider Name and Address Organization Details Recorded Time Asthma 892299855 Active 022 Brianna [place] null, [place] - [facility] 14:15:01 Irritable bowel syndrome 32496766 Active 022 Brianna [place] null, [place] - [facility] 14:15:06 Problem Notes None recorded. Procedures Surgical History Date Name Laterality Status Provider Name and Address Organization Details Recorded Time section completed Brianna Troutville [place] - [facility] 05/23/2022 14:15:47 Imaging Results None recorded. Procedure Notes None recorded. Medical Equipment None Reported. Allergies Allergen ID Allergen Name Allergen Category Reaction Reaction Severity Criticality Documentation Date Start Date Code Code System Note Provider Name and Address Organization Details Recorded Time 06923 Ceclor medicatio n Not available Not available low 05/23/2022 5 RxNorm Brianna [place] null, [place] - [facility] 14:14:08 58218 Zithromax medicatio n hives Not available high [...] Updated DateTime 2 165.1 cm 47.4 kg/m2 528259. 83 g 98.5 [degF] 20 /min 88 /min 97 % 97 % 110 mm[Hg] 74 mm[Hg] Brianna Patelbe PA - [facility] 2 14:16:33 Date Recorded Body height Body mass index (BMI) Body weight Oxygen saturation Oxygen saturation in Arterial blood by Pulse oximetry Heart rate Respiratory rate Body temperature Systolic blood pressure Diastolic blood pressure Provider Name and Address Organization Details Last Updated DateTime 3 165.1 cm 47.4 kg/m2 330847. 83 g 97 % 97 % 79 /min 20 /min 97 [degF] 128 mm[Hg] 80 mm[Hg] MAGDIEL DERRICK [employer] [facility] 3 10:11:12 Social History Question Answer Notes LastModified by [facility] Details LastModified Time Tobacco Smoking Status Never Smoker Brianna camilo [place] - [facility] 05/23/2022 14:15:34 Have You Had Direct Contact, Or Contact During Intimacy, With Monkeypox Rash, Scabs, Or Body Fluids From A Person With Monkeypox? No Information not available 05/23/2022 Have You Recently Traveled Abroad? No Information not available 05/23/2022 Sex: Unknown Functional Status Question Answer Note LastModified by [facility] Details LastModified Time Do you use any illicit or recreational drugs? No Information not available 05/23/2022 Do you or have you ever used any other forms of tobacco or nicotine? No Information not available 05/23/2022 What is your level of alcohol consumption? None Information not available 05/23/2022 Mental Status None recorded. Family History Relationship [...] or 50 mcg/0.25mL dose 05/09/2021 completed Brianna Trout[place] null, [place] - [facility] 05/23/2022 14:13:42 COVID-19, mRNA, LNP-S, PF, 30 mcg/0.3 mL dose 09/13/2020 completed Brianna Trout[place] null, [place] - [facility] 05/23/2022 14:13:42 Past Encounters Encounter ID Performer Location Encounter Start Date Encounter Closed Date Diagnosis/Indication Diagnosis SNOMED-CT Code Diagnosis ICD10 Code Diagnosis Note [id number] [address] [place] [address] 06/05/2019 14:33:42 06/05/2019 15:58:26 [id number] [address] [place] [address] 12/15/2020 08:03:03 12/15/2020 08:33:49 [id number] Javier Mcdaniel NP [address] [place] [address] 05/23/2022 12:45:20 05/23/2022 15:26:16 Acute bronchitis 29845526 J20.9 [id number] Javier Mcdaniel NP [address] [place] [address] 06/07/2022 09:41:39 06/07/2022 10:33:11 Acute bilateral otitis media 089031798 H66.93 Acute bronchitis 6079354 2 J20.9 Health Concerns Section Related Observation LastModified by Organization Detai ls LastModified Time None Recorded Concern Status LastModified by Organization Details LastModified Time None Recorded Advance Directives Directive None Recorded Payers Insurance Date Sequence Insurance Name Policy Number Policy Cook Covered Member ID Cook Member ID Guarantor Name 06/07/2022 1 [facility] HEALTH NET PLAN (MEDICAID HMO) AUDRA Chhaya Adler [id number] Chhaya Adler Notes Date Note Type Note Provider Name and Address Organization Details Recorded Time 05/23/2022 text/html CoughReported bypatient.Notes:con gested cough x 7 day . now developing Wheezing and uncomfortable sleeping . Javier Mcdaniel NP [address] [place], [address], [place] - [facility] 05/23/2022 15:28:43 06/07/2022 text/html Sinus Complaints UCReported bypatient.Notes:liberty ateral ear pain and pressure, wheezing ,chest congestion. denies any SOB, Fever or respiratory distress. Javier Mcdaniel NP [address] [place], [address], [place] - [facility] 06/07/2022 10:31:18 OBGyn Episode No OBEpisode recorded.
== END 2024-10-10 16:28 | disposition home or self-care (01) ==
LOC: HO.HUSH 15:55
PROVIDERS: PCP Nurse Practitioner Family; Visit Provider Nurse Practitioner Family
DX: Z13.9 Encounter for screening, unspecified (principal); R31.29 Other microscopic hematuria; F12.90 Cannabis use, unspecified, uncomplicated
CPT/HCPCS: 99213

== ENCOUNTER 2024-10-10 15:54 | Outpatient (REF) | payer OTHER, SELFPAY ==
[2024-10-10 16:13] LABS: Urine Cytology See Pathology rpt
== END 2024-10-10 15:55 | disposition home or self-care (01) ==
LOC: HO.LNP 15:54
PROVIDERS: PCP Nurse Practitioner Family; Visit Provider Nurse Practitioner Family
DX: R31.29 Other microscopic hematuria (principal); Z13.9 Encounter for screening, unspecified
CPT/HCPCS: 81003; 88112; 99212

== ENCOUNTER 2024-10-27 08:14 | Outpatient (REF) | payer OTHER, SELFPAY ==
--- OUTSIDE RECORDS SUMMARY | 2024-10-27 08:19 | XMS_ITS | Data Portability ---
Author Organization [facility], [address] Address [address] [place] [id number] Care Team Providers Care Masking Machine Feeder Name Role Phone EVERTCIERRA HUGH Primary Care Provider Assessment No assessment recorded. Plan of Treatment Reminders Order Date Submit Date Provider Last Modified By Organization Details Last Modified Time Details Appointments None recorded. Lab None recorded. Referral None recorded. Procedures None recorded. Surgeries None recorded. Imaging None recorded. Medication Orders doxycycline hyclate 100 mg capsule 2022 023 [facility] #2339, [address] [place] [address], [address], 3 10:30:46 benzonatate 200 mg capsule 2022 023 [facility]23[facility], [address] [place] [address], [address], 3 10:30:46 Flovent HFA 220 mcg/actuati on aerosol inhaler 2022 023 [facility] [address] [place] [address], [address], 3 10:30:46 prednisone 50 mg tablet 2022 023 [facility], [address] [place] [address], [address], 3 10:30:46 albuterol sulfate 2.5 mg/3 mL (0.083 %) solution for nebulizatio n 2021 022 [facility] Not available 3 08:01:06 ipratropium bromide 0.02 % solution for inhalation 2021 [facility] Not available 3 08:01:06 benzonatate 200 mg capsule 2021 [facility] [address] [facility], [place], [address], 2 14:51:33 prednisone 20 mg tablet 2021 023 [facility] [address] [facility], [place], [address], 3 10:07:32 albuterol sulfate HFA 90 mcg/actuati on aerosol inhaler 2021 [facility] [address] [facility], [place], [address], 2 14:51:35 Allergy Relief (fluticason e) 50 mcg/actuati on nasal spray,suspe nsion 2021 [facility] [address] [facility], [place], [address], 2 14:51:35 albuterol sulfate 2.5 mg/3 mL (0.083 %) solution for nebulizatio n 2021 [facility], [address] [place] [address], [place], [address], 2 15:28:36 Patient TargetsNo targets recorded. Patient Instructions Encounter Date Encounter Id Patient Instructions Last Modified By Organization Details Last Modified Time 05/23/2022 [id number] cough: care instructions Not available 05/23/2022 14:51:27 [...] as expected. Not available 05/23/2022 14:50:17 06/07/2022 [id number] Acute Sinusitis: Care Instructions Not available 06/07/2022 [...] taking a prescription pain medicine, take an [id number]-vaiajkb medicine, such as acetaminophen (Tylenol), ibuprofen (Advil, [...] Pre (L/min) 200 Not Available [facility] [address] [place] [address], [phone], 05/23/2022 14:49:41 05/23/20 22 05/23/2022 peak flow* Post (L/min) 325 Not Available emelyn bullard[address], [address], 05/23/2022 14:49:41 05/23/20 22 05/23/2022 peak flow* Pulse 88 Not Available lina rojas [address], [address], 05/23/2022 14:49:41 05/23/20 22 05/23/2022 peak flow* Oxygen Saturation 98 Not Available emelyn bullard[address], [address], 05/23/2022 14:49:41 Result Notes None recorded. Problems Name Problem SNOMED Code Status Onset Date Resolution Date Notes Provider Name and Address Organization Details Recorded Time Asthma 373398453 Active 022 Brianna Richmond null, [place] - [facility] 14:15:01 Irritable bowel syndrome 53492495 Active 022 Brianna Richmond null, PA - [facility] 14:15:06 Problem Notes None recorded. Procedures Surgical History Date Name Laterality Status Provider Name and Address Organization Details Recorded Time section completed Brianna Richmond PA - [facility] 05/23/2022 14:15:47 Imaging Results None recorded. Procedure Notes None recorded. Medical Equipment None Reported. Allergies Allergen ID Allergen Name Allergen Category Reaction Reaction Severity Criticality Documentation Date Start Date Code Code System Note Provider Name and Address Organization Details Recorded Time 40037 Ceclor medicatio n Not available Not available low 05/23/2022 5 RxNorm Brianna Richmond null, PA - [facility] 14:14:08 59641 Zithromax medicatio n hives Not available high [...] Updated DateTime 3 165.1 cm 47.4 kg/m2 028700. 83 g 97 % 97 % 79 /min 20 /min 97 [degF] 128 mm[Hg] 80 mm[Hg] MAGDIEL MEZA [facility] 3 10:11:12 Date Recorded Body height Body mass index (BMI) Body weight Body temperature Respiratory rate Heart rate Oxygen saturation Oxygen saturation in Arterial blood by Pulse oximetry Systolic blood pressure Diastolic blood pressure Provider Name and Address Organization Details Last Updated DateTime 2 165.1 cm 47.4 kg/m2 211315. 83 g 98.5 [degF] 20 /min 88 /min 97 % 97 % 110 mm[Hg] 74 mm[Hg] Brianna Chandler [facility] 2 14:16:33 Social History Question Answer Notes LastModified by [employer]ens[employer] Details LastModified Time Tobacco Smoking Status Never Smoker Brianna camilo [facility] 05/23/2022 14:15:34 Have You Had Direct Contact, Or Contact During Intimacy, With Monkeypox Rash, Scabs, Or Body Fluids From A Person With Monkeypox? No Information not available 05/23/2022 Have You Recently Traveled Abroad? No Information not available 05/23/2022 Sex: Unknown Functional Status Question Answer Note LastModified by Valensum Details LastModified Time Do you use any [...] or 50 mcg/0.25mL dose 05/09/2021 completed Brianna Richmond null, PA - [facility] 05/23/2022 14:13:42 COVID-19, mRNA, LNP-S, PF, 30 mcg/0.3 mL dose 09/13/2020 completed Brianna Richmond null, PA - [facility] 05/23/2022 14:13:42 Past Encounters Encounter ID Performer Location Encounter Start Date Encounter Closed Date Diagnosis/Indication Diagnosis SNOMED-CT Code Diagnosis ICD10 Code Diagnosis Note [id number] [address] [address] [address] [place] [address] 06/05/2019 14:33:42 06/05/2019 15:58:26 [id number] [address] [place] [address] 12/15/2020 08:03:03 12/15/2020 08:33:49 [id number] Javier Mcdaniel NP [address] [place] [address] 05/23/2022 12:45:20 05/23/2022 15:26:16 Acute bronchitis 02830607 J20.9 [id number] Javier Mcdaniel NP [address] [place] [address] 06/07/2022 09:41:39 06/07/2022 10:33:11 Acute bilateral otitis media 272349082 H66.93 Acute bronchitis 6207760 2 J20.9 Health Concerns Section Related Observation LastModified by Organization Detai ls LastModified Time None Recorded Concern Status LastModified by Organization Details LastModified Time None Recorded Advance Directives Directive None Recorded Payers Insurance Date Sequence Insurance Name Policy Number Policy Cook Covered Member ID Cook Member ID Guarantor Name 06/07/2022 1 [facility] HEALTH NET PLAN (MEDICAID HMO) AUDRA Chhaya Adler [id number] Chhaya Adler Notes Date Note Type Note Provider Name and Address Organization Details Recorded Time 05/23/2022 text/html CoughReported bypatient.Notes:con gested cough x 7 day . now developing Wheezing and uncomfortable sleeping . Javier Mcdaniel NP [address] [place], [address], [place] - [facility] 05/23/2022 15:28:43 06/07/2022 text/html Sinus Complaints UCReported bypatient.Notes:liberty ateral ear pain and pressure, wheezing ,chest congestion. denies any SOB, Fever or respiratory distress. Javier Mcdaniel NP [address] [place], [address], [place] - [facility] 06/07/2022 10:31:18 OBGyn Episode No OBEpisode recorded.
[2024-10-27 10:20] LABS: MANUAL DIFF FLAG NO
[2024-10-27 10:32] LABS: Basophils Percent Auto 0.3 % (0-2); Eosinophils Absolute Auto 0.1 X10*3/uL (0.0-0.4); Eosinophils Percent Auto 0.9 % (0-4); Hematocrit 42.8 % (37.0-47.0); Hemoglobin 14.3 g/dl (12.0-16.0); Imm Gran Abs Auto 0.02 X10*3/uL (0.00-0.03); Imm Gran Pct Auto 0.3 % (0.0-0.4); Lymphocytes Absolute Auto 1.6 X10*3/uL (1.2-4.9); Lymphocytes Percent Auto 24.6 % (20-40); Mean Corpuscular HGB Conc 33.4 g/dl (31.0-35.0); Mean Corpuscular Hemoglobin 30.6 pg (27.0-33.0); Mean Corpuscular Volume 91.5 fL (80.0-98.0); Monocytes Absolute Auto 0.4 X10*3/uL (0.1-1.2); Monocytes Percent Auto 5.6 % (2-11); Neutrophils Absolute Auto 4.4 x10*3/uL (2.0-8.3); Neutrophils Percent Auto 68.3 % (45-73); Platelet Count 281 X10*3/uL (160-400); Red Blood Count 4.68 X10*6/uL (4.20-5.50); Red Cell Distribution Width 13.5 % (11.0-16.0); White Blood Count 6.5 X10*3/uL (4.8-10.8)
[2024-10-27 10:43] LABS: Appearance Urine Clear; Color Urine Yellow; Glucose Urine UA Negative (Negative); Leukocyte Esterase Urine Negative (Negative); Nitrite Urine Negative (Negative); PH >= 9.0 (5.0-9.0); Urine Blood Negative (Negative); Urine Ketones Negative (Negative); Urine Protein Negative (Neg-Trace)
[2024-10-27 10:57] LABS: Alanine Aminotransferase 11 U/L (0-31); Albumin Level 4.1 g/dL (3.5-5.0); Anion Gap 9 (12-20); Aspartate Amino Transferase 14 U/L (5-31); Bilirubin Total 0.9 mg/dL (0.0-1.0); Blood Urea Nitrogen 15 mg/dL (9-16); Calcium 9.1 mg/dL (8.4-10.2); Carbon Dioxide 25 mmol/L (22-29); Chloride 109 mmol/L (96-108); Cholesterol 149 mg/dL (<200); Estimated Glomerular Filt Rate > 60; Glucose Fasting 78 mg/dL (60-99); HDL Cholesterol 41 mg/dL (>40); LDL Cholesterol Calculated 95 mg/dL (<100); Potassium 4.2 mmol/L (3.3-5.1); Sodium 139 mmol/L (135-145); Total Protein 6.1 g/dL (6.5-8.0); Triglycerides 65 mg/dL (<150)
[2024-10-27 11:19] LABS: TSH reflex Free T4 0.57 uIU/mL (0.32-4.0); Vitamin D 25-OH Total 70.3 ng/mL (>30)
[2024-10-27 11:56] LABS: Alkaline Phosphatase 31 U/L (39-117)
== END 2024-10-27 08:15 | disposition home or self-care (01) ==
LOC: HO.HMGCLDS 08:14
PROVIDERS: PCP Nurse Practitioner Family; Visit Provider Nurse Practitioner Family
DX: Z00.00 Encounter for general adult medical examination without abnormal findings (principal); E55.9 Vitamin D deficiency, unspecified; Z13.6 Encounter for screening for cardiovascular disorders
CPT/HCPCS: 36415; 80053; 80061; 81003; 82306; 84443; 85025

== ENCOUNTER 2025-02-26 12:38 | Outpatient (AMB) | payer OTHER, SELFPAY ==
[2025-02-26 13:55] VITALS: BP 112/74; PULSE 65; TEMP 36.6; O2SAT 100; BMI 32.1
--- NOTE | 2025-02-26 13:55 | MHC.OFFWIV ---
Intake Vital Signs 02/26/25 13:55 Height 5 ft 4 in Weight 187 lb BMI 32.1 BP 112/74 Blood Pressure Location Lt brachial Position Sitting Pulse 65 Pulse Source Pulse Oximeter Temp 97.9 F Temp Source Oral Pulse Oximetry (%) 100 Oxygen Delivery Method Room Air Intake Visit Reasons: ep sinus infection Patient Tobacco Use Status: Former Tobacco user Allergies azithromycin (From ZITHROMAX) Allergy (Unknown, Verified 02/26/25 13:55) hives cefaclor (From CECLOR) Allergy (Unknown, Verified 02/26/25 13:55) UNKNOWN Do you need a note to return to daycare/school/sports/work: Yes HPI HPI Comments History of Present Illness Details History of Present Illness - The patient is a 44-year-old female presenting with symptoms suggestive of a sinus infection. - Symptoms began yesterday morning, including cough, headache, ear congestion, and gum pain. - The patient reports being prone to sinus infections, typically occurring twice a year. - Usual treatment includes antibiotics and steroids, specifically Augmentin and prednisone. - The patient has been taking Zyrtec and Flonase without relief. - No fever was reported, and there is no history of chest pain or shortness of breath. - The patient occasionally uses marijuana and has no known medication allergies. - A significant weight loss from 222 pounds in July to 187 pounds currently was noted. - She denies fever, chills, CP, SOB, abd pain, n/v/d, or dizziness. Physical Exam General: Cooperative, healthy appearing, comfortable, no acute distress and well developed Head: Normal to inspection Ears: Hearing grossly normal bilaterally. No tragus or mastoid tenderness noted. Auditory canals clear bilaterally. TM's normal, not bulging. No fluid noted. Nose: Normal external nose present. Moist mucosa. Turbinates normal bilaterally, not boggy. Face and sinus: Tenderness to palpation of the frontal and maxillary sinuses bilaterally. Neck: Normal visual inspection and Yes full ROM. No lymphadenopathy noted. Respiratory: Normal respiratory effort and able to speak in complete sentences. Clear to auscultation bilaterally Cardiovascular: Regular rate and rhythm. Normal S1 and S2 GI: Normal to inspection. Soft to palpation and nontender, nondistended. No guarding noted. Skin: No rashes or lesions noted [facility] Medical History Nausea Irritable bowel Headache syndrome Dyspepsia Surgical History Hx of emergency section No pertinent past surgical history Family History Father Medical history non-contributory Mother Medical history non-contributory Son No problems noted. Daughter No problems noted. Social History Household Members: Spouse and Children Housing: House Do you presently have visiting nurse or other home services: No Alcohol intake: never Patient Tobacco Use Status: Former Tobacco user e-Cigarette/Vaping Use: Never Used Substance Use Type: Marijuana service: No Current occupational status: employed Current occupation: [employer] Cognitive needs: No Hearing needs: No Vision needs: No Review of Systems Const All systems reviewed & are unremarkable except as noted in HPI and below Physical Exam Vital Signs: Last Vital Signs Temp 97.9 F 02/26/25 13:55 Pulse 65 02/26/25 13:55 BP 112/74 02/26/25 13:55 Pulse Ox 100 02/26/25 13:55 Oxygen Delivery Method Room Air 02/26/25 13:55 BMI result Body Mass Index 32.1 Assessment & Plan Assessment & Plan (1) Sinusitis: Code(s): J32.9 - Chronic sinusitis, unspecified Qualifiers: Sinusitis location: frontal Chronicity: acute Recurrence: recurrent Qualified Code(s): J01.11 - Acute recurrent frontal sinusitis Plan Most likely sinusitis, chronic plan - steam showers - tylenol or motrin as needed for pain or fever - Augmentin BID for 7 days - prednisone once a day for 5 days - continue zyrtec D and Flonase - follow up with PCP Medications: New amoxicillin-pot clavulanate 875-125 mg 1 tab PO Q12H 14 tabs 0RF prednisone 40 mg (2 x 20 mg) PO DAILY 10 tabs 0RF 5 days Coding Level of Care Code Est Pt Level 3 (94741) Diagnoses Acute recurrent frontal sinusitis J01.11 Sinusitis location: frontal Chronicity: acute Recurrence: recurrent
== END 2025-02-26 14:48 | disposition home or self-care (01) ==
PROVIDERS: PCP Nurse Practitioner Family; Visit Provider Physician Assistant Medical
DX: J01.11 Acute recurrent frontal sinusitis (principal)